=== PATIENT | male | born 1960 | race Caucasian/White ===

== ENCOUNTER 2023-04-02 07:47 | Emergency (ER) | payer BC, SELFPAY ==
[2023-04-02 07:50] VITALS: BP 125/48
--- NOTE | 2023-04-02 08:38 | ED.GENMED ---
History of Present Illness
General
Chief Complaint: Fall
Source: patient
Exam Limitations: none
Time Seen by Provider: 04/02/23 08:08
Nursing documentation reviewed up to this point in time: agreed with
Travel History
Have you had any contact with someone who has COVID-19?: No
Do you have any symptoms of coronavirus? Fever > 100 degrees, chills, cough, shortness of breath, sore throat, loss of taste or smell, muscle aches, or headache?: No
History of Present Illness
History of Present Illness:
62-year-old male with past medical history of A-fib currently on Xarelto, hypertension hyperlipidemia presenting to the emergency department today after a slip and fall. He claims that he was walking slipped and fell mainly on his right shoulder
and right elbow also may have hit his head did not blackout denies nausea vomiting does have a mild headache at this point. Does take Xarelto for atrial fibrillation. Denies any chest pain does have some mild back pain was able to stand up and
ambulate.
Past History
Past History
ED Past Medical History: Arrthythmia (Atrial fibrillation), CAD, HTN, Hypercholesterolemia and [place]
ED Past Surgical History: Cardiac
Social History
Tobacco: Non-smoker
Alcohol: None
Drug: None
Personal:
Living: with family
Employment: Employed
Family History
Family History: Other (Mother with leukemia)
Review of Systems
Review of Systems
Allergies reviewed?: Yes
All Other Systems: ROS reviewed and negative except as documented in HPI and ROS
Phy Exam
Physical Exam
Physical Exam:
GENERAL: Alert , in no apparent distress
EYE: pupils equal and reactive
NECK: Mild pain to the right lateral posterior neck no midline pain supple, no significant adenopathy.
ENT: o/p clr, mmm.
CARDIAC: Regular rate and rhythm .
LUNGS: Clear breath sounds bilaterally, no acute respiratory distress, no wheezes/rales/rhonchi
ABDOMEN: Soft, without focal tenderness, no r/g, no cvat
NEUROLOGICAL: Alert and oriented, no focal neuro deficits
SKIN: Warm and dry, skin intact.
MUSCULOSKELETAL: Tenderness palpation to the right lateral and anterior shoulder also mild tenderness to the olecranon but otherwise able to high scaler push and pull with the upper extremities bilaterally. Very minimal tenderness to the low back no
midline tenderness. Mild pain to the lumbar paraspinals.
PSYCH: Normal and appropriate interaction.
Course
Orders/Labs/Results
Orders:
Orders
04/02/23 08:21
CT Cervical Spine W/o Iv Contr Urgent
Comment:
Reason For Exam: call neck pain
CT Head W/o Iv Contrast Urgent
Comment:
Reason For Exam: fall xarelto
CR Elbow - Right Min 3 Views Urgent
Comment:
Reason For Exam: fall right elbow pain
CR Shoulder, Trauma - Right Urgent
Comment:
Reason For Exam: fall shoulder pain
04/02/23 08:22
Lumbar Spine, 2 or 3 View [CR Lumbar Spine 2 Or 3 Views] Urgent
Comment:
Reason For Exam: fall back pain
04/02/23 09:29
Sling Right-Treatment ONCE
Vital Signs
Initial and Last Documented VS:
Initial Vital Signs
Temp Pulse Resp BP Pulse Ox
98.7 F 77 18 125/48 97
04/02/23 07:50 04/02/23 07:50 04/02/23 07:50 04/02/23 07:50 04/02/23 07:50
Last Documented Vital Signs
Temp Pulse Resp BP Pulse Ox
98.7 F 65 20 130/73 97
04/02/23 07:50 04/02/23 09:16 04/02/23 09:16 04/02/23 09:16 04/02/23 09:16
MDM/Problems Addressed
MDM/Problems Addressed:
62-year-old male presenting to the emergency department after a slip and fall on ice mainly concerned of right-sided shoulder discomfort also some pain to the right elbow some mild neck back pain and also mild headache. Patient is on Xarelto may
have hit his head. Did not lose consciousness no vomiting no numbness or weakness. CT scan of head and neck were obtained. No emergent findings on head CT or neck CT. X-ray of the right shoulder shows potential fracture to the proximal humerus.
Patient was placed in a sling will follow-up closely with orthopedics. Otherwise no emergent findings able to ambulate stable for outpatient management return precautions given.
*Critical Care Note
Total Time (30-74mins, 75-104mins- exclusive of procedures): Not Applicable
ED Attending Note
-
Portions of this chart may have been created with voice recognition software.� Occasional wrong word or��sound alike� substitutions may have occurred due to the inherent limitations of voice recognition software.
Discharge Plan
Departure
Patient Disposition: Home (Routine Discharge)
Date of Disposition: 04/02/23
Time of Disposition: 09:29
Patient with high blood pressure during this ER visit?: No
Condition: Good
Covid-19: Not Applicable
Discharge Problem:
Fracture of shoulder, Back pain, Fall
Instructions: Low Back Pain (DC), Upper Arm Fracture
Prescriptions:
New
diazepam [Valium] 5 mg tablet
5 mg PO BID PRN (Reason: muscle spasm) Qty: 7 0RF
No Action
aspirin 81 MG tablet,delayed release (DR/EC)
81 mg PO DAILY
amlodipine 5 MG tablet
5 mg PO DAILY
lisinopril 5 MG tablet
40 mg PO DAILY
ezetimibe 10 MG tablet
10 mg PO DAILY
atorvastatin 80 MG tablet
80 mg PO DAILY
apixaban [Eliquis] 5 MG tablet
5 mg PO BID Qty: 60 0RF
metoprolol succinate 50 MG tablet extended release 24 hr
50 mg PO BID
amiodarone [Pacerone] 200 MG tablet
200 mg PO BID Qty: 60 0RF
Rx Instructions:
please take 200mg twice daily for 30 days then decrease to 200mg daily!
FILL FIRST!
amiodarone [Pacerone] 200 MG tablet
200 mg PO DAILY Qty: 30 11RF
Rx Instructions:
please take 200mg twice daily for 30 days then decrease to 200mg daily!
FILL SECOND!
metoprolol tartrate 50 MG tablet
75 mg PO BID Qty: 60 0RF
Referrals:
Dileep Ortiz MD [Family Provider] -
Benny Tadeo MD [Active] - Follow up in 1 week
Stand Alone Forms: Return to Work
Activity Restrictions/Additional Instructions:
You came to the emergency department today after a fall. You are found to have a fracture of the right shoulder. Please wear the sling until orthopedic follow-up within 1 week. Otherwise you had a normal head CT and neck CT. Please rest ice
compress and elevate all other injuries. Return to the emergency department for any worsening, new or concerning symptoms.
Interventions
Interventions:
*Risk Screen - Suicide Last Done: 04/02/23 07:50
*General Assessment Last Done: 04/02/23 07:50
*Neglect/Abuse Screening Last Done: 04/02/23 07:50
ED-Musculoskeletal Assessment Last Done: 04/02/23 09:16
ED- Neurological Assessment Last Done: 04/02/23 09:16
ED-Skin Assessment Last Done: 04/02/23 09:16
[2023-04-02 09:16] VITALS: BP 130/73
== END 2023-04-02 10:00 | disposition home or self-care (01) ==
LOC: EMR 07:47
PROVIDERS: EMERGENCY PHYSICIAN Emergency Medicine; FAMILY PHYSICIAN Family Medicine
DX: S42.91XA Fracture of right shoulder girdle, part unspecified, initial encounter for closed fracture (principal); M54.9 Dorsalgia, unspecified; M54.2 Cervicalgia; R51.9 Headache, unspecified; M25.521 Pain in right elbow; W00.0XXA Fall on same level due to ice and snow, initial encounter; Y93.01 Activity, walking, marching and hiking; I25.10 Atherosclerotic heart disease of native coronary artery without angina pectoris; I48.91 Unspecified atrial fibrillation; E78.00 Pure hypercholesterolemia, unspecified; G62.9 Polyneuropathy, unspecified; I10 Essential (primary) hypertension; I25.2 Old myocardial infarction; Z95.5 Presence of coronary angioplasty implant and graft; Z79.01 Long term (current) use of anticoagulants; Z79.82 Long term (current) use of aspirin
CPT/HCPCS: 99285; 70450; 72100; 72125; 73030; 73080

== ENCOUNTER 2023-06-04 07:28 | Emergency (ER) | payer BC, SELFPAY ==
[2023-06-04 07:29] VITALS: BP 164/89
--- NOTE | 2023-06-04 08:11 | ED.GENMED ---
History of Present Illness
General
Chief Complaint: Breathing Problem
Source: patient
Time Seen by Provider: 06/04/23 07:48
Travel History
Have you had any contact with someone who has COVID-19?: No
Do you have any symptoms of coronavirus? Fever > 100 degrees, chills, cough, shortness of breath, sore throat, loss of taste or smell, muscle aches, or headache?: No
History of Present Illness
History of Present Illness:
63-year-old male presents emergency room complaining of shortness of breath with exertion. Patient began experiencing the symptoms months ago. It has progressed in nature. Today he felt short of breath walking from his apartment to his car. He
felt so short of breath he felt like 'I ran a marathon'. Patient did discuss the symptoms with his event specialist about a month ago. An echocardiogram, pulmonary function test and blood work were ordered. Patient did schedule the PFTs but is not
scheduled the echo and has not had the blood work obtained. He called cardiology office today explaining that he felt more short of breath who of course referred him to the emergency room. Patient states he has some 'soreness' in his chest when he
takes a deep breath and also has coughing spasms when he takes a deep breath. He denies any smoking history. Patient does take amiodarone.
Past History
Past History
ED Past Medical History: Arrthythmia (Atrial fibrillation), CAD, HTN, Hypercholesterolemia and [place]
ED Past Surgical History: Cardiac
Social History
Tobacco: Non-smoker
Alcohol: None
Drug: None
Personal:
Living: with family
Employment: Employed
Family History
Family History: Other (Mother with leukemia)
Phy Exam
Physical Exam
Physical Exam:
General: Awake, Alert, Oriented X3. No acute distress.
Vitals: unremarkable
Head: Atraumatic
Eyes: Pupils equal, EOMI
Throat: Airway intact, no exudates
Neck: Trachea midline
Lungs: Coughing with deep inspiration but no significant wheezing.
Heart: Regular rate, no murmurs
Abd: Soft, Nontender, No pulsatile mass
Neuro: Nonfocal
Skin: Warm, dry, no rash
Extremities: pulses equal b/l, no edema
Scores
Heart Failure Risk
Heart Failure Risk Score: Not Applicable
Course
Orders/Labs/Results
Orders:
Orders
06/04/23 07:32
ECG [Electrocardiogram (*1)] Urgent
Reason for Study: Shortness of Breath
EKG- Treatment ONCE
06/04/23 08:04
Ipratropium/Albuterol Sulfate [Duoneb] 3 ml INH R NOW STA
06/04/23 08:05
CR Chest - 2 Views Urgent
Comment:
Reason For Exam: shortness of breath
06/04/23 08:13
Complete Blood Count/With Diff Urgent
Comprehensive Metabolic Panel Urgent
D-Dimer Urgent
NT-proBNP Urgent
Abnormal Lab Results
06/04/23
08:13
Hgb 10.7 L g/dL
(13.0-18.0)
Hct 35.4 L %
(39.0-52.0)
MCV 69.3 L fL
(80.0-94.0)
MCH 20.9 L pg
(27.0-31.0)
MCHC 30.2 L g/dL
(33.0-37.0)
RDW 18.1 H %
(11.5-14.5)
Absolute Neuts (auto) 6.6 H 10^3/uL
(1.4-6.5)
Absolute Lymphs (auto) 0.4 L 10^3/uL
(1.2-3.4)
Absolute Monos (auto) 1.0 H 10^3/uL
(0.1-0.6)
Neutrophils % 82.7 H %
(42.2-75.2)
Lymphocytes % 4.6 L %
(20.5-51.1)
Monocytes % 11.9 H %
(1.7-9.3)
Sodium 132 L mmol/L
(135-145)
Glucose 110 H mg/dl
(70-99)
06/04/23 08:13
06/04/23 08:13
Vital Signs
Initial and Last Documented VS:
Initial Vital Signs
Temp Pulse Resp BP Pulse Ox
99.3 F 77 20 164/89 98
06/04/23 07:29 06/04/23 07:29 06/04/23 07:29 06/04/23 07:29 06/04/23 07:29
Last Documented Vital Signs
Temp Pulse Resp BP Pulse Ox
99.3 F 70 23 157/83 100
06/04/23 07:29 06/04/23 08:30 06/04/23 08:30 06/04/23 08:12 06/04/23 08:30
MDM/Problems Addressed
Differential Diagnosis Includes:
Heart failure, anemia, PE, pneumonitis
MDM/Problems Addressed:
Patient presents with dyspnea on exertion. His chest x-ray is essentially unremarkable. Labs show anemia with a hemoglobin of 10.3. Indices indicate iron deficiency. His hemoglobin is 3 g below what he had a year ago. No obvious rectal
bleeding. Patient will require workup for anemia. Will start him on iron given his indices suggest iron deficiency anemia but primary care doctor contacted to help arrange close outpatient follow-up.
*Radiology
Radiology exam reviewed: radiology read reviewed
*Pulse Oximetry
Patient hypoxic: no
*EKG
Interpreted by ED Provider?: Yes
Heart Rate: 77
Rate: normal
Rhythm: sinus
[place]: left axis deviation
Interval: normal interval
QRS Pattern: normal QRS
Ischemia: no ischemia
*Ditch Rider Interpretation
Rate: normal
Interpretation: normal
Rhythm: sinus
*Critical Care Note
Total Time (30-74mins, 75-104mins- exclusive of procedures): Not Applicable
ED Attending Note
-
Portions of this chart may have been created with voice recognition software.� Occasional wrong word or��sound alike� substitutions may have occurred due to the inherent limitations of voice recognition software.
Discharge Plan
Departure
Patient Disposition: Home (Routine Discharge)
Date of Disposition: 06/04/23
Time of Disposition: 09:42
Patient with high blood pressure during this ER visit?: Yes
Condition: Good
Discharge Problem:
Dyspnea on exertion, Anemia
Instructions: Anemia Caused by Low Iron, Adult (DC), Shortness of Breath (Dyspnea) (DC)
Prescriptions:
New
ferrous sulfate [Iron (ferrous sulfate)] 325 mg (65 mg iron) tablet
325 mg PO DAILY Qty: 30 0RF
No Action
aspirin 81 MG tablet,delayed release (DR/EC)
81 mg PO DAILY
amlodipine 5 MG tablet
5 mg PO DAILY
ezetimibe 10 MG tablet
10 mg PO DAILY
atorvastatin 80 MG tablet
80 mg PO DAILY
amiodarone [Pacerone] 200 MG tablet
200 mg PO DAILY Qty: 30 11RF
metoprolol succinate 100 mg Tablet Extended Release 24 Hr
100 mg PO BID
clonazepam 1 mg Tablet
1 mg PO HS PRN (Reason: sleep)
lisinopril 40 mg Tablet
40 mg PO DAILY
Xarelto 20 mg Tablet
20 mg PO QPM
Referrals:
Dileep Ortiz MD [Family Provider] -
Activity Restrictions/Additional Instructions:
You came to the emergency room for evaluation of shortness of breath. Your chest x-ray does not show any significant abnormalities. Your blood work shows that you have anemia which appears to be related to low iron. The rest your labs are
unremarkable. There is no evidence that you have heart failure. You need to follow-up with your primary care doctor to have further evaluation for the anemia. In the meantime we will start you on iron. The iron tablets can cause constipation so
you should take a stool softener along with the iron tablets.
Interventions
Interventions:
*Risk Screen - Suicide Last Done: 06/04/23 08:13
*General Assessment Last Done: 06/04/23 08:13
*Neglect/Abuse Screening Last Done: 06/04/23 08:13
ED- Fall Risk Assessment Last Done: 06/04/23 08:13
*ED COVID-19 Vaccine History Last Done: 06/04/23 07:29
*Nursing Disposition Last Done: 06/04/23 09:50
ED- Cardiac Assessment Last Done: 06/04/23 08:13
ED- Pulmonary Assessment Last Done: 06/04/23 08:13
Discharge Date and Time
Discharge Date/Time: 06/04/23 09:56
Print Language: MALAY
[2023-06-04 08:12] VITALS: BP 157/83
[2023-06-04 08:13] VITALS: BMI 35.6
[2023-06-04] MEDS: DUONEB 3 ML INH (08:20)
[2023-06-04 08:38] LABS: % Basophils 0.2 % (0-2); % Eosinophils 0.2 % (0-6); % Immature Granulocytes 0.4 % (0-0.5); % Lymphocytes 4.6 % (20.5-51.1); % Monocytes 11.9 % (1.7-9.3); % Neutrophils 82.7 % (42.2-75.2); Absolute Lymphocytes 0.4 10^3/uL (1.2-3.4); Absolute Neutrophils 6.6 10^3/uL (1.4-6.5); Hematocrit 35.4 % (39.0-52.0); Hemoglobin 10.7 g/dL (13.0-18.0); Mean Corp Hgb Conc. 30.2 g/dL (33.0-37.0); Mean Corpuscular Hgb 20.9 pg (27.0-31.0); Mean Corpuscular Volume 69.3 fL (80.0-94.0); Mean Platelet Volume 9.7 fL (7.4-10.4); Nucleated Red Blood Cells % 0 % (-); Platelet Count 238 10^3/uL (130-400); Red Blood Cell Count 5.11 10^6/uL (4.70-6.10); Red Cell Dist. Width 18.1 % (11.5-14.5)
[2023-06-04 08:57] LABS: ALT (SGPT) 24 U/L (0-50); AST (SGOT) 17 U/L (17-59); Alkaline Phosphatase 111 U/L (38-126); Blood Urea Nitrogen 20 mg/dl (9-20); Carbon Dioxide 25 mmol/L (22-30); Chloride 100 mmol/L (98-107); Estimated Creatinine Clearance 101 ml/min; Glucose 110 mg/dl (70-99); Potassium 4.9 mmol/L (3.5-5.1); Sodium 132 mmol/L (135-145); Total Bilirubin 0.8 mg/dl (0.2-1.3); Total Protein 6.5 g/dl (6.3-8.2); eGFR > 60.00
[2023-06-04 09:00] LABS: NT-proBNP 629 pg/ml
[2023-06-04 09:05] LABS: D-Dimer < 0.27 ug/mlFEU (0.00-0.50)
== END 2023-06-04 09:56 | disposition home or self-care (01) ==
LOC: EMR 07:28
PROVIDERS: EMERGENCY PHYSICIAN Emergency Medicine; FAMILY PHYSICIAN Family Medicine
DX: R06.09 Other forms of dyspnea (principal); D64.9 Anemia, unspecified; I10 Essential (primary) hypertension
CPT/HCPCS: 99285; 94640; 71046; 80053; 83880; 85025; 85379; 93005

== ENCOUNTER 2023-06-05 05:42 | Observation (INO) | payer BC, SELFPAY ==
[2023-06-04 20:27] VITALS: BP 173/100
[2023-06-04 21:17] LABS: COVID-19 Antigen Negative (Negative)
[2023-06-04 21:44] VITALS: BP 145/79
[2023-06-04 21:59] VITALS: BMI 38.9
[2023-06-04 22:00] VITALS: BP 139/75
[2023-06-04 22:30] VITALS: BP 142/79
[2023-06-05] VITALS (17 sets, daily range): BP systolic 123–145; BP diastolic 63–90; PULSE 89–90; O2SAT 95–96; BMI 37.8
[2023-06-05 01:44] LABS: % Basophils 0.3 % (0-2); % Eosinophils 0.1 % (0-6); % Immature Granulocytes 0.4 % (0-0.5); % Lymphocytes 3.4 % (20.5-51.1); % Monocytes 10.9 % (1.7-9.3); % Neutrophils 84.9 % (42.2-75.2); Absolute Lymphocytes 0.3 10^3/uL (1.2-3.4); Absolute Monocytes 1.1 10^3/uL (0.1-0.6); Absolute Neutrophils 8.4 10^3/uL (1.4-6.5); Hematocrit 38.9 % (39.0-52.0); Hemoglobin 11.6 g/dL (13.0-18.0); Mean Corp Hgb Conc. 29.8 g/dL (33.0-37.0); Mean Corpuscular Hgb 20.9 pg (27.0-31.0); Mean Corpuscular Volume 70.1 fL (80.0-94.0); Mean Platelet Volume 9.8 fL (7.4-10.4); Nucleated Red Blood Cells % 0 % (-); Platelet Count 225 10^3/uL (130-400); Red Blood Cell Count 5.55 10^6/uL (4.70-6.10); White Blood Cell Count 9.9 10^3/uL (4.8-10.8)
--- NOTE | 2023-06-05 01:50 | ED.GENMED ---
History of Present Illness
General
Chief Complaint: Breathing Problem
Source: patient
Exam Limitations: none
Time Seen by Provider: 06/05/23 00:44
Travel History
Have you had any contact with someone who has COVID-19?: No
Do you have any symptoms of coronavirus? Fever > 100 degrees, chills, cough, shortness of breath, sore throat, loss of taste or smell, muscle aches, or headache?: No
History of Present Illness
History of Present Illness:
This is a 63 year old male that comes in with c/o bilateral leg weakness. States that he was here earlier today and he was discharged. Stats that his leg weakness progressed and he can hardly stand up. States that he is SOB with standing. States
that he has a cough, fever, with chills, nausea, headache, dizziness, . Denies any chest pain, no bowel or bladder incontinence, urinary burning,
Past History
Past History
ED Past Medical History: Arrthythmia (Atrial fibrillation), CAD, HTN, Hypercholesterolemia, CT (X 2) and Other (Back pain, Numbness in arms and legs)
ED Past Surgical History: Cardiac (Multiple stents) and Orthopedic (right knee surgery, Ulnar nerve removed Left elbow)
Social History
Tobacco: Non-smoker
Alcohol: Occasional
Drug: None
Personal:
Living: with family
Employment: Employed
Family History
Family History: Other (Mother with leukemia)
Review of Systems
Review of Systems
All Other Systems: ROS reviewed and negative except as documented in HPI and ROS
Constitutional: Reports fever and chills
EENT: Reports no symptoms
Respiratory: Reports cough and trouble breathing
Cardiac: Reports no symptoms; Denies chest pain
ABD/GI: Reports nausea; Denies abdominal pain, vomiting or diarrhea
: Reports no symptoms; Denies dysuria, frequency, incontinence or urgency
Musculoskeletal: Reports other (Bilateral leg weakness)
Skin: Reports no symptoms
Neurological: Reports dizzy and headache
Psychiatric: Reports no symptoms
Phy Exam
General Physical Exam
General Presentation: no apparent distress
General age: appears stated age
General Skin: warm and dry
General Habitus: elderly, obese and poor hygiene
General Mental: alert
General Hydration: appears well hydrated
ENT Exam
ENT Exam: TM's normal, pharynx normal and neck supple
Eye Exam
Eye Exam: PERRL and EOMI
Cardiovascular Exam
Cardiovascular Exam: regular rate/rhythm and normal peripheral pulses
Pulmonary Exam
Pulmonary Exam: lungs clear, no respiratory distress, no rales, chest non tender, no crackles, no rhonchi, no wheezing and other (Dry cough noted)
Gastrointestinal Exam
Gastrointestinal Exam: normal bowel sounds, non tender, soft, no organomegaly, no pulsatile mass, non distended and other (Obese)
NIH Stroke Score
Level of Consciousness: 0 - Alert
LOC questions: 0-Answers both correctly
LOC Commands: 0-Performs both correctly
Best Gaze: 0-Normal
Visual Cruz: 0=Normal, no visual loss
Facial palsy: 0=Normal, symmetrical
Motor - Right Arm: 0=No drift 10 seconds
Motor - Left Arm: 0=No drift 10 seconds
Motor - Right Le-No drift 5 seconds (Unable to hold legs up)
Motor - Left Le-No drift 5 seconds (Unable to hold legs up)
Limb Ataxia: 0-Absent
Sensation: 0-Normal
Best Language: 0-No aphasia
Dysarthria: 0-Normal
Extinction and Inattention: 0-No abnormality
Total Score:: 0
Musculoskeletal Exam
Musculoskeletal Exam: other (Push pulls slightly weaker left foot, Hand grasp slightly weaker left hand)
Skin Exam
Skin Exam: normal color, warm/dry, no rash and no petechia
Psychiatric Exam
Psychiatric Exam: normal mood/affect
Scores
Heart Failure Risk
Heart Failure Risk Score: Not Applicable
Course
Orders/Labs/Results
Orders:
Orders
06/04/23 20:35
COVID-19 Antigen Urgent
Source: Nasal Swab
Influenza A+B Rapid Molecular Urgent
LIANNA Source: Nasal Swab
Specimen Description:
06/05/23 01:31
CMP [Comprehensive Metabolic Panel] Urgent
Complete Blood Count/With Diff Urgent
06/05/23 01:48
CT Chest With Iv Contrast Urgent
Comment:
Reason For Exam: SOB, weakness, Cough
CT Head W/o Iv Contrast Urgent
Comment:
Reason For Exam: Leg weakness
06/05/23 01:53
Urinalysis Reflex To Culture Urgent
06/05/23 02:00
Electrocardiogram (*1) Urgent
Reason for Study: Fatigue / Weakness
EKG- Treatment ONCE
Troponin I Urgent
Abnormal Lab Results
06/05/23
01:31
Hgb 11.6 L g/dL
(13.0-18.0)
Hct 38.9 L %
(39.0-52.0)
MCV 70.1 L fL
(80.0-94.0)
MCH 20.9 L pg
(27.0-31.0)
MCHC 29.8 L g/dL
(33.0-37.0)
RDW 19.0 H %
(11.5-14.5)
Absolute Neuts (auto) 8.4 H 10^3/uL
(1.4-6.5)
Absolute Lymphs (auto) 0.3 L 10^3/uL
(1.2-3.4)
Absolute Monos (auto) 1.1 H 10^3/uL
(0.1-0.6)
Neutrophils % 84.9 H %
(42.2-75.2)
Lymphocytes % 3.4 L %
(20.5-51.1)
Monocytes % 10.9 H %
(1.7-9.3)
Sodium 134 L mmol/L
(135-145)
Carbon Dioxide 20 L mmol/L
(22-30)
Glucose 112 H mg/dl
(70-99)
06/05/23 01:31
06/05/23 01:31
H/H slightly low Anemia. Negative for COVID and Influenza, Carbon dioxide slightly low, glucose nonfasting,
Vital Signs
Initial and Last Documented VS:
Initial Vital Signs
Temp Pulse Resp BP Pulse Ox
100.7 F H 88 24 173/100 97
06/04/23 20:27 06/04/23 20:27 06/04/23 20:27 06/04/23 20:27 06/04/23 20:27
Last Documented Vital Signs
Temp Pulse Resp BP Pulse Ox
100.7 F H 84 31 142/79 95
06/04/23 20:27 06/04/23 23:15 06/04/23 23:15 06/04/23 22:30 06/04/23 22:45
MDM/Problems Addressed
Differential Diagnosis Includes:
CVA, PNA, UTI
MDM/Problems Addressed:
This is a 63 year old male that was seen here earlier today and sent home. Patient come back stating that he can't walk and his bilateral legs are weak. States that he has a fever, chills, nausea, headache and dizziness. States that he is also SOB.
Will get las. CT head, CT chest and admit as patient is unable to stand for any length of time and needed to be removed from the BR in a wheelchair. Will admit
Hospitalist notified about admission.
Chronic conditions affecting care: CAD
Acute Exacerbation and/or Progression of Chronic Illness: CAD
*Radiology
Radiology exam reviewed: radiology read reviewed (CT head night hawk-No acute intracranial process. NO intracranial bleed. No calvarial fracture. Chest CT Night hawk-Extensive coronary artery calcificaions. Normal heart size. NO pleural or
pericardial effusions. MIld atelectasis at the lung base. No Pneumonia. Mild multilevel degenerative changes) and other (CT deborah=with in the spine)
*Pulse Oximetry
Patient hypoxic: no
*Chiropractic Doctor Interpretation
Rate: Chiropractic Doctor- N/A
*Critical Care Note
Total Time (30-74mins, 75-104mins- exclusive of procedures): Not Applicable
ED Attending Note
-
Portions of this chart may have been created with voice recognition software.� Occasional wrong word or��sound alike� substitutions may have occurred due to the inherent limitations of voice recognition software.
Discharge Plan
Departure
Patient Disposition: Admit
Date of Disposition: 06/05/23
Time of Disposition: 04:10
Admit to: Med/Surg
Presentation/result/management discussed w/ accepting MD/DO: Hospitalist
Patient with high blood pressure during this ER visit?: Yes
Condition: Good
Covid-19: Not Applicable
Discharge Problem:
Weakness, Fever, SOB (shortness of breath)
Prescriptions:
No Action
aspirin 81 MG tablet,delayed release (DR/EC)
81 mg PO DAILY
amlodipine 5 MG tablet
5 mg PO DAILY
ezetimibe 10 MG tablet
10 mg PO DAILY
atorvastatin 80 MG tablet
80 mg PO DAILY
amiodarone [Pacerone] 200 MG tablet
200 mg PO DAILY Qty: 30 11RF
metoprolol succinate 100 mg Tablet Extended Release 24 Hr
100 mg PO BID
clonazepam 1 mg Tablet
1 mg PO HS PRN (Reason: sleep)
lisinopril 40 mg Tablet
40 mg PO DAILY
Xarelto 20 mg Tablet
20 mg PO QPM
ferrous sulfate [Iron (ferrous sulfate)] 325 mg (65 mg iron) tablet
325 mg PO DAILY Qty: 30 0RF
Referrals:
Dileep Ortiz MD [Family Provider] -
Interventions
Interventions:
*Risk Screen - Suicide Last Done: 06/04/23 20:27
*General Assessment Last Done: 06/04/23 20:27
*Neglect/Abuse Screening Last Done: 06/04/23 20:27
ED- Fall Risk Assessment Last Done: 06/04/23 21:46
*ED COVID-19 Vaccine History Last Done: 06/04/23 21:46
ED- Cardiac Assessment Last Done: 06/04/23 21:46
ED- Pulmonary Assessment Last Done: 06/04/23 21:46
Discharge Date and Time
Print Language: CZECH
[2023-06-05 01:53] LABS: ALT (SGPT) 24 U/L (0-50); AST (SGOT) 18 U/L (17-59); Albumin 4.4 g/dl (3.5-5.0); Alkaline Phosphatase 114 U/L (38-126); Blood Urea Nitrogen 16 mg/dl (9-20); Calcium 8.8 mg/dl (8.4-10.2); Carbon Dioxide 20 mmol/L (22-30); Chloride 102 mmol/L (98-107); Estimated Creatinine Clearance 106 ml/min; Glucose 112 mg/dl (70-99); Potassium 4.3 mmol/L (3.5-5.1); Sodium 134 mmol/L (135-145); Total Bilirubin 0.6 mg/dl (0.2-1.3); Total Protein 6.9 g/dl (6.3-8.2); eGFR > 60.00
--- NOTE | 2023-06-05 05:06 | HPS.HSE ---
Family Physician
-
Family Physician: Dileep Ortiz
Chief Complaint
-
Weakness, Cough, Difficulty walking
History of Present Illness
Patient is a 63y M with PMH significant for ASCVD, hypertension and obesity who presents to ED complaining of weakness, cough, dyspnea with exertion and difficulty walking. Patient states that he has been having symptoms of LE weakness,
difficulty walking and SOB with exertion / activity for several months now. He was seen by his Investment Manager (Dr. Fitzpatrick) last month and outpatient testing was ordered and has yet to be completed. His amiodarone dose was decreased by 1/2 at that
time.
Patient states that since then his symptoms have become 'exponentially worse'.
He presented to the ED earlier today with these complaints. Work-up was unremarkable with the exception of anemia that was new from prior. He was prescribed iron supplementation and advised to follow-up with his outpatient physicians.
Patient returns this evening with same complaints and also notes cough, chills and sore throat. These symptoms were not mentioned / noted during his earlier visit.
Patient states that he did have COVID about 6 weeks ago.
No other recent illnesses or travel or known sick contacts.
Patient was initially ambulating during this ED visit - in the room, hallways, to the bathroom, etc. However, at some point her noted that he was no longer able to ambulate.
He states that he has had difficulty standing / walking due to LE weakness - again for the past few months but worse over the past few weeks.
No fall, injury or trauma.
Medical History
Past Medical History
Past Medical History: Reports Other
Additional Past Medical History:
ASCVD
h/o Ischemic Cardiomyopathy with Recovered LVEF
Hypertension
Dyslipidemia
Paroxysmal Atrial Fibrillation
Morbid Obesity
Past Surgical History: Reports Other
Additional Past Surgical History:
PTCA with Stent
Social History
Tobacco: Non-smoker
Alcohol: Occasional
Drug: None
Family History
Family History: Not pertinent
Allergies / Home Medications
Allergies reflects when Allergies were last updated in [facility].
Home Medications with original date entered in [facility]
Allergy/Medication List:
Allergies
Allergy/AdvReac Type Severity Reaction Status Date / Time
No Known Allergies Allergy Verified 06/04/23 07:30
Home Medications
aspirin 81 mg tablet,delayed release 81 mg PO DAILY Blood clot prevention/tx 06/05/15
amlodipine 5 mg tablet 5 mg PO DAILY Blood pressure 08/27/17
atorvastatin 80 mg tablet 80 mg PO DAILY High cholesterol 05/11/20
ezetimibe 10 mg tablet 10 mg PO DAILY High cholesterol 05/11/20
lisinopril 40 mg tablet 40 mg PO DAILY 06/04/23
rivaroxaban 20 mg tablet (Xarelto) 20 mg PO QPM 06/04/23
amiodarone 200 mg tablet (Pacerone) 100 mg PO DAILY 06/05/23
metoprolol succinate 50 mg tablet,extended release 24 hr 50 mg PO BID 06/05/23
Review of Systems
-
History Source: Patient
A 12 point ROS was completed and negative except as noted: Yes
Constitutional: Reports Fatigue and Chills; Denies Fever
EENT: Reports Sore Throat
Respiratory: Reports Cough and Trouble Breathing
Cardiac: Denies Chest Pain, Palpitations or Syncope
Abdomen/GI: Reports Nausea; Denies Abdominal Pain, Vomiting, Diarrhea or Constipated
: Denies Dysuria, Frequency or Flank Pain
Musculoskeletal: Reports Joint Pain; Denies Edema
Neurological: Reports Weakness; Denies Dizzy, Headache or Numbness
Psych: Denies Depression or Anxiety
Physical Exam
Vital Signs
Vital Signs
Temp Pulse Resp BP Pulse Ox
100.7 F H 84 31 142/79 95
06/04/23 20:27 06/04/23 23:15 06/04/23 23:15 06/04/23 22:30 04/17/24 22:45
Physical Exam
General: Other (63y M in no acute distress.)
HEENT: Other (Thick neck. No appreciable JVD.)
Respiratory: Other (Decreased BS throughout. Otherwise clear. Cough occasionally during exam.)
Cardiac: S1/S2 and Regular Rhythm; No Murmur
GI: Other (Obese, not tender. Pos BS.)
Musculoskeletal: No Clubbing, No Cyanosis and No Edema
Neuro: AO x 3 and Nonfocal/grossly intact
Laboratory Results
-
06/05/23 01:31
06/05/23 01:31
Laboratory Results
Total Bilirubin 0.6 mg/dl (0.2-1.3) 06/05/23 01:31
AST 18 U/L (17-59) 06/05/23 01:31
ALT 24 U/L (0-50) 06/05/23 01:31
Alkaline Phosphatase 114 U/L (38-126) 06/05/23 01:31
Impression/Plan
-
A/P: Patient is a 63y M with PMH significant for ASCVD, cardiomyopathy and morbid obesity who presents to ED complaining of weakness, WALLS, cough, etc.
Cough / Fever
- Observe overnight for further evaluation and treatment.
- CXR and CT scan negative for pulmonary infiltrates.
- COVID / influenza negative in the ED.
- Tmax here 100.7.
- Observe off of abx for now.
- Check procalcitonin.
- Supportive care for cough, sore throat, etc.
WALLS / Weakness
- This is a months-long issue - albeit worse in recent weeks.
- Would continue / complete work-up as suggested by Cardiology.
- Will check Echo here given history of cardiomyopathy and current symptoms.
- LE weakness / gait dysfunction are quite inconsistent - as noted during observation in the ED.
- PT / OT evaluations.
Microcytic Anemia
- Suspect degree of iron deficiency in patient on ASA and Xarelto.
- Follow H&H.
- Check iron studies, heme test stool, etc.
ASCVD
- Stable. NO complaints of chest pain.
- Continue current CV med regimen including ASA, statin, etc.
Paroxysmal Atrial Fibrillation
- Stable. Continue current amio (decreased dose 1 month ago), metoprolol, etc.
- Continue Xarelto for stroke risk reduction.
- Monitor on tele for any changes.
Benign Hypertension
- Stable. Continue BP med regimen with holding parameters.
Morbid Obesity due to excess calories
- Affects all aspects of care - and specifically exertional dyspnea, overall conditioning, etc.
- Encourage healthy diet and increased activity with goal of weight loss.
DVT Prophylaxis: On Xarelto
Code Status: Full
[2023-06-05 05:17] LABS: Urine Albumin Trace (Neg - Trace); Urine Bilirubin Negative (Negative); Urine Character Clear (Clear); Urine Color Yellow; Urine Glucose Negative (Negative); Urine Ketone Negative (Negative); Urine Leukocyte Negative (Negative); Urine Nitrite Negative (Negative); Urine Occult Blood 1+ (Negative); Urine Specific Gravity 1.005 (<1.030); Urine Urobilinogen Negative (Neg - 1+); Urine pH 6.5 (5.0-9.0)
[2023-06-05 05:30] LABS: Troponin I < 0.012 ng/ml
[2023-06-05 05:45] LABS: Urine Amorphous Seen
[2023-06-05 05:46] LABS: Urine Bacteria Few (Negative); Urine White Cell 0-2 /HPF (0-5)
[2023-06-05 05:53] LABS: Procalcitonin 0.34 ng/ml (0.0-0.25)
[2023-06-05 06:50] LABS: Hematocrit 35.1 % (39.0-52.0); Mean Corp Hgb Conc. 31.3 g/dL (33.0-37.0); Mean Corpuscular Hgb 21.2 pg (27.0-31.0); Mean Corpuscular Volume 67.8 fL (80.0-94.0); Mean Platelet Volume 9.6 fL (7.4-10.4); Platelet Count 209 10^3/uL (130-400); Red Blood Cell Count 5.18 10^6/uL (4.70-6.10); Red Cell Dist. Width 18.3 % (11.5-14.5); White Blood Cell Count 10.2 10^3/uL (4.8-10.8)
[2023-06-05 07:05] LABS: Blood Urea Nitrogen 14 mg/dl (9-20); Calcium 8.6 mg/dl (8.4-10.2); Carbon Dioxide 22 mmol/L (22-30); Chloride 102 mmol/L (98-107); Estimated Creatinine Clearance 106 ml/min; Glucose 125 mg/dl (70-99); Potassium 3.9 mmol/L (3.5-5.1); Sodium 130 mmol/L (135-145); eGFR > 60.00
[2023-06-05 07:11] LABS: Troponin I < 0.012 ng/ml
[2023-06-05 07:31] LABS: TSH Reflex To Free T4 0.19 uIU/ml (0.47-4.68)
[2023-06-05 09:58] LABS: Total Iron Binding Capacity 425 ug/dl (261-462)
[2023-06-05] MEDS: MUCINEX 1200 MG PO ×2 (10:17→20:06)
[2023-06-05] MEDS: NORVASC 5 MG PO (10:17)
[2023-06-05] MEDS: LIPITOR 80 MG PO (10:17)
[2023-06-05] MEDS: PACERONE 100 MG PO (10:17)
[2023-06-05] MEDS: ASPIR LOW (ENTERIC COATED) 81 MG PO (10:17)
[2023-06-05] MEDS: PEPCID 20 MG PO ×2 (10:19→20:07)
[2023-06-05] MEDS: TOPROL XL 100 MG PO ×2 (10:19→20:07)
[2023-06-05] MEDS: ZESTRIL 40 MG PO (10:20)
--- NOTE | 2023-06-05 10:54 | CARDSERVDEF ---
Echocardiogram with Definity completed after protocol screening completed. Allergies verified.
Patent IV site: _Right antecubital site clear____
IV site flushed with 0.9% NaCl pre and post administration.
Diluted bolus method utilized to enhance visualization of ventricular calvin.
Total volume given: __3__ mL
Patient tolerated all procedures well without complications.
[2023-06-05 12:13] LABS: Ferritin 10.8 ng/ml (17.9-464.0)
[2023-06-05] MEDS: ZOSYN 50 IV ×2 (14:42→20:07)
--- NOTE | 2023-06-05 15:57 | W.PN.UPDATE ---
Update Note
Progress Note Update
Non-billable note
Admitting H&P reviewed.
Patient spiking fever -collect blood culture 2 sets
Seems like patient developed new microcytic anemia, denies of any previous colonoscopy. Ferritin low @ 10.8, CT abdomen pelvis done to rule out any overt malignancy.
check stool for occult blood
CT abdomen pelvis incidentally showing cecal and ascending colitis
Maintained on empiric Zosyn.
[2023-06-05] MEDS: XARELTO 20 MG PO (17:18)
[2023-06-05] MEDS: KLONOPIN 1 MG PO (20:07)
[2023-06-06] MEDS: ZOSYN 50 IV ×2 (01:56→08:02)
[2023-06-06] MEDS: TYLENOL 650 MG PO ×2 (02:10→08:02)
[2023-06-06 03:00] VITALS: BP 96/51
[2023-06-06 03:10] VITALS: BP 108/72
[2023-06-06 05:24] LABS: Hematocrit 34.8 % (39.0-52.0); Hemoglobin 10.5 g/dL (13.0-18.0); Mean Corp Hgb Conc. 30.2 g/dL (33.0-37.0); Mean Corpuscular Hgb 20.8 pg (27.0-31.0); Mean Corpuscular Volume 68.9 fL (80.0-94.0); Mean Platelet Volume 9.2 fL (7.4-10.4); Platelet Count 157 10^3/uL (130-400); Red Blood Cell Count 5.05 10^6/uL (4.70-6.10); Red Cell Dist. Width 18.4 % (11.5-14.5); White Blood Cell Count 7.1 10^3/uL (4.8-10.8)
[2023-06-06 05:48] LABS: Blood Urea Nitrogen 13 mg/dl (9-20); Calcium 8.8 mg/dl (8.4-10.2); Carbon Dioxide 23 mmol/L (22-30); Chloride 100 mmol/L (98-107); Estimated Creatinine Clearance 95 ml/min; Glucose 115 mg/dl (70-99); Potassium 3.6 mmol/L (3.5-5.1); Sodium 133 mmol/L (135-145); eGFR > 60.00
[2023-06-06 06:00] VITALS: BMI 37.5
[2023-06-06 07:00] VITALS: BP 158/83
[2023-06-06] MEDS: ASPIR LOW (ENTERIC COATED) 81 MG PO (08:02)
[2023-06-06] MEDS: LIPITOR 80 MG PO (08:02)
[2023-06-06] MEDS: MUCINEX 1200 MG PO (08:02)
[2023-06-06] MEDS: PEPCID 20 MG PO (08:03)
[2023-06-06] MEDS: TOPROL XL 100 MG PO (08:04)
[2023-06-06] MEDS: PACERONE 100 MG PO (08:11)
[2023-06-06] MEDS: ZESTRIL 40 MG PO (08:11)
[2023-06-06] MEDS: NORVASC 5 MG PO (08:11)
[2023-06-06 11:00] VITALS: BP 138/68
[2023-06-06 11:41] VITALS: PULSE 72; O2SAT 98
--- NOTE | 2023-06-06 11:46 | CM ---
Patient seen at bedside. Patient stated that he lives with his son in an apartment, patient has 3 flights of stairs to apartment. Patient PCP is Dr. Ortiz and he uses the [facility] pharmacy on [address] in [place]. Patient is independent of adl's
and Iadl's prior to admission and plans to have his son drive him home. Patient indicated that he has no DME at home and feels that he is very weak to go upstairs. Patient reviewed OBS status and signed form placed on chart. CM will continue to
follow for discharge planning needs.
Plan; home with VN vs home with no needs pending PT/OT assessment
[2023-06-06] MEDS: FLUZONE HIGH-DOSE QUAD 2023-24 0.699999999999999956 ML IM (11:49)
[2023-06-06] MEDS: PREVNAR 20 0.5 ML IM (11:49)
--- NOTE | 2023-06-06 12:35 | CM ---
Patient seen at bedside, home with no needs, declined VM. CM will continue to follow for discharge planning needs.
Plan; declined VN
--- NOTE | 2023-06-06 16:00 | W.PN.HOSP.TC ---
Today's Communication/Plan
-
d/c home
Assessment / Plan
Assessment / Plan
CT abd/pelv
Imaging for bowel pathology is limited by the lack of enteric contrast.
Despite this, there appears to be low density thickening from the cecum to the mid transverse colon suggesting colitis with mild pericolonic inflammatory stranding of the cecum

Ascending colon colitis
-Remains afebrile overnight
-CXR and CT scan negative for pulmonary infiltrates.
-COVID / influenza negative in the ED.
-Started on empiric Zosyn, transitioning to oral Augmentin at discharge
-of note Patient does not have any screening colonoscopy done in past. Have iron deficiency anemia. Discussed with patient that patient will require to follow-up with gastroenterology for routine colonoscopy.
Generalized weakness
-Likely worsening with ongoing infection
-Somewhat of a chronic issue.
-Physical therapy evaluated and appropriate for home health versus SNF rehab. Patient prefers home physical therapy.
Iron def anemia
-hbg stable over last 3 days
-heme test stool pending
-low ferriting , Iron panel reviewed
-patient will need to f/u with GI office.
ASCVD
- Stable. NO complaints of chest pain.
- Continue current CV med regimen including ASA, statin, etc.
Paroxysmal Atrial Fibrillation
- Stable. Continue current amio (decreased dose 1 month ago), metoprolol, etc.
- Continue Xarelto for stroke risk reduction.
- Monitor on tele for any changes.
Benign Hypertension
- Stable. Continue BP med regimen with holding parameters.
Morbid Obesity due to excess calories
- Affects all aspects of care - and specifically exertional dyspnea, overall conditioning, etc.
- Encourage healthy diet and increased activity with goal of weight loss.
DVT Prophylaxis: On Xarelto
Code Status: Full
More than 30 minutes spent in discharge including
Final examination of the patient
Summarizing hospital stay
Instructions for continuing care to all relevant caregivers
Preparation of discharge records, prescriptions, and referral forms
Total time spent (in minutes): 40 mins
Anticipated Discharge: Today
Subjective/Interval History
-
Date of Service: June 06, 2023
Patient subjectively feeling better
afebrile overnight
Objective Data
-
Labs:
Laboratory Results
06/06/23
05:10
WBC 7.1
Hgb 10.5 L
Hct 34.8 L
Plt Count 157 D
Sodium 133 L
Potassium 3.6
Chloride 100
Carbon Dioxide 23
BUN 13
Creatinine 1.1
Glucose 115 H
Calcium 8.8
Vital Signs:
Vital Signs
Temp Pulse Resp BP Pulse Ox
97.5 F 76 17 138/68 97
06/06/23 11:00 06/06/23 11:00 06/06/23 11:00 06/06/23 11:00 06/06/23 11:00
I&O
06/05/23 06/06/23 06/07/23
06:59 06:59 06:59
Intake Total 120 / 120
Output Total 200 / 200
Balance -80 / -80
Review of Systems
-
Respiratory: Reports No Symptoms
Cardiac: Reports No Symptoms
Abdomen/GI: Reports No Symptoms
Physical Exam
-
General: No Apparent Distress and Comfortable
HEENT: Negative Oxygen
Respiratory: Clear to Auscultation
Cardiac: Regular Rhythm and S1/S2; Negative Murmur or Rub
GI: Soft, Nontender and Nondistended
Musculoskeletal: No Edema
Neuro: Awake, Alert, Oriented, No Motor Deficits and Nonfocal/Grossly Intact
Psych: Calm
--- NOTE | 2023-06-07 07:48 | W.DCSUMMARY ---
Discharge Summary
Discharge Data
Date of Admission: 06/05/23
Date of Discharge: 06/06/23
-
Pending Results: No
Hospital Course
Discharging Physician : Dr Genaro Kirk
Disposition : Home
Primary care physician : Dr Dileep Ortiz
Principal Discharge diagnosis :
Ascending colon colitis
Iron deficiency anemia
Generalized weakness
Chronic Discharge diagnosis :
Coronary artery disease
Paroxysmal atrial fibrillation
Essential hypertension
Morbid obesity
Hospital Course :
Patient is a 63-year-old male with above-mentioned past medical history came to ER for having new onset of weakness cough and exertional dyspnea. Symptoms has been progressive over the last many weeks and patient has been seen by cardiology in
office. Patient also complaining of extreme weakness for last few days which is relatively new. In ER rapid evaluation patient did not have any major lab abnormalities. Chest x-ray/CT chest/COVID/influenza testing was negative. Patient was noted
to having incidental mild fever. Patient was also noted to having iron deficiency anemia. As patient have not undergone his screening colonoscopy there was question of patient possibly having underlying malignancy. A CT abdomen pelvis was done
which did not show any malignancy although incidentally showing ascending colon colitis. Patient was started on empiric IV antibiotic. Next 48 hours patient symptoms improved rapidly. Blood cultures remain negative on day of discharge. PT
evaluated patient and patient was appropriate for home level care. Patient was discharged on short course of empiric antibiotic. I have instructed patient to follow-up with gastroenterology office in 4 to 6-week as will require screening
colonoscopy. Iron deficiency can also explain patient overall lethargy/weakness as well.
Important imaging findings :
None
Procedure findings :
None
Discharge Plan
-
Patient Disposition: Home (Routine Discharge)
Discharge Diagnosis/Procedures: Ascending colitis, Generalized weakness, Iron def anemia
Condition: Fair
Diet: Regular
Activity: As tolerated
Driving Restrictions: As prior to admission
Bathing Restrictions: OK to Shower
Other Services: VN and PT
Referrals:
Mike Cardoso MD [Active] - in four to six weeks
Dileep Ortiz MD [Family Provider] - in one week
Alton Linda MD [Active] -
Prescriptions:
New
metoprolol succinate 100 mg Tablet Extended Release 24 Hr
100 mg PO BID Qty: 60 2RF
amoxicillin-pot clavulanate 875-125 mg tablet
1 tab PO BID Qty: 10 0RF
ferrous sulfate 325 mg (65 mg iron) tablet
325 mg PO DAILY Qty: 30 0RF
Continued
aspirin 81 MG tablet,delayed release (DR/EC)
81 mg PO DAILY
amlodipine 5 MG tablet
5 mg PO DAILY
ezetimibe 10 MG tablet
10 mg PO DAILY
atorvastatin 80 MG tablet
80 mg PO DAILY
lisinopril 40 mg Tablet
40 mg PO DAILY
Xarelto 20 mg Tablet
20 mg PO QPM
amiodarone [Pacerone] 200 MG tablet
100 mg PO DAILY
metoprolol succinate 100 mg Tablet Extended Release 24 Hr
100 mg PO BID
clonazepam 1 mg Tablet
1 mg PO HS PRN (Reason: sleep)
Discharge Orders:
Discharge Patient (As Directed); Ordered 06/06/23
Ordered By: Genaro Kirk
Discharge Date and Time
Discharge Date/Time: 06/06/23 12:53
Print Language: GAMBIAN
== END 2023-06-06 12:53 | disposition home or self-care (01) ==
LOC: 3 WEST ACU 05:42
PROVIDERS: Clinical Nurse Specialist Family Health; Emergency Medicine; ADMITTING PHYSICIAN Hospitalist; ATTENDING PHYSICIAN Hospitalist; EMERGENCY PHYSICIAN Emergency Medicine; FAMILY PHYSICIAN Family Medicine
DX: K52.89 Other specified noninfective gastroenteritis and colitis (principal); R06.02 Shortness of breath; R53.1 Weakness; R51.9 Headache, unspecified; R42 Dizziness and giddiness; R05.9 Cough, unspecified; R50.9 Fever, unspecified; E78.00 Pure hypercholesterolemia, unspecified; I10 Essential (primary) hypertension; I25.10 Atherosclerotic heart disease of native coronary artery without angina pectoris; R26.2 Difficulty in walking, not elsewhere classified; E66.01 Morbid (severe) obesity due to excess calories; I48.0 Paroxysmal atrial fibrillation; I25.2 Old myocardial infarction; I25.5 Ischemic cardiomyopathy; R53.83 Other fatigue; D50.9 Iron deficiency anemia, unspecified; Z79.01 Long term (current) use of anticoagulants; Z79.82 Long term (current) use of aspirin; Z80.6 Family history of leukemia; Z68.37 Body mass index [BMI] 37.0-37.9, adult; Z95.5 Presence of coronary angioplasty implant and graft; Z23 Encounter for immunization; Z11.52 Encounter for screening for COVID-19; Z86.16 Personal history of COVID-19
CPT/HCPCS: 70450; 71260; 74177; 80048; 80053; 81003; 81015; 82728; 83550; 84145; 84439; 84443; 84484; 85025; 85027; 87040; 87502; 87811; 90662; 90677; 93005; 93306; 97162; 99285; G0008; G0009; G0378; Q9957; Q9967

== ENCOUNTER → 2023-07-03 08:04 | Outpatient (REF) | payer BC, SELFPAY | LOC: RSP 08:04 | PROVIDERS: ATTENDING PHYSICIAN Internal Medicine Interventional Cardiology; FAMILY PHYSICIAN Family Medicine | DX: I25.10 Atherosclerotic heart disease of native coronary artery without angina pectoris (principal) | CPT/HCPCS: 94727; 94729; 88738; 94060 ==

== ENCOUNTER 2023-07-22 10:22 | Emergency (ER) | payer BC, SELFPAY ==
[2023-07-22 10:29] VITALS: BP 152/85
[2023-07-22 11:01] LABS: % Basophils 0.5 % (0-2); % Eosinophils 0.9 % (0-6); % Immature Granulocytes 0.2 % (0-0.5); % Lymphocytes 11.6 % (20.5-51.1); % Neutrophils 74.8 % (42.2-75.2); Absolute Eosinophils 0.1 10^3/uL (0-0.7); Absolute Lymphocytes 0.7 10^3/uL (1.2-3.4); Absolute Monocytes 0.7 10^3/uL (0.1-0.6); Absolute Neutrophils 4.2 10^3/uL (1.4-6.5); Hematocrit 37.9 % (39.0-52.0); Hemoglobin 11.9 g/dL (13.0-18.0); Mean Corp Hgb Conc. 31.4 g/dL (33.0-37.0); Mean Corpuscular Hgb 22.6 pg (27.0-31.0); Mean Corpuscular Volume 71.9 fL (80.0-94.0); Mean Platelet Volume 9.4 fL (7.4-10.4); Nucleated Red Blood Cells % 0 % (-); Platelet Count 216 10^3/uL (130-400); Red Blood Cell Count 5.27 10^6/uL (4.70-6.10); Red Cell Dist. Width 23.3 % (11.5-14.5); White Blood Cell Count 5.7 10^3/uL (4.8-10.8)
[2023-07-22 11:14] LABS: ALT (SGPT) 23 U/L (0-50); AST (SGOT) 20 U/L (17-59); Albumin 3.9 g/dl (3.5-5.0); Alkaline Phosphatase 95 U/L (38-126); Blood Urea Nitrogen 21 mg/dl (9-20); Calcium 8.6 mg/dl (8.4-10.2); Carbon Dioxide 24 mmol/L (22-30); Chloride 107 mmol/L (98-107); Glucose 117 mg/dl (70-99); Potassium 4.6 mmol/L (3.5-5.1); Sodium 137 mmol/L (135-145); Total Bilirubin 0.8 mg/dl (0.2-1.3); Total Protein 6.5 g/dl (6.3-8.2); eGFR > 60.00
[2023-07-22 11:26] LABS: Troponin I < 0.012 ng/ml
[2023-07-22 11:54] LABS: Normal RBC Morphology No
[2023-07-22 12:03] LABS: Ovalocytes FEW; Target Cells FEW
[2023-07-22 12:04] LABS: Poikilocytosis Slight; Polychromasia Slight
[2023-07-22 12:05] LABS: NT-proBNP 181 pg/ml
--- NOTE | 2023-07-22 15:43 | ED.GENMED ---
History of Present Illness
General
Chief Complaint: Breathing Problem
Time Seen by Provider: 07/22/23 15:43
Travel History
Have you had any contact with someone who has COVID-19?: No
Do you have any symptoms of coronavirus? Fever > 100 degrees, chills, cough, shortness of breath, sore throat, loss of taste or smell, muscle aches, or headache?: No
Past History
Past History
ED Past Medical History: Arrthythmia (Atrial fibrillation), CAD, HTN, Hypercholesterolemia, [place] (X 2) and Other (Back pain, Numbness in arms and legs)
ED Past Surgical History: Cardiac (Multiple stents) and Orthopedic (right knee surgery, Ulnar nerve removed Left elbow)
Social History
Tobacco: Non-smoker
Alcohol: Occasional
Drug: None
Personal:
Living: with family
Employment: Employed
Family History
Family History: Other (Mother with leukemia)
Course
Orders/Labs/Results
Orders:
Orders
07/22/23 10:25
ECG [Electrocardiogram (*1)] Urgent
Reason for Study: Chest Pain
EKG- Treatment ONCE
07/22/23 10:51
Complete Blood Count/With Diff Urgent
Comprehensive Metabolic Panel Urgent
NT-proBNP Urgent
Comment: ADD ON
Troponin I Urgent
07/22/23 11:06
Add On- LAB Urgent
Comments:: specimen in lab
Tests Added?: pro bnp
Abnormal Lab Results
07/22/23
10:51
Hgb 11.9 L g/dL
(13.0-18.0)
Hct 37.9 L %
(39.0-52.0)
MCV 71.9 L fL
(80.0-94.0)
MCH 22.6 L pg
(27.0-31.0)
MCHC 31.4 L g/dL
(33.0-37.0)
RDW 23.3 H %
(11.5-14.5)
Absolute Lymphs (auto) 0.7 L 10^3/uL
(1.2-3.4)
Absolute Monos (auto) 0.7 H 10^3/uL
(0.1-0.6)
Lymphocytes % 11.6 L %
(20.5-51.1)
Monocytes % 12.0 H %
(1.7-9.3)
BUN 21 H mg/dl
(9-20)
Glucose 117 H mg/dl
(70-99)
07/22/23 10:51
07/22/23 10:51
Vital Signs
Initial and Last Documented VS:
Initial Vital Signs
Temp Pulse Resp BP Pulse Ox
98.4 F 67 16 152/85 95
07/22/23 10:29 07/22/23 10:29 07/22/23 10:29 07/22/23 10:29 07/22/23 10:29
Last Documented Vital Signs
Temp Pulse Resp BP Pulse Ox
98.4 F 67 16 152/85 95
07/22/23 10:29 07/22/23 10:07/22/23 10:07/22/23 10:07/22/23 10:29
ED Attending Note
-
Portions of this chart may have been created with voice recognition software.� Occasional wrong word or��sound alike� substitutions may have occurred due to the inherent limitations of voice recognition software.
Discharge Plan
Departure
Prescriptions:
No Action
aspirin 81 MG tablet,delayed release (DR/EC)
81 mg PO DAILY
amlodipine 5 MG tablet
5 mg PO DAILY
ezetimibe 10 MG tablet
10 mg PO DAILY
atorvastatin 80 MG tablet
80 mg PO DAILY
lisinopril 40 mg Tablet
40 mg PO DAILY
Xarelto 20 mg Tablet
20 mg PO QPM
amiodarone [Pacerone] 200 MG tablet
100 mg PO DAILY
metoprolol succinate 100 mg Tablet Extended Release 24 Hr
100 mg PO BID
clonazepam 1 mg Tablet
1 mg PO HS PRN (Reason: sleep)
metoprolol succinate 100 mg Tablet Extended Release 24 Hr
100 mg PO BID Qty: 60 2RF
amoxicillin-pot clavulanate 875-125 mg tablet
1 tab PO BID Qty: 10 0RF
ferrous sulfate 325 mg (65 mg iron) tablet
325 mg PO DAILY Qty: 30 0RF
Discharge Date and Time
Print Language: BRUNEIAN
== END 2023-07-22 17:22 | disposition left against medical advice (07) ==
LOC: EMR 10:22
PROVIDERS: EMERGENCY PHYSICIAN Emergency Medicine
DX: R07.89 Other chest pain (principal); R53.83 Other fatigue; R00.2 Palpitations; R06.00 Dyspnea, unspecified; Z53.21 Procedure and treatment not carried out due to patient leaving prior to being seen by health care provider
CPT/HCPCS: 80053; 83880; 84484; 85025; 93005

== ENCOUNTER → 2023-10-02 07:43 | Outpatient (REF) | payer MEDICARE, SELFPAY | LOC: DHCBC/DCA 07:43 | PROVIDERS: ATTENDING PHYSICIAN Internal Medicine Interventional Cardiology; FAMILY PHYSICIAN Family Medicine | DX: I25.10 Atherosclerotic heart disease of native coronary artery without angina pectoris (principal); I25.5 Ischemic cardiomyopathy | CPT/HCPCS: 78452; 93017; A9500; J2785 ==

== ENCOUNTER 2023-11-28 06:15 | Inpatient (IN) | payer MEDICARE, SELFPAY ==
[2023-11-28] VITALS (20 sets, daily range): BP systolic 103–138; BP diastolic 72–95; BMI 37.7
[2023-11-28 04:10] LABS: % Basophils 0.7 % (0-2); % Eosinophils 2.2 % (0-6); % Immature Granulocytes 0.2 % (0-0.5); % Lymphocytes 21.3 % (20.5-51.1); % Monocytes 12.6 % (1.7-9.3); Absolute Eosinophils 0.1 10^3/uL (0-0.7); Absolute Lymphocytes 1.2 10^3/uL (1.2-3.4); Absolute Monocytes 0.7 10^3/uL (0.1-0.6); Absolute Neutrophils 3.4 10^3/uL (1.4-6.5); Hematocrit 48.8 % (39.0-52.0); Hemoglobin 17.1 g/dL (13.0-18.0); Mean Corpuscular Hgb 30.2 pg (27.0-31.0); Mean Corpuscular Volume 86.1 fL (80.0-94.0); Mean Platelet Volume 9.9 fL (7.4-10.4); Nucleated Red Blood Cells % 0 % (-); Platelet Count 201 10^3/uL (130-400); Red Blood Cell Count 5.67 10^6/uL (4.70-6.10); Red Cell Dist. Width 14.4 % (11.5-14.5); White Blood Cell Count 5.4 10^3/uL (4.8-10.8)
--- NOTE | 2023-11-28 04:16 | ED.GENMED ---
History of Present Illness
General
Chief Complaint: Heart Rate Problem
Source: patient
Exam Limitations: none
Time Seen by Provider: 11/28/23 04:07
History of Present Illness
History of Present Illness:
See MDM
Past History
Past History
ED Past Medical History: Arrthythmia (Atrial fibrillation), CAD, HTN, Hypercholesterolemia, [place] (X 2) and Other (Back pain, Numbness in arms and legs)
ED Past Surgical History: Cardiac (Multiple stents) and Orthopedic (right knee surgery, Ulnar nerve removed Left elbow)
Social History
Tobacco: Non-smoker
Alcohol: Occasional
Drug: None
Personal:
Living: with family
Employment: Employed
Family History
Family History: Other (Mother with leukemia)
Phy Exam
Physical Exam
Physical Exam:
See MDM
Course
Orders/Labs/Results
Orders:
Orders
11/28/23 03:05
EKG [Electrocardiogram (*1)] Urgent
Reason for Study: Palpitations
EKG- Treatment ONCE
11/28/23 03:27
Electrocardiogram (*1) Urgent
Reason for Study: Other
Other Reason for Exam: Respiratory Distress
Cardiac Monitoring- Treatment ONCE
EKG- Treatment ONCE
IV Insert/Care/Rem.- Treatment PRN
CR Chest - 2 Views Urgent
Comment:
Reason For Exam: respiratory distress
O2 Therapy [RESP] Urgent
Titrate/Wean O2 to maintain O2 sat greater than (%): 93
Special Instructions: TO MAINTAIN CONTINUOUS O2 SATS >/= 93%
Pulse Ox/cont/shift [RESP] Urgent
Quantity: 1
Special Instructions: continuous pulse ox
11/28/23 04:00
Complete Blood Count/With Diff Urgent
Comprehensive Metabolic Panel Urgent
NT-proBNP Urgent
Prothrombin Time Urgent
Is patient on Coumadin/Warfarin?: No
Troponin I Urgent
11/28/23 04:15
Magnesium Urgent
Diltiazem 125 mg/125 ml Nss [Cardizem] 125 mg in 125 ml IV NOW
Initial dose in mg/hr, then titrate:: 5
Titrate to keep:: Heart rate 80-100 bpm
Titrate by mg/hr:: 5 mg/hr
Frequency of titrations (minutes):: 15
Maximum dose in mg/hr:: 15
Diltiazem HCl [Cardizem] 20 mg IV NOW STA
11/28/23 04:33
Add On- LAB Urgent
Tests Added?: MAGNESIUM
Abnormal Lab Results
11/28/23
04:00
Absolute Monos (auto) 0.7 H 10^3/uL
(0.1-0.6)
Monocytes % 12.6 H %
(1.7-9.3)
Chloride 109 H mmol/L
(98-107)
Carbon Dioxide 15 L mmol/L
(22-30)
Glucose 105 H mg/dl
(70-99)
11/28/23 04:00
11/28/23 04:00
Vital Signs
Initial and Last Documented VS:
Initial Vital Signs
Temp Pulse Resp BP Pulse Ox
98.3 F 80 20 134/85 96
11/28/23 03:21 11/28/23 03:21 11/28/23 03:21 11/28/23 03:21 11/28/23 03:21
Last Documented Vital Signs
Temp Pulse Resp BP Pulse Ox
98.3 F 147 15 121/86 95
11/28/23 03:21 11/28/23 04:25 11/28/23 04:06 11/28/23 04:25 11/28/23 04:06
MDM/Problems Addressed
Differential Diagnosis Includes:
HPI and MDM Narrative:
63-year-old male presenting for evaluation of A-fib. Patient has a history of paroxysmal A-fib. Due to financial issues, he has not filled his amiodarone or Xarelto over the past month. Patient states medicines usually do not control the A-fib
and usually requires cardioversion. I discussed with patient that he is a poor cardioversion candidate given the noncompliance with Xarelto. Will start Cardizem drip
Physical exam
General: Well appearing and non-toxic
HEENT: protecting airway
Neck: appears supple
CV: No evidence of cyanosis. Tachycardic and irregular
Resp: No accessory muscle use
Abd: Non-distended
Extremities: No deformities
Neuro: alert
Psych: Normal affect
Skin: Intact
Problems Addressed including Acute and Chronic Conditions affecting care:
1. A-fib with RVR
Acuity: acute
Prognosis: unstable
Details: Due to Xarelto noncompliance, he is a poor candidate for synchronized cardioversion. Will attempt chemical cardioversion with Cardizem drip
Updates
Patient remains in A-fib with RVR despite being on the Cardizem drip. Will admit
Differential Diagnosis (but not limited to): A-fib with RVR, dehydration
Testing considered: Troponin
Drug therapy (if applicable): OTC meds, please see d/c instruction regarding Rx drugs
Amount and/or Complexity of Data Reviewed
Clinical info obtained from: Patient
External data reviewed: N/A
Labs I independently reviewed (but not limited to): Troponin normal
Radiology: X-ray independently reviewed: Chest x-ray clear
Pulse Ox: not hypoxic
EKG independently reviewed: A-fib with RVR, left axis, no STEMI
Emergency Vehicle Technician: A-fib with RVR
Critical Care: The high probability of a clinically significant, sudden or life threatening deterioration of the cardiovascular system(s) required my full and direct attention, intervention and personal management. The aggregate critical care time
was 33 minutes. This time is in addition to time spent performing reported procedures but includes the following:
[x] Data Review and interpretation
[x] Patient assessment and monitoring of vital signs
[x] Documentation
[x] Medication orders and management
Risk of Complication:
Social Determinants of health: Good social support
Discussed with other providers: Hospitalist
Escalation of Care includes Admit/Obs: Given uncontrolled A-fib while on Cardizem drip, will admit
Occasional wrong word or 'sound a like' substitutions may have occurred due to the inherent limitations of voice recognition software. Read the chart carefully and recognize, using context, where substitutions have occurred.
*Critical Care Note
Total Time (30-74mins, 75-104mins- exclusive of procedures): 33 min
ED Attending Note
-
Portions of this chart may have been created with voice recognition software.� Occasional wrong word or��sound alike� substitutions may have occurred due to the inherent limitations of voice recognition software.
Discharge Plan
Departure
Patient Disposition: Admit
Date of Disposition: 11/28/23
Time of Disposition: 04:51
Admit to: Telemetry
Presentation/result/management discussed w/ accepting MD/DO: Hospitalist
Discharge Problem:
Atrial fibrillation with rapid ventricular response
Prescriptions:
No Action
aspirin 81 MG tablet,delayed release (DR/EC)
81 mg PO DAILY
amlodipine 5 MG tablet
5 mg PO DAILY
ezetimibe 10 MG tablet
10 mg PO DAILY
atorvastatin 80 MG tablet
80 mg PO DAILY
lisinopril 40 mg Tablet
40 mg PO DAILY
Xarelto 20 mg Tablet
20 mg PO QPM
amiodarone [Pacerone] 200 MG tablet
100 mg PO DAILY
metoprolol succinate 100 mg Tablet Extended Release 24 Hr
100 mg PO BID
clonazepam 1 mg Tablet
1 mg PO HS PRN (Reason: sleep)
metoprolol succinate 100 mg Tablet Extended Release 24 Hr
100 mg PO BID Qty: 60 2RF
amoxicillin-pot clavulanate 875-125 mg tablet
1 tab PO BID Qty: 10 0RF
ferrous sulfate 325 mg (65 mg iron) tablet
325 mg PO DAILY Qty: 30 0RF
Interventions
Interventions:
*Risk Screen - Suicide Last Done: 11/28/23 03:21
*General Assessment Last Done: 11/28/23 03:21
*Neglect/Abuse Screening Last Done: 11/28/23 03:21
ED- Fall Risk Assessment Last Done: 11/28/23 03:21
*ED COVID-19 Vaccine History Last Done: 11/28/23 03:21
ED- Cardiac Assessment Last Done: 11/28/23 03:55
ED- Pulmonary Assessment Last Done: 11/28/23 03:55
Discharge Date and Time
Print Language: MOLDOVAN
[2023-11-28 04:20] LABS: INR 0.99; PT 13.1 Sec (11.4-14.6)
[2023-11-28] MEDS: CARDIZEM 20 MG IV (04:25)
[2023-11-28] MEDS: CARDIZEM 125 IV (04:28)
[2023-11-28 04:37] LABS: ALT (SGPT) 37 U/L (0-50); AST (SGOT) 22 U/L (17-59); Albumin 4.3 g/dl (3.5-5.0); Alkaline Phosphatase 79 U/L (38-126); Blood Urea Nitrogen 17 mg/dl (9-20); Calcium 9.6 mg/dl (8.4-10.2); Carbon Dioxide 15 mmol/L (22-30); Chloride 109 mmol/L (98-107); Estimated Creatinine Clearance 115 ml/min; Glucose 105 mg/dl (70-99); Sodium 142 mmol/L (135-145); Total Bilirubin 0.4 mg/dl (0.2-1.3); Total Protein 6.8 g/dl (6.3-8.2); eGFR > 60.00
[2023-11-28 04:44] LABS: NT-proBNP 135 pg/ml; Troponin I < 0.012 ng/ml
--- NOTE | 2023-11-28 05:41 | HPS.HSE ---
Family Physician
-
Family Physician:
Chief Complaint
-
Palpitations
History of Present Illness
This is a 66-year-old male with past medical history of atrial fibrillation on anticoagulation with Xarelto and reasonably controlled who presented emergency department after being awoken with episode of palpitation.
Patient reported that he been usual state of health up until event. He went to sleep well. He reported that he just arose with palpitations and some chest tightness. He denies chest pain. He denies any nausea or vomiting. He denies feeling
dizzy or lightheaded. Reports that this is reminiscent of his prior episodes of atrial fibrillation in the past. He has had 2 episodes of cardioversion in the past. He reported that due to job situation and insurance he was unable to refill his
Amio and his Xarelto for the last 1 month. He continues to take the metoprolol. He reports that his amiodarone dose was reduced from 200 to 100 mg due to dyspnea on exertion thought to be secondary to pulmonary impairment. Patient was recently
diagnosed with anemia and had extensive GI workup shown to have H. pylori status post appropriate antibiosis and PPI. Currently not on any medications for this.
On arrival in the emergency department the patient was hemodynamically stable. He was tachycardic to the 130s. ECG showed atrial fibrillation at a rate of 137. CBC was unremarkable. Chemistries notable for normal BUN/creatinine, bicarb was 15
but otherwise unremarkable. Patient started on heparin drip.
Medical History
Past Medical History
Past Medical History: Reports Arrhythmia (Paroxysmal atrial fibrillation) and HTN
Past Surgical History: Reports None
Social History
Tobacco: Non-smoker
Alcohol: Occasional
Drug: None
Personal:
Living: With Family
Employment: Employed
Family History
Family History: Not pertinent
Allergies / Home Medications
Allergies reflects when Allergies were last updated in [facility].
Home Medications with original date entered in [facility]
Allergy/Medication List:
Allergies
Allergy/AdvReac Type Severity Reaction Status Date / Time
No Known Allergies Allergy Verified 11/28/23 03:21
Home Medications
aspirin 81 mg tablet,delayed release 81 mg PO DAILY Blood clot prevention/tx 06/05/15
amlodipine 5 mg tablet 5 mg PO DAILY Blood pressure 08/27/17
atorvastatin 80 mg tablet 80 mg PO DAILY High cholesterol 05/11/20
ezetimibe 10 mg tablet 10 mg PO DAILY High cholesterol 05/11/20
lisinopril 40 mg tablet 40 mg PO DAILY Blood Pressure 06/04/23
rivaroxaban 20 mg tablet (Xarelto) 20 mg PO QPM Blood Clot Prevention/AFib 06/04/23
amiodarone 200 mg tablet (Pacerone) 100 mg PO DAILY Arrhythmia 06/05/23
clonazepam 1 mg tablet 1 mg PO HS PRN sleep 06/05/23
metoprolol succinate 100 mg tablet,extended release 24 hr 100 mg PO BID Blood Pressure 06/05/23
amoxicillin 875 mg-potassium clavulanate 125 mg tablet 1 tab PO BID #10 tabs 06/06/23
ferrous sulfate 325 mg (65 mg iron) tablet 325 mg PO DAILY #30 tabs 06/06/23
metoprolol succinate 100 mg tablet,extended release 24 hr 100 mg PO BID #60 tabs 06/06/23
Review of Systems
-
History Source: Patient
Constitutional: Reports No Symptoms
EENT: Reports No Symptoms
Respiratory: Reports No Symptoms
Cardiac: Reports Palpitations
Abdomen/GI: Reports No Symptoms
: Reports No Symptoms
Musculoskeletal: Reports No Symptoms
Skin: Reports No Symptoms
Neurological: Reports No Symptoms
Endocrine: Reports No Symptoms
Hematologic/Lymphatic: Reports No Symptoms
Psych: Reports No Symptoms
Physical Exam
Vital Signs
Vital Signs
Temp Pulse Resp BP Pulse Ox
98.3 F 126 16 109/90 97
11/28/23 03:21 11/28/23 05:15 11/28/23 05:15 11/28/23 05:15 11/28/23 05:15
Physical Exam
General: No Apparent Distress
HEENT: NormoCephalic, Anicteric, Moist mucous membranes and Atraumatic
Respiratory: Clear
Cardiac: S1/S2, Irregular Rhythm and Tachycardia
Breast: Deferred by me
GI: Soft, Non Tender, Normal Bowel Sounds and Distended
Rectal: Deferred by Provider
Genito-urinary: Deferred by me
Musculoskeletal: No Clubbing, No Cyanosis and No Edema
Skin: Warm
Neuro: AO x 3
Hematologic/Lymphatic: No Lymphadenopathy
Psych: Calm
Laboratory Results
-
11/28/23 04:00
11/28/23 04:00
Laboratory Results
PT 13.1 Sec (11.4-14.6) 11/28/23 04:00
INR 0.99 11/28/23 04:00
Total Bilirubin 0.4 mg/dl (0.2-1.3) 11/28/23 04:00
AST 22 U/L (17-59) 11/28/23 04:00
ALT 37 U/L (0-50) 11/28/23 04:00
Alkaline Phosphatase 79 U/L (38-126) 11/28/23 04:00
Troponin I < 0.012 ng/ml 11/28/23 04:00
Impression/Plan
-
IMPRESSION:
PLAN:
1. AFIB RVR - Recurrent paroxysmal atrial fibrillation, patient non-complaint with amio and Xarelto with last dose 1 month ago. Symptomatic AFIB started overnight (< 48 hrs).
- admit to telemetry
- npo for now
- start AC with xarelto
- continue dilt gtt, however patient reports ineffective in the past and likely will need cardioversion if negative CLEVE
- continue metoprolol bid
- continue amio 100 daily
- holding lisinopril and amlodipine
- echo , check tsh
- keep K, Mag > 4,2
- cardiology consult
2. HTN - SBP around 100 on dilt gtt.
- holding lisinopril and amlodipine
-
3. H pylori - No acute symptoms, CBC WNL
- ppi ppx with famotidine
DVT PPX - on AC
Code Status full
--- NOTE | 2023-11-28 08:16 | W.PN.HOSP.TC ---
Today's Communication/Plan
-
Successful cardioversion
Continue Sotalol, Xarelto/Eliquis
Assessment / Plan
Assessment / Plan
Physical Exam
General: No Apparent Distress
HEENT: NormoCephalic, Anicteric, Moist mucous membranes and Atraumatic
Respiratory: Clear
Cardiac: S1/S2, RRR
GI: Soft, Non Tender, Normal Bowel Sounds and Obese
Musculoskeletal: No Cyanosis and No Edema
Skin: Warm
Neuro: AO x 3
Psych: Calm
Assessment/Plan
troy Li - 63 y/o male who usually follows with Dr Fitzpatrick. Hx PAF but stopped his xarelto and amiodarone this past month due to financial reasons. Placed on cardizem drip on admission. NPO. Echo. Cardiology consult as patient may need CLEVE for
cardioversion. Held home lisinopril/amlodipine for borderline blood pressure on cardizem.
1. AFIB RVR - Recurrent paroxysmal atrial fibrillation, patient non-complaint with amio and Xarelto with last dose 1 month ago. Symptomatic AFIB started overnight (< 48 hrs).
- Status post cardioversion on November 28, 2023
- Admit to telemetry
- Starting sotalol 120mg BID. follow QTc
- Transition Xarelto to Eliquis tomorrow
- continue metoprolol bid - but decrease toprol to 50mg BID with addition of sotalol
- holding lisinopril and amlodipine
- echo , check tsh
- keep K, Mag > 4,2
- cardiology consult
2. HTN - SBP around 100 on dilt gtt.
- holding lisinopril and amlodipine
-
3. H pylori - No acute symptoms, CBC WNL
- ppi ppx with famotidine
DVT PPX - on AC
Code Status full
Anticipated Discharge: 24 - 48 hours
Subjective/Interval History
-
Date of Service: November 28, 2023
Patient was seen and examined. He denied any symptoms.
Objective Data
-
Labs:
Laboratory Results
11/28/23 11/28/23
03:27 04:00
WBC 5.4
Hgb 17.1
Hct 48.8
Plt Count 201
PT Cancelled 13.1
INR Cancelled 0.99
Sodium 142
Potassium 4.0
Chloride 109 H
Carbon Dioxide 15 L
BUN 17
Creatinine 0.9
Glucose 105 H
Calcium 9.6
Total Bilirubin 0.4
AST 22
ALT 37
Alkaline Phosphatase 79
Vital Signs:
Vital Signs
Temp Pulse Resp BP Pulse Ox
98.5 F 118 20 124/82 97
11/28/23 07:08 11/28/23 06:00 11/28/23 07:08 11/28/23 06:00 11/28/23 06:00
--- NOTE | 2023-11-28 08:24 | CON.CAR ---
Addendum entered and electronically signed by Zee Alvarez DO 11/28/23 09:24:
I saw and examined the patient.
The Carton Stenciler's note was reviewed and I agree with the note.
Comment: Patient was seen and examined with cardiac PA. Thai is a 63-year-old male with past medical history of CAD status post multiple stents, recovered ischemic cardiomyopathy, paroxysmal atrial fibrillation. He is followed routinely in the
office with my colleague, Dr. Fitzpatrick. He has been maintaining sinus rhythm on amiodarone and has been anticoagulated previously with Xarelto. 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 He states that he stopped his amiodarone several months ago after he read the side effects and stopped this medication. Then he had an insurance change after he retired in August and was not able to afford
Xarelto. He has no history of stroke/TIA. He had a recent Stress test and echocardiogram which was reviewed. Stress test October 02, 2023 shows a small area of fixed perfusion in the apical anterior segment consistent with infarct without residual
ischemia and an EF of 56%. An echocardiogram June 05, 2023 showed normal LV chamber size and overall normal LV systolic function estimated 50-55% with no significant valvular heart disease. He denies history of sleep apnea but it is unclear if he
has ever had a study. He denies recent URI/COVID. He denies chest pain or pressure, bleeding or lower extremity edema. He reports this morning around 1 AM he woke up from sleep with a feeling of his heart racing and pulsatile tinnitus, and was in
atrial fibrillation with RVR upon arrival to the emergency room. He was started on IV Cardizem drip and cardiology consulted for evaluation.
General: No acute distress, AAOX3
Neck: Negative JVD
Heart: Irregularly irregular, tachycardic. Positive S1-S2. No murmurs.
Lungs: CTA b/l, negative wheezes/rales/rhonchi
Abd: Positive BS, NT/ND, neg rebound/rigidity/guarding
Ext: no edema
Neuro: nonfocal
Plan:
Plan:
-Symptomatic recurrent rapid atrial fibrillation with history of PAF previously on amiodarone and Xarelto
-Xarelto 20 mg to be given now and will ask case management to assess because given change of insurance. Apparently he may not have part B of Medicare
-Continue IV Cardizem drip with plan for transition to oral medications following cardioversion
-CLEVE cardioversion today�no absolute contraindications and patient is agreeable
-He has not had amiodarone in over a month. Will plan to transition to sotalol 120 mg twice daily if cost is acceptable�awaiting case management inquiry
-If able to initiate sotalol will continue telemetry monitoring in hospital for 5 doses as per protocol
-Will need to reduce outpatient Toprol-XL with initiation of sotalol
-Consider outpatient EP evaluation for possible ablation
-check TSH
-No evidence of heart failure�CXR pending. proBNP 135
-No symptoms of angina with recent reassuring Lexiscan nuclear stress test
-Suspect sleep apnea and have advised outpatient testing
Original Note:
Consultation
Consultation Request
Date/Time Consultation Performed: 11/28/23
Requesting Provider: Dr. Dye
Performing Provider: Sowmya Lai PA-C for Dr. Alvarez
Reason for Consultation: afib
Medical History
-
Chief Complaint: afib
History of Present Illness:
Patient is a 63-year-old male with past medical history of CAD status post multiple stents, recovered ischemic cardiomyopathy, paroxysmal atrial fibrillation. At last office visit 08/22/2023 his amiodarone dose was decreased from 200 mg daily to 100
mg daily as he had had a 2-week [employer] monitor without evidence of atrial fibrillation. He states he had retired in August, and had expected his for Social Security check the end of September, however did not come till the end of October and therefore
he has not been able to fill his amiodarone or Xarelto in the last month. He reports this morning around 1 AM he woke up from sleep with a feeling of his heart racing and pulsatile tinnitus, and was in atrial fibrillation with RVR upon arrival to
the emergency room. He was started on IV Cardizem drip and cardiology consulted for evaluation. He denies chest discomfort, lower extremity edema, abdominal bloating, orthopnea. Denies recent changes to caffeine, alcohol, supplement use.
PMH:
Paroxysmal atrial fibrillation
Chronic OAC with xarelto
History of CAD/IN with multiple PCIs:
LAD August 2017
LCX/mid LAD April 2017
Diagonal February 2017
Mid RCA August 2008
Recovered ischemic cardiomyopathy with last EF 50-55% 05/2023
Hyperlipidemia
History of recurrent pancreatitis
Hypertension
Obesity
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
History of right lower leg fracture
Prior noncompliance due to insurance issues
Past Medical History
Past Medical History: Other (in HPI)
Social History
Tobacco: Non-Smoker
Living: With Family
Employment: Retired
Family History
Family History: CAD
Allergies / Home Medications
Allergy/AdvReac Type Severity Reaction Status Date / Time
No Known Allergies Allergy Verified 11/28/23 03:21
�Medication �Instructions �Recorded �Confirmed �Type
aspirin 81 mg tablet,delayed 81 mg PO DAILY Blood clot 06/05/15 06/05/23 History
release prevention/tx
amlodipine 5 mg tablet 5 mg PO DAILY Blood pressure 08/27/17 06/05/23 History
atorvastatin 80 mg tablet 80 mg PO DAILY High cholesterol 05/11/20 06/05/23 History
ezetimibe 10 mg tablet 10 mg PO DAILY High cholesterol 05/11/20 06/05/23 History
lisinopril 40 mg tablet 40 mg PO DAILY Blood Pressure 06/04/23 06/05/23 History
rivaroxaban 20 mg tablet (Xarelto) 20 mg PO QPM Blood Clot 06/04/23 06/05/23 History
Prevention/AFib
amiodarone 200 mg tablet (Pacerone) 100 mg PO DAILY Arrhythmia 06/05/23 06/05/23 History
clonazepam 1 mg tablet 1 mg PO HS PRN sleep 06/05/23 06/05/23 History
metoprolol succinate 100 mg 100 mg PO BID Blood Pressure 06/05/23 06/05/23 History
tablet,extended release 24 hr
amoxicillin 875 mg-potassium 1 tab PO BID #10 tabs 06/06/23 Rx
clavulanate 125 mg tablet
ferrous sulfate 325 mg (65 mg 325 mg PO DAILY #30 tabs 06/06/23 Rx
iron) tablet
metoprolol succinate 100 mg 100 mg PO BID #60 tabs 06/06/23 Rx
tablet,extended release 24 hr
Review of Systems
-
History Source: Patient
All other systems: Negative unless noted
Physical Exam
Vital Signs
Temp Pulse Resp BP Pulse Ox
98.5 F 118 20 124/82 97
11/28/23 07:08 11/28/23 06:00 11/28/23 07:08 11/28/23 06:00 11/28/23 06:00
Lab Results
11/28/23 04:00
11/28/23 04:00
Troponin I < 0.012 ng/ml 11/28/23 04:00
Pxn-[id number]-[id number] Pept 135 pg/ml 11/28/23 04:00
Physical Exam
General: No Apparent Distress, Comfortable and Other (obese)
HEENT: Normocephalic, Anicteric and Moist Mucous Membranes
Respiratory: Clear and Non Labored Respirations
Cardiac: S1/S2 and Irregular Rhythm
GI: Soft, Non Tender, Non Distended and Normal Bowel Sounds
Musculoskeletal: No Clubbing, No Cyanosis and Edema (trace of B/L LE)
Skin: Warm and Dry
Neuro: AO x 3
Impression / Plan
-
Primary Crust Sorter: Dr. Amari
Assessment:
Paroxysmal atrial fibrillation, now with RVR
Chronic OAC with xarelto
History of CAD/IN with multiple PCIs:
LAD August 2017
LCX/mid LAD April 2017
Diagonal February 2017
Mid RCA August 2008
Recovered ischemic cardiomyopathy with last EF 50-55% 05/2023
Hyperlipidemia
History of recurrent pancreatitis
Hypertension
Obesity
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
History of right lower leg fracture
Prior noncompliance due to insurance issues
ECHO 06/05/2023: Definity used, EF 50 to 55%, mild mid to distal apical septal hypokinesis, no significant valve disease, mildly dilated aortic root and ascending aorta
Lexiscan nuclear stress test 10/02/2023: Fixed defect in apical anterior segment consistent with infarction, EF 56%
Plan:
-Patient presents with recurrence of atrial fibrillation in the setting of noncompliance with amiodarone and Xarelto for 1 month
-remains in rapid afib on IV cardizem gtt @15. continue po toprol
-NPO for CLEVE/CV today
-we discussed ideally transitioning to alternative AAD due to young age as long as not cost prohibitive. CM to look into cost of sotalol and would consider loading post CLEVE/CV today. will review with EP
-will give dose of xarelto now
-check TSH
-CXR pending. proBNP 135
-recent echo and stress test with results as above
-expressed importance of compliance
-d/w nursing
Data Reviewed
-
EKG: Tracing Personally Visualized and interpreted
Medical Tests (Nuc Med, Echo etc): Report Reviewed by me
Labs: Labs Reviewed by me
Old Records: Reviewed
[2023-11-28] MEDS: LIPITOR 80 MG PO (08:53)
[2023-11-28] MEDS: TOPROL XL 150 MG PO (08:53)
[2023-11-28] MEDS: XARELTO 20 MG PO (09:08)
--- NOTE | 2023-11-28 09:10 | PTCARENOTE ---
pt afib on the monitor, hr in the 140s-150s, vss. pt c/o of being 'slightly dizzy.' pt resting in bed comfortably. pt educated on plan of care and verbalized understanding. call lares within reach.
pt off unit for procedure.
--- NOTE | 2023-11-28 12:01 | W.PN.UPDATE ---
Update Note
Progress Note Update
CLEVE/CV successful. starting sotalol 120mg BID. follow QTc. will decrease toprol to 50mg BID with addition of sotalol. after discussion with CM, will transition xarelto to eliquis as will be more affordable to patient. as received xarelto this
morning, will start eliquis tomorrow morning.
[2023-11-28] MEDS: BETAPACE 120 MG PO ×2 (12:06→21:50)
--- NOTE | 2023-11-28 12:07 | CM ---
Pricing on Sotalol, patient does not have a current prescription plan. He is working on getting one, but does not have one yet. I priced the medication through [facility] and it will cost $14. Patient qualifies for the patient assistance program
for [employer] based on his gross income. I gave the patient the application to fill out. I will place a free 30 day coupon in the patient's red discharge folder.
[2023-11-28 15:06] LABS: TSH Reflex To Free T4 0.27 uIU/ml (0.47-4.68)
--- NOTE | 2023-11-28 15:35 | CM ---
Chart reviewed. Patient is independent of ADLS, lives in a apartment on the 3rd floor, 3 full flight of stairs, 0 DME. Plan is for the patient to return home. CM to follow
[2023-11-28 15:37] LABS: Free T4 2.02 ng/dl (0.78-2.19)
--- NOTE | 2023-11-28 17:29 | PTCARENOTE ---
pt in sr, hr in the 60s, vss. pt offers no complaints at this time. pt has been ambulating and tolerating well. pt educated on plan of care and personalized understanding. call lares within reach.
[2023-11-28] MEDS: TOPROL XL 50 MG PO (20:04)
--- NOTE | 2023-11-28 22:12 | PTCARENOTE ---
Received patient at change of shift. SR on the monitor, HR in the 60s. Pt takes clonazepam at home and requested to be placed on his MAR. House [employer] OPERATOR notified, order written. Discussed plan of care with pt, pt verbalizes understanding. Call lares within
reach.
[2023-11-28] MEDS: KLONOPIN 1 MG PO (23:58)
[2023-11-29 04:51] VITALS: BP 126/85
[2023-11-29 05:35] LABS: Hematocrit 45.3 % (39.0-52.0); Hemoglobin 15.5 g/dL (13.0-18.0); Mean Corp Hgb Conc. 34.2 g/dL (33.0-37.0); Mean Corpuscular Hgb 29.8 pg (27.0-31.0); Mean Corpuscular Volume 86.9 fL (80.0-94.0); Mean Platelet Volume 10.5 fL (7.4-10.4); Platelet Count 182 10^3/uL (130-400); Red Blood Cell Count 5.21 10^6/uL (4.70-6.10); Red Cell Dist. Width 14.2 % (11.5-14.5); White Blood Cell Count 5.4 10^3/uL (4.8-10.8)
[2023-11-29 05:37] LABS: Blood Urea Nitrogen 16 mg/dl (9-20); Carbon Dioxide 24 mmol/L (22-30); Chloride 104 mmol/L (98-107); Estimated Creatinine Clearance > 125 ml/min; Glucose 121 mg/dl (70-99); Magnesium 1.9 mg/dl (1.6-2.3); Sodium 138 mmol/L (135-145); eGFR > 60.00
[2023-11-29 06:08] LABS: TSH 0.21 uIU/ml (0.47-4.68)
--- NOTE | 2023-11-29 06:53 | W.PN.CARDCBS ---
Addendum entered and electronically signed by Maged Benson MD 11/29/23 09:12:
Patient seen and examined
Agree with SHELBI Grant's note and assessment
Agree with SHELBI Grant's plan
ECGs reviewed with stable QTc less than 500 ms
No ventricular arrhythmias on telemetry with sinus bradycardia on telemetry
�
����Physical Exam
�
���������������������General:��no apparent distress, not acutely ill
�
���������������������������Neck:��supple. no meningeal signs. normal psoterior pharynx
������������������������
���������������������������Heart:��s1/s2 regular rate and rhythm, no murmur. equal radial pulses.
�
��������������������������Lungs: ��no acute respiratory distress. clear bilaterally
�
����������������������Abdomen:�normal bowel sounds. not tender. no CVAT
�
��������������������������Neuro:��alert and oriented. no focal neurological deficits
�
������������������������������Skin: ��no rash
�
�����������������������Psychiatric:�well kept. interactive and cooperative
�
�����������������������Extremities:��no edema. no calf tenderness. negative homans. good distal pulses
�
�
�
��
�
Primary Manager Architectural: Dr. Fitzpatrick
Assessment:
Paroxysmal atrial fibrillation, now with RVR
Chronic OAC with xarelto
History of CAD/[place] with multiple PCIs:
LAD August 2017
LCX/mid LAD April 2017
Diagonal February 2017
Mid RCA August 2008
Recovered ischemic cardiomyopathy with last EF 50-55% 05/2023
Hyperlipidemia
History of recurrent pancreatitis
Hypertension
Obesity
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
History of right lower leg fracture
Prior noncompliance due to insurance issues
ECHO 06/05/2023: Definity used, EF 50 to 55%, mild mid to distal apical septal hypokinesis, no significant valve disease, mildly dilated aortic root and ascending aorta
Lexiscan nuclear stress test 10/02/2023: Fixed defect in apical anterior segment consistent with infarction, EF 56%
Plan:
-Remains in SR after CLEVE/CV 11/28/23
-2nd dose of sotalol 120 mg BID given 11/28/23 PM and QTc on ECG 2 hours later was 481. 3rd dose of Sotalol scheduled for Friday morning, await ECG.
-5th dose of sotalol scheduled for Friday morning and if QTc stable then patient can likely be d/c'd to home.
-Patient was not taking meds for about 1 month prior to admission due to lack of prescription plan and he did not have his social security check on time. Outpatient dose of Xarelto changed to Eliquis and patient qualifies for the patient
prescription plan, also patient can use the 30 day free sample card. E-scribed Rx for Eliquis 5 mg BID (age 63, wt 129 kg) to patient's local pharmacy. eCW task sent to OAC clinic at to coordinate PPA paperwork
-TSH low, but free T4 normal
-No evidence of HF on CXR. pro-BNP 135
-If he has breakthrough arrhythmia on sotalol it would be reasonable to consider AF ablation. I did have a discussion with patient in broad strokes regarding risks benefits and treatment alternatives for his atrial fibrillation as well as a
description of the ablation procedure itself including risks and chances of success. He will follow-up with Dr. Fitzpatrick as an outpatient.
-Dose 3�4 today of sotalol
Original Note:
Today's Communication / Plan
-
QTc 481 ms after 2nd dose of sotalol last night
5th dose scheduled for Friday morning and if stable can be d/c'd
Changed from Xarelto to Eliquis and he can use patient prescription assistance plus 30 day free coupon card
51 minutes in face to face, coordination of care and chart prep
Impression / Plan
-
Primary Manager Architectural: Dr. Fitzpatrick
Assessment:
Paroxysmal atrial fibrillation, now with RVR
Chronic OAC with xarelto
History of CAD/[place] with multiple PCIs:
LAD August 2017
LCX/mid LAD April 2017
Diagonal February 2017
Mid RCA August 2008
Recovered ischemic cardiomyopathy with last EF 50-55% 05/2023
Hyperlipidemia
History of recurrent pancreatitis
Hypertension
Obesity
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
History of right lower leg fracture
Prior noncompliance due to insurance issues
ECHO 06/05/2023: Definity used, EF 50 to 55%, mild mid to distal apical septal hypokinesis, no significant valve disease, mildly dilated aortic root and ascending aorta
Lexiscan nuclear stress test 10/02/2023: Fixed defect in apical anterior segment consistent with infarction, EF 56%
Plan:
-Remains in SR after CLEVE/CV 11/28/23
-2nd dose of sotalol 120 mg BID given 11/28/23 PM and QTc on ECG 2 hours later was 481. 3rd dose of Sotalol scheduled for Friday morning, await ECG.
-5th dose of sotalol scheduled for Friday morning and if QTc stable then patient can likely be d/c'd to home.
-Patient was not taking meds for about 1 month prior to admission due to lack of prescription plan and he did not have his social security check on time. Outpatient dose of Xarelto changed to Eliquis and patient qualifies for the patient
prescription plan, also patient can use the 30 day free sample card. E-scribed Rx for Eliquis 5 mg BID (age 63, wt 129 kg) to patient's local pharmacy. eCW task sent to OAC clinic at to coordinate PPA paperwork
-TSH low, but free T4 normal
-No evidence of HF on CXR. pro-BNP 135
HPI: Patient is a 63-year-old male with past medical history of CAD status post multiple stents, recovered ischemic cardiomyopathy, paroxysmal atrial fibrillation. At last office visit 08/22/2023 his amiodarone dose was decreased from 200 mg daily to
100 mg daily as he had had a 2-week Bardy monitor without evidence of atrial fibrillation. He states he had retired in August, and had expected his for Social Security check the end of September, however did not come till the end of October and
therefore he has not been able to fill his amiodarone or Xarelto in the last month. He reports this morning around 1 AM he woke up from sleep with a feeling of his heart racing and pulsatile tinnitus, and was in atrial fibrillation with RVR upon
arrival to the emergency room. He was started on IV Cardizem drip and cardiology consulted for evaluation. He denies chest discomfort, lower extremity edema, abdominal bloating, orthopnea. Denies recent changes to caffeine, alcohol, supplement
use.
Progress Note - Manager Architectural
Subjective
Date of Service: November 29, 2023
He feels well, no palpitations
Objective
Labs:
11/29/23 05:03
11/29/23 05:03
Labs
Hgb 15.5 g/dL (13.0-18.0) 11/29/23 05:03
Hct 45.3 % (39.0-52.0) 11/29/23 05:03
Plt Count 182 10^3/uL (130-400) 11/29/23 05:03
PT 13.1 Sec (11.4-14.6) 11/28/23 04:00
INR 0.99 11/28/23 04:00
Sodium 138 mmol/L (135-145) 11/29/23 05:03
Potassium 4.0 mmol/L (3.5-5.1) 11/29/23 05:03
BUN 16 mg/dl (9-20) 11/29/23 05:03
Creatinine 0.8 mg/dL (0.7-1.3) 11/29/23 05:03
Glucose 121 mg/dl (70-99) H 11/29/23 05:03
Troponins
11/28/23
04:00
Troponin I < 0.012
Vital Signs and I&O:
Vital Signs
Temp Pulse Resp BP Pulse Ox
97.9 F 55 18 126/85 98
11/29/23 04:50 11/29/23 05:00 11/29/23 04:50 11/29/23 04:51 11/29/23 04:50
Vital Signs
Temp Pulse Resp BP Pulse Ox
97.9 F 55 18 126/85 98
11/29/23 04:50 11/29/23 05:00 11/29/23 04:50 11/29/23 04:51 11/29/23 04:50
Intake & Output
11/26/23 11/27/23 11/28/23 11/29/23
06:59 06:59 06:59 06:59
Output Total 250 / 250
Balance -250 / -250
Physical Exam
Physical Exam
GEN: AAOx3
HEENT: mmm
LUNGS: No audible wheeze
CV: SR on tele
ABD: ND
EXT: No edema
NEURO: Gross non-focal
SKIN: No rash
[2023-11-29 08:04] VITALS: BP 141/95
[2023-11-29] MEDS: ELIQUIS 5 MG PO ×2 (08:33→19:59)
[2023-11-29] MEDS: LIPITOR 80 MG PO (08:33)
[2023-11-29] MEDS: BETAPACE 120 MG PO ×2 (08:34→20:03)
[2023-11-29] MEDS: TOPROL XL 50 MG PO ×2 (08:34→19:59)
--- NOTE | 2023-11-29 11:30 | PTCARENOTE ---
Assumed care of pt from night RN. Pt received awake and alert, Ox3. VSS, CM shows SB 50-60, POX 99% on RA. QTc after 3d dose of Sotalol is 443. Pt denies any pain or discomfort at this time. Will continue to monitor closely.
[2023-11-29 12:43] VITALS: BP 132/84
--- NOTE | 2023-11-29 14:13 | W.PN.HOSP.TC ---
Today's Communication/Plan
-
Continue Sotalol
Appreciate ENT seeing patient tomorrow
Assessment / Plan
Assessment / Plan
Physical Exam
General: No Apparent Distress
HEENT: Normocephalic
Respiratory: Clear
Cardiac: S1/S2, RRR
GI: Soft, Non Tender, Normal Bowel Sounds and Obese
Musculoskeletal: No Cyanosis and No Edema
Skin: Warm
Neuro: AO x 3
Psych: Calm
Assessment/Plan
63 y/o male who usually follows with Dr. Fitzpatrick. Hx PAF but stopped his xarelto and amiodarone this past month due to financial reasons. Placed on cardizem drip on admission. NPO. Echo. Cardiology consult as patient may need CLEVE for cardioversion.
Held home lisinopril/amlodipine for borderline blood pressure on cardizem.
#AFIB RVR - Recurrent paroxysmal atrial fibrillation, patient non-complaint with amio and Xarelto with last dose 1 month ago. Symptomatic AFIB started overnight (< 48 hrs).
- Status post cardioversion on November 28, 2023
- Started sotalol 120mg BID. follow QTc -- 5th dose of sotalol scheduled for 11/29/23 morning and if QTc stable then patient can likely be d/c'd to home.
- Transition Xarelto to Eliquis tomorrow
- continue metoprolol bid - but decrease toprol to 50mg BID with addition of sotalol
- holding lisinopril and amlodipine
- echo , check tsh
- keep K, Mag > 4,2
- cardiology consult
#HTN - SBP around [address]
- holding lisinopril and amlodipine
#H. pylori - No acute symptoms, CBC WNL
- ppi ppx with famotidine
#Pain/tenderness under lower jaw and upper neck
-Consulted ENT, appreciate evaluation and recommendations
DVT Prophylaxis - on Eliquis
Code Status full
Anticipated Discharge: 24 - 48 hours
Subjective/Interval History
-
Date of Service: November 29, 2023
Patient was seen and examined. He reported pain under his jaw and his top neck, especially to the touch, he said he also has been feeling 'hot' at times.
Objective Data
-
Labs:
Laboratory Results
11/29/23
05:03
WBC 5.4
Hgb 15.5
Hct 45.3
Plt Count 182
Sodium 138
Potassium 4.0
Chloride 104
Carbon Dioxide 24
BUN 16
Creatinine 0.8
Glucose 121 H
Calcium 9.0
Vital Signs:
Vital Signs
Temp Pulse Resp BP Pulse Ox
98.2 F 60 16 132/84 100
11/29/23 13:12 11/29/23 13:12 11/29/23 13:12 11/29/23 12:43 11/29/23 13:12
I&O
11/28/23 11/29/23 11/30/23
06:59 06:59 06:59
Output Total 250 / 250
Balance -250 / -250
[2023-11-29 15:44] VITALS: BP 132/85
[2023-11-29 18:32] VITALS: BP 143/86
[2023-11-29 22:04] VITALS: BP 136/90
[2023-11-29] MEDS: KLONOPIN 1 MG PO (22:07)
--- NOTE | 2023-11-29 22:43 | PTCARENOTE ---
Pt rec'd at beginning of shift awake,alert. Sinus on telemetry. 4th dose of Sotalol at 8pm given with QTc 2 hrs post 457. Pt at time of shift change stated pain in jaw and neck remains only when physically touching it otherwise he has no pain.
However, At this time pt called nursing to room stating that he feels his throat is swelling on both sides, tender to touch. denies feeling sob or being unable to swallow. House Hydraulic Governor Assembler notified to come evaluate pt.
[2023-11-29] MEDS: TYLENOL 650 MG PO (23:13)
--- NOTE | 2023-11-29 23:18 | PTCARENOTE ---
Pt seen by amy TEA LEAF READER , medicated with Tylenol. Pt continue to deny sob or difficulty swallowing
--- NOTE | 2023-11-30 00:04 | W.PN.UPDATE ---
Update Note
Progress Note Update
Starting today, pt complaining about neck pain (only to touch) and feels like its getting more swollen. ENT consulted today but they have not seen yet.
On eval, pt states pain started earlier today. Denies any respiratory complaints. Denies swallowing issues. Maintaining airway. PT states pain is right below jawline bilaterally and only painful to palpation. Neck supple. Able to move without pain.
No redness noted. On palpation, submandibular lymph nodes with tenderness and edema. Pt denies any URI symptoms or fever.
Will closely monitor. ENT consult pending. Can try cold or warm compress to area. Tylenol prn. Advised him to let nurse know if any trouble swallowing, or breathing.
[2023-11-30 04:09] VITALS: BP 129/81
[2023-11-30 04:14] VITALS: BMI 37.6
[2023-11-30 04:44] LABS: % Basophils 0.6 % (0-2); % Eosinophils 1.5 % (0-6); % Immature Granulocytes 0.2 % (0-0.5); % Lymphocytes 17.2 % (20.5-51.1); % Monocytes 13.8 % (1.7-9.3); % Neutrophils 66.7 % (42.2-75.2); Absolute Eosinophils 0.1 10^3/uL (0-0.7); Absolute Lymphocytes 0.9 10^3/uL (1.2-3.4); Absolute Monocytes 0.7 10^3/uL (0.1-0.6); Absolute Neutrophils 3.5 10^3/uL (1.4-6.5); Hematocrit 44.7 % (39.0-52.0); Hemoglobin 15.6 g/dL (13.0-18.0); Mean Corp Hgb Conc. 34.9 g/dL (33.0-37.0); Mean Corpuscular Hgb 30.2 pg (27.0-31.0); Mean Corpuscular Volume 86.6 fL (80.0-94.0); Mean Platelet Volume 10.6 fL (7.4-10.4); Nucleated Red Blood Cells % 0 % (-); Platelet Count 174 10^3/uL (130-400); Red Blood Cell Count 5.16 10^6/uL (4.70-6.10); Red Cell Dist. Width 13.9 % (11.5-14.5); White Blood Cell Count 5.3 10^3/uL (4.8-10.8)
[2023-11-30 05:07] LABS: Blood Urea Nitrogen 17 mg/dl (9-20); Calcium 8.9 mg/dl (8.4-10.2); Carbon Dioxide 22 mmol/L (22-30); Chloride 104 mmol/L (98-107); Estimated Creatinine Clearance 115 ml/min; Glucose 124 mg/dl (70-99); Magnesium 2.1 mg/dl (1.6-2.3); Potassium 4.5 mmol/L (3.5-5.1); Sodium 137 mmol/L (135-145); eGFR > 60.00
[2023-11-30 07:14] VITALS: BP 145/94
[2023-11-30] MEDS: BETAPACE 120 MG PO (08:39)
[2023-11-30] MEDS: TOPROL XL 50 MG PO (08:40)
[2023-11-30] MEDS: ELIQUIS 5 MG PO (08:40)
[2023-11-30] MEDS: LIPITOR 80 MG PO (08:40)
--- NOTE | 2023-11-30 09:03 | W.PN.UPDATE ---
Update Note
Progress Note Update
Patient is for dose 5 of sotalol this morning. QTc was 457 ms after dose for last evening and I personally reviewed his ECG. No arrhythmias on telemetry. I discussed with him yesterday options for atrial fibrillation and long-term with
recurrence. Awaiting fifth dose of sotalol and ECG. If his QTc is stable and less than 500 ms I have no objection to discharge from a cardiovascular perspective on Eliquis 5 mg p.o. twice daily and his sotalol.
--- NOTE | 2023-11-30 10:09 | PTCARENOTE ---
Assumed care of pt from night RN. Pt received awake and alert, Ox3. VSS, CM shows NSR 50-60's, dose #5 of Sotalol given. Pt c/o neck swelling and tenderness of jaw to touch. Awaiting ENT CX. Will monitor closely.
[2023-11-30 11:30] VITALS: BP 143/83
--- NOTE | 2023-11-30 11:37 | CON.MD ---
Consultation - Medical
-
Pt seen and consult dictated.
Asked to see pt for mild bilateral pain near the angles of the mandible, only present when he presses there.
Pain is likely musculoskeletal and would treat conservatively as an outpt with heat.
If symptoms worsen or new ones develop we would see him as an outpatient.
--- NOTE | 2023-11-30 13:09 | W.PN.HOSP.TC ---
Today's Communication/Plan
-
Discharge today
Assessment / Plan
Assessment / Plan
Physical Exam
General: No Apparent Distress
HEENT: Normocephalic
Respiratory: Clear
Cardiac: S1/S2, RRR
GI: Soft, Non Tender, Normal Bowel Sounds and Obese
Musculoskeletal: No Cyanosis and No Edema
Skin: Warm. Dry.
Neuro: AAO x 3
Psych: Calm
Assessment/Plan
63 y/o male who usually follows with Dr. Fitzpatrick. Hx PAF but stopped his xarelto and amiodarone this past month due to financial reasons. Placed on cardizem drip on admission. NPO. Echo. Cardiology consult as patient may need CLEVE for cardioversion.
Held home lisinopril/amlodipine for borderline blood pressure on cardizem.
#AFIB RVR - Recurrent paroxysmal atrial fibrillation, patient non-complaint with amio and Xarelto with last dose 1 month ago. Symptomatic AFIB started overnight (< 48 hrs).
- Status post cardioversion on November 28, 2023
- Started sotalol 120mg BID. follow QTc -- 5th dose of sotalol scheduled for 11/29/23 morning and if QTc stable then patient can likely be d/c'd to home.
- Transitioned Xarelto to Eliquis 5 mg BID
- Discussed with Dr. Benson (bessemer regulator) via [place] [facility] today: patient should get on discharge Sotalol 120 mg tablet Q12H, 60 tablets, with refills
- continue metoprolol bid - but decrease Toprol XL to 50 mg BID with addition of sotalol
- Appreciate cardiology consult evaluation and recommendations
- Okay to continue Aspirin 81 [address] daily [address] per Dr. Benson conversation via [place] [facility] on 11/30/23
#Hypertension
-Initially, this admission lisinopril and amlodipine were both held
-Continue Lisinopril on discharge
-Follow-up with PCP regarding continuation of Amlodipine
#H. pylori
- ppi ppx with famotidine
#Pain/tenderness under lower jaw and upper neck
-Consulted ENT, appreciate evaluation and recommendations: pain is likely musculoskeletal and would treat conservatively as an outpatient with heat
-Can use warm compresses
-Closely follow-up with PCP outpatient
DVT Prophylaxis: Eliquis
Code Status: Full Code
More than 30 minutes spent in discharge including
Final examination of the patient
Summarizing hospital stay
Instructions for continuing care to all relevant caregivers
Preparation of discharge records, prescriptions, and referral forms
Total time spent (in minutes): 39
Anticipated Discharge: Today
Subjective/Interval History
-
Date of Service: November 30, 2023
Patient was seen and examined. He reported some tenderness on the upper front neck, no pain otherwise without touching, denied any chest pain, SOB or any other complaints.
Objective Data
-
Labs:
Laboratory Results
11/30/23
04:13
WBC 5.3
Hgb 15.6
Hct 44.7
Plt Count 174
Sodium 137
Potassium 4.5
Chloride 104
Carbon Dioxide 22
BUN 17
Creatinine 0.9
Glucose 124 H
Calcium 8.9
Vital Signs:
Vital Signs
Temp Pulse Resp BP Pulse Ox
98 F 57 20 143/83 98
11/30/23 11:28 11/30/23 11:45 11/30/23 11:28 11/30/23 11:30 11/30/23 11:28
I&O
11/29/23 11/30/23 12/01/23
06:59 06:59 06:59
Intake Total 240 / 240
Output Total 250 / 250
Balance -250 / -250 240 / 240
--- NOTE | 2023-11-30 15:00 | PTCARENOTE ---
Flu shot administered as per APR. All D/C info reviewed with pt, all questions answered. Pt D/C'd home with son.
[2023-11-30] MEDS: FLUAD (65 yr+) 2024-2025 FORMULA 0.5 ML IM (15:17)
== END 2023-11-30 15:00 | disposition home or self-care (01) | DRG 310 ==
LOC: IVU 06:15
PROVIDERS: Nurse Practitioner Family; Student in an Organized Health Care Education/Training Program; ADMITTING PHYSICIAN Internal Medicine; ATTENDING PHYSICIAN Hospitalist; CONSULT PHYSICIAN Otolaryngology; EMERGENCY PHYSICIAN Student in an Organized Health Care Education/Training Program; FAMILY PHYSICIAN Family Medicine; OTHER PHYSICIAN Internal Medicine Cardiovascular Disease
PROC: B24BZZ4 Ultrasonography of Heart with Aorta, Transesophageal (ICD-10-PCS; 2023-11-28)
PROC: 5A2204Z Restoration of Cardiac Rhythm, Single (ICD-10-PCS; 2023-11-28)
DX: I48.0 Paroxysmal atrial fibrillation (principal); Z79.01 Long term (current) use of anticoagulants; Z91.199 Patient's noncompliance with other medical treatment and regimen due to unspecified reason; I10 Essential (primary) hypertension; E66.9 Obesity, unspecified; Z68.37 Body mass index [BMI] 37.0-37.9, adult
CPT/HCPCS: 71046; 80048; 80053; 83735; 83880; 84439; 84443; 84484; 85025; 85027; 85610; 90662; 92960; 93005; 93312; 93320; 93325; 96365; 96366; 99291; G0008

== ENCOUNTER 2024-02-26 07:17 | Emergency (ER) | payer MEDICARE, SELFPAY ==
[2024-02-26 07:20] VITALS: BP 140/92
[2024-02-26 07:36] VITALS: BMI 37.3
[2024-02-26 07:56] LABS: % Basophils 0.4 % (0-2); % Eosinophils 0.7 % (0-6); % Immature Granulocytes 0.4 % (0-0.5); % Monocytes 13.6 % (1.7-9.3); % Neutrophils 71.9 % (42.2-75.2); Absolute Lymphocytes 0.7 10^3/uL (1.2-3.4); Absolute Monocytes 0.8 10^3/uL (0.1-0.6); Hematocrit 49.5 % (39.0-52.0); Hemoglobin 17.3 g/dL (13.0-18.0); Mean Corp Hgb Conc. 34.9 g/dL (33.0-37.0); Mean Corpuscular Hgb 31.7 pg (27.0-31.0); Mean Corpuscular Volume 90.7 fL (80.0-94.0); Mean Platelet Volume 9.9 fL (7.4-10.4); Nucleated Red Blood Cells % 0 % (-); Platelet Count 154 10^3/uL (130-400); Red Blood Cell Count 5.46 10^6/uL (4.70-6.10); White Blood Cell Count 5.5 10^3/uL (4.8-10.8)
[2024-02-26 08:00] VITALS: BP 133/76
--- NOTE | 2024-02-26 08:01 | ED.GENMED ---
History of Present Illness
General
Chief Complaint: Heart Rate Problem
Source: patient
Exam Limitations: none
Time Seen by Provider: 02/26/24 07:23
History of Present Illness
History of Present Illness:
63-year-old male URI symptoms for a week. These are improving somewhat. Cough congestion wheezing. This morning woke at 5 AM with a feeling of atrial fibrillation. Sensation is of a irregular heart racing. No chest pain no shortness of breath
no syncope no other complaints. History of A-fib. On sotalol. Compliant with his sotalol but not compliant with his DOAC secondary to cost issues
Past History
Past History
ED Past Medical History: Arrthythmia (Atrial fibrillation), CAD, HTN, Hypercholesterolemia, [place] (X 2) and Other (Back pain, Numbness in arms and legs)
ED Past Surgical History: Cardiac (Multiple stents) and Orthopedic (right knee surgery, Ulnar nerve removed Left elbow)
Social History
Tobacco: Non-smoker
Alcohol: Occasional
Drug: None
Personal:
Living: with family
Employment: Employed
Family History
Family History: Other (Mother with leukemia)
Review of Systems
Review of Systems
All Other Systems: Not applicable
Constitutional: Denies fever
Respiratory: Reports cough; Denies hemoptysis
Cardiac: Denies chest pain or syncope
Phy Exam
Physical Exam
Physical Exam:
GENERAL: Alert and oriented in no apparent distress
EYE: Orbits normal.
NECK: Supple
CARDIAC: Irregular irregular. Tachycardic
LUNGS: Occasional coarse cough. Expiratory wheeze and rhonchi. No rales
ABDOMEN: Soft, without focal tenderness or distention
NEUROLOGICAL: Alert and oriented , grossly non-focal
SKIN: Warm and dry, no rash or lesion, no discoloration, skin intact.
MUSCULOSKELETAL: No edema,no deformity.Good color
PSYCH: Normal and appropriate interaction.
Course
Orders/Labs/Results
Orders:
Orders
02/26/24 07:22
Electrocardiogram (*1) Urgent
Reason for Study: Atrial Fibrillation
EKG- Treatment ONCE
02/26/24 07:39
Cardiac Monitoring- Treatment ONCE
IV Insert/Care/Rem.- Treatment PRN
CR Chest - 2 Views Urgent
Comment:
Reason For Exam: Cough/wheezing/A-fib
Pulse Ox/cont/shift [RESP] Stat
Quantity: 1
02/26/24 07:47
Basic Metabolic Panel Urgent
COVID-19 Antigen Urgent
Source: Nasal Swab
Complete Blood Count/With Diff Urgent
Influenza A+B Rapid Molecular Urgent
LAINNA Source: Nasal Swab
Specimen Description:
Abnormal Lab Results
02/26/24
07:47
MCH 31.7 H pg
(27.0-31.0)
Absolute Lymphs (auto) 0.7 L 10^3/uL
(1.2-3.4)
Absolute Monos (auto) 0.8 H 10^3/uL
(0.1-0.6)
Lymphocytes % 13.0 L %
(20.5-51.1)
Monocytes % 13.6 H %
(1.7-9.3)
Glucose 110 H mg/dl
(70-99)
02/26/24 07:47
02/26/24 07:47
Vital Signs
Initial and Last Documented VS:
Initial Vital Signs
Temp Pulse Resp BP Pulse Ox
98.1 F 64 18 140/92 96
02/26/24 07:20 02/26/24 07:20 02/26/24 07:20 02/26/24 07:20 02/26/24 07:20
Last Documented Vital Signs
Temp Pulse Resp BP Pulse Ox
98.1 F 114 23 111/81 92
02/26/24 07:20 02/26/24 09:45 02/26/24 09:45 02/26/24 09:04 02/26/24 09:45
*Pulse Oximetry
Patient hypoxic: no
*EKG
Interpreted by ED Provider?: Yes
Interpretation: abnormal
Comparison EKG: changes noted
Heart Rate: 124
Rate: tachycardiac
Rhythm: a-fib
[place]: normal axis
Interval: normal interval
QRS Pattern: normal QRS
Ischemia: non-specific ST changes
*Slot Ambassador Interpretation
Rate: tachycardiac
Interpretation: abnormal
Heart Rate: 110
Rhythm: a-fib
*Critical Care Note
Total Time (30-74mins, 75-104mins- exclusive of procedures): Not Applicable
Update Note
Update Note:
Patient is remained medically stable and nontoxic. As for the influenza. He is in no distress nontoxic reasonable sats negative chest x-ray. Too late for Tamiflu. As for his A-fib RVR. Rate is in the low 100s. Reluctant to cardiovert in the ER
based on some mild uncertainty to timing along with not taking his anticoagulation along with the respiratory symptoms. Stressed with cardiology. Initially was going to start Cardizem however with his baseline rate very reasonable we will hold on
Cardizem
ED Attending Note
-
Portions of this chart may have been created with voice recognition software.� Occasional wrong word or��sound alike� substitutions may have occurred due to the inherent limitations of voice recognition software.
Discharge Plan
Departure
Patient Disposition: Home (Routine Discharge)
Date of Disposition: 02/26/24
Time of Disposition: 09:49
Patient with high blood pressure during this ER visit?: Yes
Discharge Problem:
Paroxysmal atrial fibrillation/RVR, Influenza
Instructions: Atrial Fibrillation (DC), Flu in adults - Discharge instructions, BLOOD PRESSURE
Prescriptions:
No Action
aspirin 81 MG tablet,delayed release (DR/EC)
81 mg PO DAILY
amlodipine 5 MG tablet
5 mg PO DAILY
ezetimibe 10 MG tablet
10 mg PO DAILY
atorvastatin 80 MG tablet
80 mg PO DAILY
lisinopril 40 mg Tablet
40 mg PO DAILY
clonazepam 1 mg Tablet
1 mg PO HS PRN (Reason: sleep)
ferrous sulfate 325 mg (65 mg iron) tablet
325 mg PO DAILY Qty: 30 0RF
sotalol 120 mg Tablet
120 mg PO BID Qty: 60 11RF
Eliquis 5 mg Tablet
5 mg PO BID Qty: 60 11RF
metoprolol succinate 50 mg Tablet Extended Release 24 Hr
50 mg PO BID Qty: 60 1RF
Referrals:
Kali Fitzpatrick MD [Active] - 03/01/24 8:20 am (You have an appt to see Dr. Fitzpatrick's nurse practitioner, Keeley, at the [facility] office on 03/01/24 at 8:20 AM. Please call [phone] if you need to reschedule.)
Dileep Ortiz MD [Family Provider] -
Activity Restrictions/Additional Instructions:
-The cardiology office in [address] of the [facility] has a 1 month supply of Eliquis 5 mg waiting for you at the front desk auxiliary. Please walk to the office after you leave the ER to picking machine operator helper your medication. The anticoagulation clinic at the cardiology
office is also working on patient prescription assistance paperwork to help with future Eliquis refills.
Interventions
Interventions:
*Risk Screen - Suicide Last Done: 02/26/24 07:20
*General Assessment Last Done: 02/26/24 07:20
*Neglect/Abuse Screening Last Done: 02/26/24 07:20
ED- Fall Risk Assessment Last Done: 02/26/24 07:36
*ED COVID-19 Vaccine History Last Done: 02/26/24 07:36
*Nursing Disposition Last Done: 02/26/24 10:11
ED- Cardiac Assessment Last Done: 02/26/24 07:36
ED- Pulmonary Assessment Last Done: 02/26/24 07:36
Discharge Date and Time
Discharge Date/Time: 02/26/24 10:13
Print Language: SCOTTISH
[2024-02-26 08:10] LABS: Blood Urea Nitrogen 11 mg/dl (9-20); Calcium 8.7 mg/dl (8.4-10.2); Carbon Dioxide 27 mmol/L (22-30); Chloride 103 mmol/L (98-107); Estimated Creatinine Clearance > 125 ml/min; Glucose 110 mg/dl (70-99); Sodium 139 mmol/L (135-145); eGFR > 60.00
[2024-02-26 08:36] LABS: COVID-19 Antigen Negative (Negative)
[2024-02-26 09:04] VITALS: BP 111/81
== END 2024-02-26 10:13 | disposition home or self-care (01) ==
LOC: EMR 07:17
PROVIDERS: EMERGENCY PHYSICIAN Emergency Medicine; FAMILY PHYSICIAN Family Medicine
DX: I48.0 Paroxysmal atrial fibrillation (principal); J10.1 Influenza due to other identified influenza virus with other respiratory manifestations; I25.10 Atherosclerotic heart disease of native coronary artery without angina pectoris; I10 Essential (primary) hypertension; E78.00 Pure hypercholesterolemia, unspecified; I25.2 Old myocardial infarction; Z95.5 Presence of coronary angioplasty implant and graft; Z79.899 Other long term (current) drug therapy; Z91.190 Patient's noncompliance with other medical treatment and regimen due to financial hardship
CPT/HCPCS: 99285; 71046; 80048; 85025; 87502; 87811; 93005

== ENCOUNTER 2024-05-09 23:42 | Inpatient (IN) | payer MEDICARE, SELFPAY ==
[2024-05-09] VITALS (9 sets, daily range): BP systolic 137–179; BP diastolic 84–128; BMI 39.4
[2024-05-09 20:09] LABS: % Basophils 0.5 % (0-2); % Eosinophils 1.5 % (0-6); % Immature Granulocytes 0.4 % (0-0.5); % Lymphocytes 13.6 % (20.5-51.1); % Monocytes 13.5 % (1.7-9.3); % Neutrophils 70.5 % (42.2-75.2); Absolute Eosinophils 0.1 10^3/uL (0-0.7); Absolute Lymphocytes 1.1 10^3/uL (1.2-3.4); Absolute Monocytes 1.1 10^3/uL (0.1-0.6); Absolute Neutrophils 5.5 10^3/uL (1.4-6.5); Hemoglobin 17.7 g/dL (13.0-18.0); Mean Corp Hgb Conc. 35.4 g/dL (33.0-37.0); Mean Corpuscular Hgb 32.2 pg (27.0-31.0); Mean Corpuscular Volume 91.1 fL (80.0-94.0); Mean Platelet Volume 9.6 fL (7.4-10.4); Nucleated Red Blood Cells % 0 % (-); Platelet Count 180 10^3/uL (130-400); Red Blood Cell Count 5.49 10^6/uL (4.70-6.10); White Blood Cell Count 7.8 10^3/uL (4.8-10.8)
[2024-05-09 20:29] LABS: ALT (SGPT) 28 U/L (0-50); AST (SGOT) 19 U/L (17-59); Albumin 4.5 g/dl (3.5-5.0); Alkaline Phosphatase 85 U/L (38-126); Blood Urea Nitrogen 24 mg/dl (9-20); Calcium 9.6 mg/dl (8.4-10.2); Carbon Dioxide 21 mmol/L (22-30); Chloride 103 mmol/L (98-107); Glucose 112 mg/dl (70-99); Potassium 4.3 mmol/L (3.5-5.1); Sodium 135 mmol/L (135-145); Total Bilirubin 0.8 mg/dl (0.2-1.3); Total Protein 6.7 g/dl (6.3-8.2); eGFR > 60.00
[2024-05-09 20:34] LABS: NT-proBNP 2700 pg/ml; Troponin I < 0.012 ng/ml
--- NOTE | 2024-05-09 21:10 | ED.GENMED ---
History of Present Illness
General
Chief Complaint: Cardiac Symptoms
Time Seen by Provider: 05/09/24 20:51
History of Present Illness
History of Present Illness:
Patient is a 63-year-old male with a history of atrial fibrillation who presents to the emergency department with palpitations. Symptoms started at 1:30 AM. Patient notes he has required cardioversion in the past. States he has not taken his
eliquis for about 2 weeks. no Chest pain. No sob
Past History
Past History
ED Past Medical History: Arrthythmia (Atrial fibrillation), CAD, HTN, Hypercholesterolemia, OK (X 2) and Other (Back pain, Numbness in arms and legs)
ED Past Surgical History: Cardiac (Multiple stents) and Orthopedic (right knee surgery, Ulnar nerve removed Left elbow)
Social History
Tobacco: Non-smoker
Alcohol: Occasional
Drug: None
Personal:
Living: with family
Employment: Employed
Family History
Family History: Other (Mother with leukemia)
Phy Exam
Physical Exam
Physical Exam:
GENERAL APPEARANCE: NAD, well developed/ well nourished
EYES lids/conjunctiva normal
EARS/NOSE/THROAT Mucous membranes moist, uvula midline without oral pharyngeal erythema, exudate or swelling
HEAD/NECK normocephalic atraumatic, neck is supple.
RESPIRATORY respiratory effort normal, speaks in full sentences, no accessory muscle use. Lungs clear to auscultation without rhonchi, wheezes, rales
CARDIAC tachycardia, irregularly irregular
ABDOMINAL Soft, ND/NT. No pulsatile masses on exam, rebound tenderness, Biggs sign or pain over Mcburney's point.
MUSCLES/EXTREMITIES No abnormal range of motion, no swelling.
SKIN Warm, pink and dry. No rashes
NEUROLOGICAL Speech is clear and appropriate. Normal level of consciousness. 5/5 strength in all extremities.
PSYCH Normal mood and affect. Judgement/competence is appropriate
Course
Orders/Labs/Results
Orders:
Orders
05/09/24 19:37
ECG [Electrocardiogram (*1)] Urgent
Reason for Study: Atrial Fibrillation
EKG- Treatment ONCE
05/09/24 19:57
Cardiac Monitoring- Treatment ONCE
IV Insert/Care/Rem.- Treatment PRN
CR Chest - 2 Views Urgent
Comment:
Reason For Exam: respiratory distress
O2 Therapy [RESP] Urgent
Titrate/Wean O2 to maintain O2 sat greater than (%): 93
Special Instructions: TO MAINTAIN CONTINUOUS O2 SATS >/= 93%
Pulse Ox/cont/shift [RESP] Urgent
Quantity: 1
Special Instructions: continuous pulse ox
05/09/24 20:04
Complete Blood Count/With Diff Urgent
Comprehensive Metabolic Panel Urgent
NT-proBNP Urgent
Troponin I Urgent
05/09/24 21:01
Heparin 4,000 units IV NOW STA
05/09/24 21:02
Notify MD As Directed
Notify physician if: Call provider for further orders if PTT is greater than or equal to 200 per heparin
infusion protocol.
Nursing to Place Non Medication Order As Directed
Physician Order: PTT 6 hours after initial start of Heparin infusion
Above order entered?: Yes
05/09/24 21:03
Diltiazem HCl [Cardizem] 20 mg IV NOW STA
05/09/24 21:15
Diltiazem 125 mg/125 ml Nss [Cardizem] 125 mg in 125 ml IV PER PROTOCOL
Initial dose in mg/hr, then titrate:: 5
Titrate to keep:: Heart rate 80-100 bpm
Titrate by mg/hr:: 5 mg/hr
Frequency of titrations (minutes):: 15
Maximum dose in mg/hr:: 15
05/09/24 21:22
PTT Urgent
Comment: Obtain baseline before beginning heparin infusion if not already collected
Prothrombin Time Urgent
05/09/24 23:17
Admit/Transfer Patient As Directed
Co-Sign Provider:
Level of Care: Inpatient admission
Assign to:: IVU
Physician / Group: tao reddy
Diagnosis: afib with rvr
Reason for Hospitalization: afib with rvr
Expected length of stay greater than two midnights?: Yes
ELOS- Estimated Length of Stay in days: 3
I certify the patient meets the requirements for IP care: Yes
Code Status As Directed
Resuscitation Status: Full Code
05/09/24 23:25
PRN Pain Medication Management As Directed
May give lesser potent ordered pain med per pt: Yes
preference::
Protocol:: Medication orders for pain may be administered in a
manner that supports deferring to patient preference
when the pt is:
- Requesting an ordered lesser potent pain medication.
Least to most potent pain medications are defined
as: acetaminophen < NSAID < tramadol < opioids
(morphine, oxycodone, hydromorphone).
- Requesting a lesser dose of the same medication IF
ORDERED.
- Requesting a less intrusive route of administration
if both routes are prescribed by the provider (PO <
IV).
05/09/24 23:26
CARDIOLOGY CONSULT Routine
Consulting Provider: Lonnie Munguia
Was physician already notified: No
Reason for consult: afib with rvr
05/09/24 23:27
Consult Notification Routine
Specialty to Notify: Cardiology
05/10/24 00:44
Acetaminophen [Tylenol] 650 mg PO Q4HPRN PRN
Diltiazem 125 mg/125 ml Nss [Cardizem] 125 mg in 125 ml IV PER PROTOCOL
Initial dose in mg/hr, then titrate:: 5
Titrate to keep:: Heart rate 80-100 bpm
Titrate by mg/hr:: 5 mg/hr
Frequency of titrations (minutes):: 15
Maximum dose in mg/hr:: 15
05/10/24 00:44
Heparin Protocol- PTT Orders As Directed
PTT per Heparin protocol: -Obtain CBC and baseline PTT - if not already collected.
-Obtain PTT 6 hours from start of infusion. Then, every 6 hours until 2 consecutive
PTT's are therapeutic. Then, PTT Daily.
-With each rate change, obtain PTT every 6 hours until 2 consecutive PTT's are
therapeutic. Then, PTT Daily.
Activity As Directed
Activity Level: As Tolerated
Intake/ Output As Directed
Frequency: Per unit guidelines
Notify MD As Directed
Notify physician if: PTT is greater than or equal to 200.
Vital Signs As Directed
Frequency: Per unit guidelines
Weight As Directed
Frequency: Daily
Pt Eval And Treat Routine
Activity Level: As Tolerated
05/10/24 06:00
EKG [Electrocardiogram (*1)] IN AM
Reason for Study: Atrial Fibrillation
NPO
Allow oral meds: Yes
Allow clear liquids: No
NPO with Ice Chips: No
Cardiovascular Evaluation IN AM
Complete Blood Count/With Diff IN AM
Comprehensive Metabolic Panel IN AM
05/10/24 08:00
Amlodipine [Norvasc] 5 mg PO DAILY
Atorvastatin [Lipitor] 80 mg PO DAILY
Ezetimibe [Zetia] 10 mg PO DAILY
Sotalol [Betapace] 120 mg PO BID
lisinopril 40 mg PO DAILY
metoprolol succinate 100 mg PO DAILY
05/10/24 22:00
Metoprolol Xl [Toprol Xl] 50 mg PO HS
05/11/24 06:00
Complete Blood Count/No Diff Q2D
Comment: notify provider: Platelet count < 130,000 or decrease by 50% from baseline
Complete Blood Count/With Diff IN AM
Comprehensive Metabolic Panel IN AM
05/12/24 06:00
Complete Blood Count/With Diff IN AM
Comprehensive Metabolic Panel IN AM
05/13/24 06:00
Complete Blood Count/No Diff Q2D
Comment: notify provider: Platelet count < 130,000 or decrease by 50% from baseline
05/15/24 06:00
Complete Blood Count/No Diff Q2D
Comment: notify provider: Platelet count < 130,000 or decrease by 50% from baseline
05/17/24 06:00
Complete Blood Count/No Diff Q2D
Comment: notify provider: Platelet count < 130,000 or decrease by 50% from baseline
05/19/24 06:00
Complete Blood Count/No Diff Q2D
Comment: notify provider: Platelet count < 130,000 or decrease by 50% from baseline
05/21/24 06:00
Complete Blood Count/No Diff Q2D
Comment: notify provider: Platelet count < 130,000 or decrease by 50% from baseline
05/23/24 06:00
Complete Blood Count/No Diff Q2D
Comment: notify provider: Platelet count < 130,000 or decrease by 50% from baseline
05/25/24 06:00
Complete Blood Count/No Diff Q2D
Comment: notify provider: Platelet count < 130,000 or decrease by 50% from baseline
Abnormal Lab Results
05/09/24
20:04
MCH 32.2 H pg
(27.0-31.0)
Absolute Lymphs (auto) 1.1 L 10^3/uL
(1.2-3.4)
Absolute Monos (auto) 1.1 H 10^3/uL
(0.1-0.6)
Lymphocytes % 13.6 L %
(20.5-51.1)
Monocytes % 13.5 H %
(1.7-9.3)
Carbon Dioxide 21 L mmol/L
(22-30)
BUN 24 H mg/dl
(9-20)
Glucose 112 H mg/dl
(70-99)
05/09/24 20:04
05/09/24 20:04
Vital Signs
Initial and Last Documented VS:
Initial Vital Signs
Temp Pulse Resp BP Pulse Ox
97.9 F 136 20 179/109 98
05/09/24 19:45 05/09/24 19:45 05/09/24 19:45 05/09/24 19:45 05/09/24 19:45
Last Documented Vital Signs
Temp Pulse Resp BP Pulse Ox
98.4 F 115 20 125/98 96
05/09/24 23:27 05/10/24 01:07 05/09/24 23:27 05/10/24 01:07 05/09/24 23:27
*Critical Care Note
Total Time (30-74mins, 75-104mins- exclusive of procedures): Not Applicable
ED Attending Note
ED Attending Note
ED Attending Note:
Patient with paroxysmal atrial fibrillation found to be in rapid A-fib. He is hemodynamically stable. He is not anticoagulated. Will start an drip and Cardizem infusion. Will admit for CLEVE and cardioversion
-
Portions of this chart may have been created with voice recognition software.� Occasional wrong word or��sound alike� substitutions may have occurred due to the inherent limitations of voice recognition software.
Discharge Plan
Departure
Patient Disposition: Admit
Date of Disposition: 05/09/24
Time of Disposition: 22:18
Presentation/result/management discussed w/ accepting MD/DO: Hospitalist
Discharge Problem:
Atrial fibrillation with rapid ventricular response
Interventions
Interventions:
*Risk Screen - Suicide Last Done: 05/09/24 23:27
*General Assessment Last Done: 05/09/24 23:27
*Neglect/Abuse Screening Last Done: 05/09/24 23:27
*ED- Fall Risk Assessment Last Done: 05/09/24 19:45
*ED COVID-19 Vaccine History Last Done: 05/09/24 19:45
*Nursing Disposition Last Done: 05/10/24 00:27
ED- Pulmonary Assessment Last Done: 05/09/24 23:27
ED- Cardiac Assessment Last Done: 05/09/24 23:27
Discharge Date and Time
Discharge Date/Time: 05/10/24 00:27
[2024-05-09 21:44] LABS: INR 0.91; PT 12.5 Sec (11.4-14.6)
[2024-05-09 21:45] LABS: APTT 26.2 Sec (23.4-35.0)
[2024-05-09] MEDS: CARDIZEM 125 IV (21:58)
[2024-05-09] MEDS: CARDIZEM 20 MG IV (21:58)
[2024-05-09] MEDS: HEPARIN 4000 UNITS IV (21:59)
--- NOTE | 2024-05-09 22:22 | HPS.HSE ---
Addendum entered and electronically signed by Tai Lizama DO 05/09/24 23:50:
Patient seen and examined independently. Agree with findings and plan as set forth by COMPA Mauricio.
Patient is a 63y M with PMH significant for A-Fib, ASCVD and hypertension who presents to ED complaining of palpitations for almost 24 hours. Patient has history of A-Fib and has required cardioversion in the past. Patient has had issues with
obtaining OAC. He has had lapses in Xarelto in the past due to insurance / financial issues. He was most recently given Eliquis samples by the Cardiology office; however, he ran out of this about 2 weeks ago. He states that he has been compliant
with his other medications including Sotalol, Cardizem, etc.
Plan:
Paroxysmal Atrial Fibrillation with Rapid Ventricular Response
ASCVD
Benign Hypertension
Chronic Back Pain
Peripheral Neuropathy
Obesity
Plan:
Admit to IVU for further evaluation and treatment.
Continue Cardizem gtt and heparin gtt started in the ED.
Cardiology evaluation.
Possible CLEVE / Cardioversion given interruption in anticoagulation.
Continue other CV medications / BP meds / etc.
Original Note:
Family Physician
-
Family Physician: Dileep Ortiz
Chief Complaint
-
Palpitations known history of A-fib
History of Present Illness
63-year-old male with history of A-fib presenting to the ED this evening complaining of palpitations that started at 1:30 in the morning. He has known history of A-fib that has required cardioversion in the past. He has missed his Eliquis for the
past 2 weeks due to insurance issues. He reports he typically receives samples of Eliquis due to the high cost. He is interested in going back to Xarelto as this is more affordable for him. In the ER his heart rate is 130 bpm he is currently on
IV heparin and Cardizem drip. He denies headache, fever, chills, sore throat, cough, shortness of breath, chest pain, abdominal pain, nausea, vomiting, diarrhea, urinary symptoms. He has past medical history of paroxysmal A-fib, CAD/PA x 2,
cardiac stents,, enlarged aortic root 4cm centimeter, ascending aorta 4.2 cm HTN, HLD, chronic back pain, neuropathy legs, alcohol abuse, class II obesity
Medical History
Past Medical History
Past Medical History: Reports Other
Additional Past Medical History:
paroxysmal A-fib
CAD/PA x 2 cardiac stents-RCA stent 2008, LAD stent, first diagonal stent 05/06/2017
enlarged aortic root 4cm centimeter
ascending aorta 4.2 cm
HTN
HLD
chronic back pain
neuropathy legs
class II obesity
Past Surgical History: Reports Other
Additional Past Surgical History:
CAD/PA x 2 cardiac stents
Epidural 12/2004
Arthroscopy right knee
Cardiac stent first diagonal
2008 PA stent RCA
Stent LAD 04/24/2017
Cardiac stent times 17 February 2017
Ulnar nerve removed left elbow March 2019
Social History
Tobacco: Non-smoker
Alcohol: Occasional (Drinks 1-2 beers or 1 glass of wine once a week)
Drug: None
Personal:
Employment: Retired
Family History
Family History: Other (Mother PA age 82, father age 82 CLL, HTN, sister age 35 morbid obesity dieting sleep, 1 sister history A-fib, 1 brother history of back pain)
Allergies / Home Medications
Allergies reflects when Allergies were last updated in [email or web address].
Home Medications with original date entered in [email or web address]
Allergy/Medication List:
Allergies
Allergy/AdvReac Type Severity Reaction Status Date / Time
No Known Allergies Allergy Verified 02/26/24 07:19
Home Medications
atorvastatin 80 mg tablet 80 mg PO DAILY High cholesterol 05/11/20
ezetimibe 10 mg tablet 10 mg PO DAILY High cholesterol 05/11/20
lisinopril 40 mg tablet 40 mg PO DAILY Blood Pressure 06/04/23
sotalol 120 mg tablet 120 mg PO BID Arrhythmia #60 tabs 11/29/23
Cardizem CD 120 mg PO DAILY 05/09/24
amlodipine 5 mg PO DAILY 05/09/24
metoprolol succinate 50 mg PO HS 05/09/24
metoprolol succinate 100 mg PO DAILY 05/09/24
Review of Systems
-
History Source: Patient
A 12 point ROS was completed and negative except as noted: Yes
Constitutional: Denies Fever or Chills
Respiratory: Denies Cough or Trouble Breathing
Cardiac: Reports Palpitations; Denies Chest Pain or Diaphoresis
Abdomen/GI: Denies Abdominal Pain, Nausea, Vomiting, Diarrhea, Constipated or Anorexia
: Denies Dysuria, Frequency, Flank Pain or Incontinence
Musculoskeletal: Reports Edema (Trace bilateral legs); Denies Joint Pain
Skin: Denies Itching or Rash
Neurological: Denies Dizzy or Headache
Endocrine: Reports No Symptoms
Hematologic/Lymphatic: Reports No Symptoms
Psych: Reports Calm
Physical Exam
Vital Signs
Vital Signs
Temp Pulse Resp BP Pulse Ox
97.9 F 136 20 179/107 98
05/09/24 19:48 05/09/24 19:48 05/09/24 19:48 05/09/24 19:48 05/09/24 19:48
Physical Exam
General: Comfortable, Conversant and Morbidly Obese; No Pain, Fever or Chills
HEENT: NormoCephalic, Anicteric, Moist mucous membranes, PERRLA, [place]on Conjunctivae and No Ptosis
Respiratory: Clear; No Wheezes, Rales or Rhonchi
Cardiac: S1/S2, Irregular Rhythm (A-fib HR 112 bpm on monitor) and Peripheral Edema (Trace bilateral legs); No Murmur, Rub or Gallop
Breast: Deferred by me
GI: Soft, Non Tender, Non Distended, Normal Bowel Sounds and Other (Protuberant abdomen unable to palpate spleen or liver)
Rectal: Deferred by Provider
Genito-urinary: Deferred by me
Musculoskeletal: No Clubbing, No Cyanosis, Edema, Left Lower Extremity (Trace) and Edema, Right Lower Extremity (Trace); No Edema, Left Upper Extremity or Edema, Right Upper Extremity
Skin: Warm and Dry; No Rash or Jaundice
Neuro: AO x 3, No Motor Deficits, Nonfocal/grossly intact, Cranial Nerves Intact and No Sensory Deficits; No Slurred Speech, Facial Droop, Tremors or Sedated
Psych: Calm
Laboratory Results
-
05/09/24 20:04
05/09/24 20:04
Laboratory Results
PT 12.5 Sec (11.4-14.6) 05/09/24 21:22
INR 0.91 05/09/24 21:22
APTT 26.2 Sec (23.4-35.0) 05/09/24 21:22
Total Bilirubin 0.8 mg/dl (0.2-1.3) 05/09/24 20:04
AST 19 U/L (17-59) 05/09/24 20:04
ALT 28 U/L (0-50) 05/09/24 20:04
Alkaline Phosphatase 85 U/L (38-126) 05/09/24 20:04
Troponin I < 0.012 ng/ml 05/09/24 20:04
Data Reviewed
-
Diagnostic Radiology: Report Reviewed by me
Lab Data: Labs Reviewed by me
Impression/Plan
-
Impression/plan:
Admit to IVU
#A-fib with RVR/history paroxysmal A-fib
Has required cardioversions in the past
-Out of Eliquis x 2 weeks due to insurance
-IV heparin drip
-IV Cardizem drip
-Consult [facility] cardiology
CLEVE November 28, 2023:
EF 50-55%, normal biventricular size and systolic function without regional wall motion
No significant valvular disease.
No left atrial appendage thrombus.
Mildly enlarged aortic root (4.0 cm). Mildly enlarged ascending aorta (4.2cm)
#Known enlarged aortic root 4 cm
#Known mildly enlarged ascending aorta 4.2 cm
#CAD/PA x 2, -RCA stent 2008, LAD stent, first diagonal stent 05/06/2017
-Continue metoprolol succinate 100 mg a.m., 50 mg at bedtime, lisinopril 40 mg daily, sotalol 120 mg p.o. twice daily, amlodipine 5 mg daily
-Continue Lipitor 80 mg at bedtime, Zetia 10 mg daily
#HTN-benign with multidrug regimen
-Continue metoprolol succinate 100 mg a.m., 50 mg at bedtime, lisinopril 40 mg daily, Sotalol 120 mg p.o. twice daily,
-Hold Cardizem 120 mg daily
-cont Amlodipine 5 mg daily with hold parameters
#HLD
-Continue Lipitor 80 mg at bedtime, Zetia 10 mg daily
#Chronic back pain
No reported meds
#Neuropathy legs
-No reported meds
#Class II obesity�BMI 39.4
Affects all aspects of care
Weight loss recommended
DVT prophylaxis
Current IV heparin drip
Full code
[2024-05-10] VITALS (15 sets, daily range): BP systolic 116–159; BP diastolic 64–138; BMI 39.4; BMI 39.0; BMI 38.7
--- NOTE | 2024-05-10 00:47 | EDRN ---
This RN assisted pt's primary RN, Tiffany Schulz, by sending report to IVU and calling report to Luis Taylor RN. Asked why heparin bolus given but no infusion. Heparin infusion was not verified by pharmacy when this RN called report. This RN called
pharmacy to verify heparin infusion. Bag of heparin taken to IVU with pt to be started as soon as order verified which was discussed with Luis Taylor RN.
[2024-05-10] MEDS: HEPARIN 25000 UNITS/250 ML IV (00:51)
[2024-05-10] MEDS: KLONOPIN 1 MG PO (01:07)
[2024-05-10] MEDS: LOPRESSOR 50 MG PO (01:07)
--- NOTE | 2024-05-10 01:16 | PTCARENOTE ---
received the patient from the ED. AAOx3. denies any cp/sob. complains of palpitations at times- 'it takes my breath away.' HR Afib 115-120s. cardizem gtt titrated to 15 ml/hr. bp stable. denies any lightheadedness/dizziness. heparin gtt started per
protocol. IV site patent. patient states not taking PM home dose of metoprolol. updated [place] [employer]. order placed and given, see mar. reviewed plan of care with patient and verbalized understanding. Afib booklet given. reviewed
importance of blood thinner and risks associated. patient verbalized understanding but states medication is too expensive for him. case management consult ordered. steady on his feet OOB. call lares within reach.
[2024-05-10] MEDS: CARDIZEM 125 IV (05:50)
[2024-05-10 06:20] LABS: APTT 51.8 Sec (23.4-35.0)
[2024-05-10 06:31] LABS: ALT (SGPT) 26 U/L (0-50); AST (SGOT) 16 U/L (17-59); Albumin 3.8 g/dl (3.5-5.0); Alkaline Phosphatase 78 U/L (38-126); Blood Urea Nitrogen 20 mg/dl (9-20); Calcium 9.2 mg/dl (8.4-10.2); Carbon Dioxide 27 mmol/L (22-30); Chloride 105 mmol/L (98-107); Estimated Creatinine Clearance > 125 ml/min; Glucose 136 mg/dl (70-99); HDL Cholesterol 45 mg/dl; LDL Cholesterol, Calculated 146 mg/dl; Potassium 4.3 mmol/L (3.5-5.1); Sodium 137 mmol/L (135-145); Total Bilirubin 1.3 mg/dl (0.2-1.3); Total Cholesterol 224 mg/dl (50-199); Total Protein 6.3 g/dl (6.3-8.2); Triglyceride 165 mg/dl (10-149); Very Low Density Lipoprotein 33 mg/dl (0-30); eGFR > 60.00
[2024-05-10 06:36] LABS: % Basophils 0.3 % (0-2); % Eosinophils 1.9 % (0-6); % Immature Granulocytes 0.3 % (0-0.5); % Monocytes 13.9 % (1.7-9.3); % Neutrophils 68.6 % (42.2-75.2); Absolute Eosinophils 0.1 10^3/uL (0-0.7); Absolute Monocytes 0.9 10^3/uL (0.1-0.6); Absolute Neutrophils 4.4 10^3/uL (1.4-6.5); Hematocrit 50.9 % (39.0-52.0); Hemoglobin 17.5 g/dL (13.0-18.0); Mean Corp Hgb Conc. 34.4 g/dL (33.0-37.0); Mean Corpuscular Hgb 32.1 pg (27.0-31.0); Mean Corpuscular Volume 93.2 fL (80.0-94.0); Nucleated Red Blood Cells % 0 % (-); Platelet Count 164 10^3/uL (130-400); Red Blood Cell Count 5.46 10^6/uL (4.70-6.10); Red Cell Dist. Width 13.2 % (11.5-14.5); White Blood Cell Count 6.5 10^3/uL (4.8-10.8)
--- NOTE | 2024-05-10 07:39 | PTCARENOTE ---
assumed care. Patient awake walking to the bathroom. Cardizem and Heparin infusing per MAR. A-fib HR 80-120's. VSS, call lares in reach
--- NOTE | 2024-05-10 07:54 | CON.CAR ---
Addendum entered and electronically signed by Janusz Person MD 05/10/24 09:08:
I saw and examined the patient.
The HOROLOGIST or PA's note was reviewed and I agree with the note.
Comment: General: Well developed, well nourished in NAD.
Neck: Supple, no JVD, HJR, carotids +2 B/L, no bruits bilaterally.
Heart: Non displaced PMI, Irreg, no murmurs, No S3, S4, no rubs.
Lungs: Clear to auscultation bilaterally, no wheeze, rhonchi, rubs bilaterally,
normal expiratory phase.
Abdomen: Normal bowel sounds, soft, non-tender, non-distended.
Extremities: No clubbing, cyanosis or edema bilaterally.
Neuro: Grossly nonfocal, awake, alert and oriented x3.
Thai has history of CAD status post MA with multiple PCI's, paroxysmal atrial fibrillation on chronic Xarelto which he is noncompliant, recovered ischemic cardiomyopathy ejection fraction of 50 to 55% in 2023, hyperlipidemia, pancreatitis,
hypertension. He was admitted for sotalol loading in November 2023. He admits to noncompliance at times with anticoagulation in part due to unable to afford Eliquis. He woke up Friday morning with feeling of his heart racing and continued symptoms
found to be in A-fib. He is now on IV Cardizem drip and IV heparin.
Will arrange for CLEVE/cardioversion today after explaining risk and benefits in detail to patient. Compliance with medication especially anticoagulation was stressed in detail. Hopefully he can afford Xarelto. Consider tentative discharge later
today after procedure.
Original Note:
Consultation
Consultation Request
Date/Time Consultation Requested: 05/10/2024
Date/Time Consultation Performed: 05/10/2024
Requesting Provider: Dr. Lizama
Performing Provider: Inez Atkinson PA-C for Dr. Person
Reason for Consultation: Atrial fibrillation w/ RVR
Medical History
-
History of Present Illness:
Patient is a 63-year-old male with past medical history of CAD status post multiple stents, recovered ischemic cardiomyopathy, paroxysmal atrial fibrillation, hyperlipidemia, hypertension and noncompliance. He was here with Afib in November 2023
with PAF while on low dose Amiodarone and was transitioned to Sotalol. He retired in late 2023 and could not afford some of his medications and was given samples of Eliquis in February 2024 but ran out of Eliquis 3 weeks ago. He has been taking
Sotalol, Toprol and Cardizem. He reports on Friday morning (05/09/24) around 1:30 AM he woke up from sleep with a feeling of his heart racing and took his am medications early. When symptoms continued throughout the day he came to [facility] and was in
atrial fibrillation with RVR. He was started on IV Cardizem drip and IV Heparin gtt. troponin was negative. proBNP 2700. Patient does not appear to be acutely volume overloaded. He denies chest discomfort, lower extremity edema, abdominal
bloating, orthopnea. Denies recent changes to caffeine, alcohol, supplement use.
Patient reports that Xarelto is much more affordable for him compared to Eliquis.
PMH:
Paroxysmal atrial fibrillation
Chronic OAC with xarelto
History of CAD/MA with multiple PCIs:
LAD August 2017
LCX/mid LAD April 2017
Diagonal February 2017
Mid RCA August 2008
Recovered ischemic cardiomyopathy with last EF 50-55% 05/2023, EF preserved on CLEVE November 2023
Hyperlipidemia
History of recurrent pancreatitis
Hypertension
Obesity
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
History of right lower leg fracture
Noncompliance due to insurance issues
Past Medical History
Past Medical History: Other (in HPI)
Past Surgical History: Cardiac (Multiple coronary stents to LAD diagonal and RCA, multiple cardioversions) and Orthopedic (Arthroscopic right knee surgery, ulnar nerve removed from left elbow in March 2019)
Social History
Tobacco: Non-Smoker
Alcohol: Occasional (Few beers or glass of wine on the weekend)
Drug: None
Living: With Family (Son)
Employment: Retired
Family History
Family History: CAD
Allergies / Home Medications
Allergy/AdvReac Type Severity Reaction Status Date / Time
No Known Allergies Allergy Verified 02/26/24 07:19
�Medication �Instructions �Recorded �Confirmed �Type
atorvastatin 80 mg tablet 80 mg PO DAILY High cholesterol 05/11/20 05/10/24 History
ezetimibe 10 mg tablet 10 mg PO DAILY High cholesterol 05/11/20 05/10/24 History
lisinopril 40 mg tablet 40 mg PO DAILY Blood Pressure 06/04/23 05/10/24 History
sotalol 120 mg tablet 120 mg PO BID Arrhythmia #60 tabs 11/29/23 05/10/24 Rx
Cardizem CD 120 mg PO DAILY 05/09/24 05/10/24 History
amlodipine 5 mg PO DAILY 05/09/24 05/10/24 History
metoprolol succinate 50 mg PO HS 05/09/24 05/10/24 History
metoprolol succinate 100 mg PO DAILY 05/09/24 05/10/24 History
clonazepam 1 mg tablet (Klonopin) 1 mg PO HS 05/10/24 05/10/24 History
Review of Systems
-
History Source: Patient
All other systems: Negative unless noted
Physical Exam
Vital Signs
Temp Pulse Resp BP Pulse Ox
97.9 F 90 20 143/95 96
05/10/24 06:48 05/10/24 06:00 05/10/24 06:48 05/10/24 05:51 05/10/24 06:48
GEN: No distress, awake, Ox3, obese
HEENT: supple, anicteric, mmm
LUNGS: CTA, no wheezes/rales
CV: Irregularly irregular, S1/S2, no murmur, rub or gallop
ABD: Obese, protuberant, soft, BS+, NT/ND
EXT: No edema, clubbing or cyanosis
NEURO: Gross non-focal
SKIN: No rash, warm, dry, pink
Lab Results
05/10/24 05:54
05/10/24 05:54
Troponin I < 0.012 ng/ml 05/09/24 20:04
Njb-I-Jbtbcnoezsz Pept 2700 pg/ml 05/09/24 20:04
Impression / Plan
-
PCP: Dileep Ortiz
Primary Sales Engineer Account Manager: Dr. Fitzpatrick
Impression:
Presented 05/09/2024 with palpitations, tachycardia
Paroxysmal atrial fibrillation, now with RVR
Chronic OAC, reports could not afford and has been off anticoagulation for the last 3 weeks
History of CAD/MA with multiple PCIs:
LAD August 2017
LCX/mid LAD April 2017
Diagonal February 2017
Mid RCA August 2008
Recovered ischemic cardiomyopathy with last EF 50-55% 05/2023 and CLEVE 11/2023
Hyperlipidemia
History of recurrent pancreatitis
Hypertension
Obesity
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
History of right lower leg fracture
Noncompliance due to insurance issues
ECHO 06/05/2023: Definity used, EF 50 to 55%, mild mid to distal apical septal hypokinesis, no significant valve disease, mildly dilated aortic root and ascending aorta
CLEVE 11/28/2023: EF 50 to 55%. No significant valvular disease. No left atrial appendage thrombus. Mildly enlarged aortic root (4.0 cm). Mildly enlarged ascending aorta (4.2 cm).
Lexiscan nuclear stress test 10/02/2023: Fixed defect in apical anterior segment consistent with infarction, EF 56%
Plan:
-Presented 05/09/2024 with palpitations, tachycardia and found to be in atrial fibrillation with rapid ventricular response in setting of noncompliance with medication.
-Heart rates better controlled with IV diltiazem drip.
-Currently on heparin drip.
-Plan for CLEVE/cardioversion 05/10/2024
-Patient reports Xarelto is less expensive than Eliquis. Will transition to Xarelto. Patient now on Medicare. Will have to meet his $2000 deductible for prescriptions.
-Continue sotalol and Toprol.
-Given multiple recurrences of PAF would consider discussion for ablation as outpatient
-Known CAD with multiple coronary stents. Troponin negative.
-Continue metoprolol, lisinopril and amlodipine for hypertension
-Hyperlipidemia with lipids TC 224, HDL 45, LDL 146, triglycerides 165. Patient reports he has not been taking atorvastatin or Zetia as he ran out.
-Once again discussed importance of compliance of taking his medications without interruption particularly his anticoagulation. Patient understands risk of stroke while off anticoagulation.
HPI 05/10/2024:
Patient is a 63-year-old male with past medical history of CAD status post multiple stents, recovered ischemic cardiomyopathy, paroxysmal atrial fibrillation, hyperlipidemia, hypertension and noncompliance. He was here with Afib in November 2023
with PAF while on low dose Amiodarone and was transitioned to Sotalol. He retired in late 2023 and could not afford some of his medications and was given samples of Eliquis in February 2024 but ran out of Eliquis 3 weeks ago. He has been taking
Sotalol, Toprol and Cardizem. He reports on Friday morning (05/09/24) around 1:30 AM he woke up from sleep with a feeling of his heart racing and took his am medications early. When symptoms continued throughout the day he came to [facility] and was in
atrial fibrillation with RVR. He was started on IV Cardizem drip and IV Heparin gtt. troponin was negative. proBNP 2700. Patient does not appear to be acutely volume overloaded. He denies chest discomfort, lower extremity edema, abdominal
bloating, orthopnea. Denies recent changes to caffeine, alcohol, supplement use.
Patient reports that Xarelto is much more affordable for him compared to Eliquis.
Data Reviewed
-
EKG: Report Reviewed by me, Discussed with Physician, Discussed with Nurse and Discussed with Patient
Radiology: Report Reviewed by me, Discussed with Physician, Discussed with Nurse and Discussed with Patient
Labs: Labs Reviewed by me, Discussed with Physician, Discussed with Nurse and Discussed with Patient
[2024-05-10] MEDS: TOPROL XL 100 MG PO (08:15)
[2024-05-10] MEDS: NORVASC 5 MG PO (08:15)
[2024-05-10] MEDS: ZETIA 10 MG PO (08:15)
[2024-05-10] MEDS: ZESTRIL 40 MG PO (08:15)
[2024-05-10] MEDS: BETAPACE 120 MG PO (08:15)
[2024-05-10] MEDS: LIPITOR 80 MG PO (08:16)
--- NOTE | 2024-05-10 09:17 | PTCARENOTE ---
Report called to dental lab technician, patient voided pre-procedure. NPO except meds with a small sip of water
--- NOTE | 2024-05-10 09:31 | W.PN.HOSP.TC ---
Today's Communication/Plan
-
Cardioversion. Discharge planning
Assessment / Plan
Assessment / Plan
Physical exam:
General: Well Developed, Well Nourished and No Apparent Distress
HEENT: Normocephalic, Atraumatic and Moist Mucous Membranes
Respiratory: Clear to Auscultation; Negative Wheezes, Rales or Rhonchi
Cardiac: Regular Rhythm and S1/S2
GI: Soft, Nontender and Nondistended
Musculoskeletal: No Clubbing, No Cyanosis and No Edema
Neuro: Awake, Alert and Oriented
Psych: Calm
A/P:
#A-fib with RVR/history paroxysmal A-fib
Status post cardioversion today and back in normal rhythm
Cardiology cleared for discharge if remains in normal rhythm
Prior to today:
Has required cardioversions in the past
-Out of Eliquis x 2 weeks due to insurance
-IV heparin drip
-IV Cardizem drip
-Consult [facility] cardiology
CLEVE November 28, 2023:
EF 50-55%, normal biventricular size and systolic function without regional wall motion
No significant valvular disease.
No left atrial appendage thrombus.
Mildly enlarged aortic root (4.0 cm). Mildly enlarged ascending aorta (4.2cm)
#Known enlarged aortic root 4 cm
#Known mildly enlarged ascending aorta 4.2 cm
#CAD/AZ x 2, -RCA stent 2008, LAD stent, first diagonal stent 05/06/2017
-Continue metoprolol succinate 100 mg a.m., 50 mg at bedtime, lisinopril 40 mg daily, sotalol 120 mg p.o. twice daily, amlodipine 5 mg daily
-Continue Lipitor 80 mg at bedtime, Zetia 10 mg daily
#HTN-benign with multidrug regimen
-Continue metoprolol succinate 100 mg a.m., 50 mg at bedtime, lisinopril 40 mg daily, Sotalol 120 mg p.o. twice daily,
-Hold Cardizem 120 mg daily
-cont Amlodipine 5 mg daily with hold parameters
#HLD
-Continue Lipitor 80 mg at bedtime, Zetia 10 mg daily
#Chronic back pain
No reported meds
#Neuropathy legs
-No reported meds
#Class II obesity�BMI 39.4
Affects all aspects of care
Weight loss recommended
DVT prophylaxis
Current IV heparin drip
Full code
Anticipated Discharge: Today
Subjective/Interval History
-
Date of Service: May 10, 2024
No chest pain or shortness of breath
Objective Data
-
Labs:
Laboratory Results
05/09/24 05/10/24 05/10/24
21:22 05:54 12:30
WBC 6.5
Hgb 17.5
Hct 50.9
Plt Count 164
PT 12.5
INR 0.91
APTT 26.2 51.8 H Pending
Sodium 137
Potassium 4.3
Chloride 105
Carbon Dioxide 27
BUN 20
Creatinine 0.8
Glucose 136 H
Calcium 9.2
Total Bilirubin 1.3
AST 16 L
ALT 26
Alkaline Phosphatase 78
Vital Signs:
Vital Signs
Temp Pulse Resp BP Pulse Ox
97.9 F 94 20 125/87 97
05/10/24 06:48 05/10/24 08:15 05/10/24 06:48 05/10/24 08:14 05/10/24 06:48
--- NOTE | 2024-05-10 11:30 | PTCARENOTE ---
Patient received from laborer sawmill. Assisted from stretcher to bed, denies lightheadedness or pain. NSR HR 60, BP 116/79, POX 97% on room air. Heparin infusing at 1700 units/hr. Call lares in reach
--- NOTE | 2024-05-10 13:29 | CM ---
Chart reviewed. Patient is independent of ADLS, lives with his son in a apartment, 3rd floor, 3 full flight of stairs, 0 DME. Plan is for the patient to return home. CM to follow
--- NOTE | 2024-05-10 13:31 | CM ---
Pricing on Xarelto. Patient does not have a current prescription plan. He is working with a mortgage broker on getting one, but does not have it yet. I notified Dr. Lopez and Inez Atkinson.
--- NOTE | 2024-05-10 15:34 | W.DCSUMMARY ---
Discharge Summary
Discharge Data
Date of Admission: 05/09/24
Date of Discharge: 05/10/24
-
Pending Results: No
Hospital Course
Patient is 63 years old male with history of CAD, A-fib, ischemic cardiomyopathy, hyperlipidemia, hypertension, pancreatitis, came into the hospital with A-fib RVR. Patient has been noncompliant with his medication prior to admission. Cardiology
was consulted. He was initiated on IV Cardizem drip and heparin drip. Patient underwent electrical cardioversion. He converted successfully to normal sinus rhythm. Cardiology recommended oral anticoagulation with Xarelto. They recommended to
continue beta-blockers and continue amlodipine but discontinue diltiazem. Also recommended to continue with home doses of sotalol. All medications reconciled by cardiology in their outpatient electronic records. Otherwise, patient is
hemodynamically stable and has remained in normal sinus rhythm. Cardiology cleared him for discharge. Patient will be discharged in stable condition today.
Discharge duration: 35 minutes
Discharge Plan
-
Patient Disposition: Home (Routine Discharge)
Discharge Diagnosis/Procedures: Paroxysmal atrial fibrillation.
Diet: Low Cholesterol
Activity: As tolerated
Blood Work: Please PCP to order CBC, BMP within 1 week
Referrals:
Inez Atkinson PA-C [Specified Professional Personl] - 05/31/24 10:20 am (You have a cardiology follow-up with Inez Atkinson PA-C on May 31 at 10:20 AM and [address] in [address] [facility]. If you are unable to make this appointment please call to sick
[phone] to reschedule)
Dileep Ortiz MD [Family Provider] -
Prescriptions:
New
Xarelto 20 mg tablet
20 mg PO DAILY Qty: 30 0RF
amlodipine 5 mg tablet
5 mg PO DAILY Qty: 30 0RF
Continued
ezetimibe 10 MG tablet
10 mg PO DAILY
atorvastatin 80 MG tablet
80 mg PO DAILY
lisinopril 40 mg Tablet
40 mg PO DAILY
sotalol 120 mg Tablet
120 mg PO BID Qty: 60 11RF
metoprolol succinate
100 mg PO DAILY
metoprolol succinate
50 mg PO HS
clonazepam [Klonopin] 1 mg Tablet
1 mg PO HS
Discontinued
Cardizem CD
120 mg PO DAILY
amlodipine
5 mg PO DAILY
Discharge Orders:
Discharge Patient (As Directed); Ordered 05/10/24
Ordered By: Lionel Lopez
Care Plan Goals
Care Plan Goals:
Problem: Readiness for enhanced knowledge related to diagnosis and treatment plan
Goal: Understand your diagnosis and treatment plan needs, including medications if applicable.
Instructions: Know your diagnosis, underlying causes and treatment plan options, including medications if applicable. Consult with your health care team to learn about your diagnosis and treatment plan, including medications if applicable.
Discharge Date and Time
Discharge Date/Time: 05/10/24 18:03
Print Language: SOMALI
[2024-05-10] MEDS: XARELTO 20 MG PO (17:44)
--- NOTE | 2024-05-10 18:01 | PTCARENOTE ---
Patient discharged to home. IV and telemetry removed. Discharge instructions reviewed, verbalized understanding. Son available to drive patient home today
== END 2024-05-10 18:03 | disposition home or self-care (01) | DRG 310 ==
LOC: IVU 23:42
PROVIDERS: Clinical Nurse Specialist Family Health; Emergency Medicine; Internal Medicine Cardiovascular Disease; ADMITTING PHYSICIAN Hospitalist; ATTENDING PHYSICIAN Hospitalist; EMERGENCY PHYSICIAN Emergency Medicine; FAMILY PHYSICIAN Family Medicine; OTHER PHYSICIAN Internal Medicine Cardiovascular Disease
PROC: B24BZZ4 Ultrasonography of Heart with Aorta, Transesophageal (ICD-10-PCS; 2024-05-10)
PROC: 5A2204Z Restoration of Cardiac Rhythm, Single (ICD-10-PCS; 2024-05-10)
DX: I48.0 Paroxysmal atrial fibrillation (principal); I10 Essential (primary) hypertension; I25.10 Atherosclerotic heart disease of native coronary artery without angina pectoris; I25.5 Ischemic cardiomyopathy; E78.00 Pure hypercholesterolemia, unspecified; E66.812 Obesity, class 2; G62.9 Polyneuropathy, unspecified; G89.29 Other chronic pain; M54.9 Dorsalgia, unspecified; I25.2 Old myocardial infarction; Z68.39 Body mass index [BMI] 39.0-39.9, adult; Z79.01 Long term (current) use of anticoagulants; Z79.899 Other long term (current) drug therapy; Z82.49 Family history of ischemic heart disease and other diseases of the circulatory system; Z91.148 Patient's other noncompliance with medication regimen for other reason; Z95.5 Presence of coronary angioplasty implant and graft
CPT/HCPCS: 71046; 80053; 80061; 83880; 84484; 85025; 85610; 85730; 92960; 93005; 93312; 93320; 93325; 94760; 96365; 96366; 96375; 99285

== ENCOUNTER 2024-07-10 12:33 | Inpatient (IN) | payer OTHER, SELFPAY ==
[2024-07-10] VITALS (17 sets, daily range): BP systolic 119–160; BP diastolic 89–124; BMI 39.5; BMI 38.0
--- NOTE | 2024-07-10 09:37 | ED.GENMED ---
History of Present Illness
General
Chief Complaint: Heart Rate Problem
Source: patient
Exam Limitations: none
Time Seen by Provider: 07/10/24 09:35
Nursing documentation reviewed up to this point in time: agreed with
History of Present Illness
History of Present Illness:
64-year-old male presents emergency department complaining of palpitations and rapid heart rate. He has a history of atrial fibrillation, and has been cardioverted multiple times. He has not taken his Xarelto for about 5 days. He follows with
[facility]. He denies chest pain. He did take his sotalol and metoprolol this morning.
Past History
Past History
ED Past Medical History: Arrthythmia (Atrial fibrillation), CAD, HTN, Hypercholesterolemia, MS (X 2) and Other (Back pain, Numbness in arms and legs)
ED Past Surgical History: Cardiac (Multiple stents) and Orthopedic (right knee surgery, Ulnar nerve removed Left elbow)
Social History
Tobacco: Non-smoker
Alcohol: Occasional
Drug: None
Personal:
Living: with family
Employment: Employed
Family History
Family History: Other (Mother with leukemia)
Review of Systems
Review of Systems
Allergies reviewed?: Yes
All Other Systems: Not applicable
Constitutional: Reports no symptoms
EENT: Reports no symptoms
Respiratory: Reports no symptoms; Denies trouble breathing
Cardiac: Reports palpitations; Denies chest pain
ABD/GI: Reports no symptoms
: Reports no symptoms
Musculoskeletal: Reports no symptoms
Skin: Reports no symptoms
Neurological: Reports no symptoms
Endocrine: Reports no symptoms
Hematologic/Lymphatic: Reports no symptoms
Psychiatric: Reports no symptoms
Phy Exam
Physical Exam
Physical Exam:
Physical Exam
General: no apparent distress, not acutely ill
Neck: supple. no meningeal signs. normal posterior pharynx
Heart: s1/s2 tachycardia, irregular rhythm , no murmur. equal radial
pulses.
HEENT: Pupils equal round reactive to light, EOMI
Lungs: no acute respiratory distress. clear bilaterally
Abdomen: normal bowel sounds. not tender. no CVAT
Neuro: alert and oriented. no focal neurological deficits cranial nerves II through XII intact
Skin: no rash
Psychiatric: well kept. interactive and cooperative
Extremities: no edema. no calf tenderness. negative homans. good distal pulses
Course
Orders/Labs/Results
Orders:
Orders
07/10/24 09:03
EKG [Electrocardiogram (*1)] Urgent
Reason for Study: Atrial Fibrillation
EKG- Treatment ONCE
07/10/24 09:42
Cardiac Monitoring- Treatment ONCE
IV Insert/Care/Rem.- Treatment PRN
Complete Blood Count/With Diff Urgent
Comprehensive Metabolic Panel Urgent
Magnesium Urgent
07/10/24 09:49
Diltiazem 125 mg/125 ml Nss [Cardizem] 125 mg in 125 ml IV NOW
Initial dose in mg/hr, then titrate:: 5
Titrate to keep:: Heart rate 80-100 bpm
Titrate by mg/hr:: 5 mg/hr
Frequency of titrations (minutes):: 15
Maximum dose in mg/hr:: 15
Diltiazem HCl [Cardizem] 10 mg IV NOW STA
07/10/24 09:52
Vital Signs- Treatment ONCE
Frequency: q30m
Comment: please weight patient
PTT Urgent
Comment: Obtain baseline before beginning heparin infusion if not already collected
Pharmacy Request to Place See Dose Instructions PO NOW STA
Discontinue all Active Warfarin orders?: Yes
Nursing to Place Non Medication Order As Directed
Physician Order: PTT 6 hours after initial start of Heparin infusion
07/10/24 10:[address] See Dose Instructions IV DIRECTED
Vital Signs
Initial and Last Documented VS:
Initial Vital Signs
Pulse Resp BP Pulse Ox
112 18 156/113 97
07/10/24 09:02 07/10/24 09:02 07/10/24 09:02 07/10/24 09:02
Last Documented Vital Signs
Pulse Resp BP Pulse Ox
112 18 156/113 97
07/10/24 09:02 07/10/24 09:02 07/10/24 09:02 07/10/24 09:02
MDM/Problems Addressed
Differential Diagnosis Includes:
Dysrhythmia
MDM/Problems Addressed:
64-year-old male with rapid atrial fibrillation, not anticoagulated. Will start heparin and diltiazem drip, admit to hospitalist.
Chronic conditions affecting care: Arrhythmia
Acute Exacerbation and/or Progression of Chronic Illness: Arrhythmia
*Pulse Oximetry
Patient hypoxic: no
*EKG
Interpreted by ED Provider?: Yes
EKG Intrepretation Date: 07/10/24
EKG Intrepretation Time: 09:06
Interpretation: abnormal
Comparison EKG: changes noted
Heart Rate: 108
Rate: tachycardiac
Rhythm: a-fib
[place]: normal axis
Interval: normal interval
QRS Pattern: other (LAFB)
Ischemia: no ischemia
*Block Cableman Interpretation
Rate: tachycardiac
Interpretation: abnormal
Heart Rate: 105
Rhythm: a-fib
*Critical Care Note
Total Time (30-74mins, 75-104mins- exclusive of procedures): 32
comment:
Critical care statement: A total of 31 minutes of critical care time was provided for this patient. This includes management of unstable vital signs, evaluation of the patient at bedside, reviewing the patient's pertinent medical records, discussion
with consultants, review of old EKGs and review of pertinent medical records. This time with separate from time utilized to perform the aforementioned documented procedures
Data Reviewed
Review of Other/Old Records Reveals: Testing (echocardiogram 06/05/23, EF 50-55%)
Source: records
Prescriptions/Medications Considered But Not Given:
Cardioversion not indicated at this time due to lack of anticoagulation
Patient Management
Social determinants of health affecting care: Living situation, Financial situation and Strong social support
Discussion with other providers: Hospitalist
Escalation/DeEscalation of care consider admission/obs:
Admission indicated
ED Attending Note
-
Portions of this chart may have been created with voice recognition software.� Occasional wrong word or��sound alike� substitutions may have occurred due to the inherent limitations of voice recognition software.
Discharge Plan
Departure
Admit to: IVU
Presentation/result/management discussed w/ accepting MD/DO: Hospitalist
Patient with high blood pressure during this ER visit?: Yes
Condition: Good
Discharge Problem:
Atrial fibrillation with rapid ventricular response
Prescriptions:
No Action
ezetimibe 10 MG tablet
10 mg PO DAILY
atorvastatin 80 MG tablet
80 mg PO DAILY
lisinopril 40 mg Tablet
40 mg PO DAILY
sotalol 120 mg Tablet
120 mg PO BID Qty: 60 11RF
metoprolol succinate
100 mg PO DAILY
metoprolol succinate
50 mg PO HS
clonazepam [Klonopin] 1 mg Tablet
1 mg PO HS
Xarelto 20 mg tablet
20 mg PO DAILY Qty: 30 0RF
amlodipine 5 mg tablet
5 mg PO DAILY Qty: 30 0RF
Referrals:
Dileep Ortiz MD [Family Provider] -
Interventions
Interventions:
*Risk Screen - Suicide Last Done: 07/10/24 09:02
*Neglect/Abuse Screening Last Done: 07/10/24 09:02
Discharge Date and Time
Print Language: GREENLANDIC
[2024-07-10] MEDS: CARDIZEM 10 MG IV (10:07)
[2024-07-10] MEDS: CARDIZEM 125 IV ×2 (10:15→19:46)
[2024-07-10 10:22] LABS: ALT (SGPT) 36 U/L (0-50); AST (SGOT) 18 U/L (17-59); Albumin 4.2 g/dl (3.5-5.0); Alkaline Phosphatase 76 U/L (38-126); Blood Urea Nitrogen 14 mg/dl (9-20); Calcium 8.9 mg/dl (8.4-10.2); Carbon Dioxide 26 mmol/L (22-30); Chloride 108 mmol/L (98-107); Estimated Creatinine Clearance > 125 ml/min; Glucose 138 mg/dl (70-99); Magnesium 1.9 mg/dl (1.6-2.3); Potassium 4.3 mmol/L (3.5-5.1); Sodium 139 mmol/L (135-145); Total Bilirubin 1.4 mg/dl (0.2-1.3); Total Protein 6.7 g/dl (6.3-8.2); eGFR > 60.00
[2024-07-10 10:28] LABS: % Basophils 0.4 % (0-2); % Eosinophils 3.9 % (0-6); % Immature Granulocytes 0.3 % (0-0.5); % Lymphocytes 12.6 % (20.5-51.1); % Monocytes 12.5 % (1.7-9.3); % Neutrophils 70.3 % (42.2-75.2); Absolute Eosinophils 0.3 10^3/uL (0-0.7); Absolute Lymphocytes 0.9 10^3/uL (1.2-3.4); Absolute Monocytes 0.9 10^3/uL (0.1-0.6); Absolute Neutrophils 4.9 10^3/uL (1.4-6.5); Hematocrit 47.4 % (39.0-52.0); Hemoglobin 16.8 g/dL (13.0-18.0); Mean Corp Hgb Conc. 35.4 g/dL (33.0-37.0); Mean Corpuscular Hgb 32.7 pg (27.0-31.0); Mean Corpuscular Volume 92.4 fL (80.0-94.0); Nucleated Red Blood Cells % 0 % (-); Platelet Count 161 10^3/uL (130-400); Red Blood Cell Count 5.13 10^6/uL (4.70-6.10); Red Cell Dist. Width 12.7 % (11.5-14.5)
--- NOTE | 2024-07-10 10:42 | CM ---
Patient seen at bedside in ED. Patient states that he lives in an apartment with his son on the 3rd floor. Patient stated that his PCP is Dr. Ortiz, he uses the pharmacy at [facility] in [place] and he has a medication coverage plan but the cost for
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 Patient stated he is unable to obtain samples any longer and has reviewed with manufacture that he does not qualify for the lower cost of the medication and he currently
is using good rx also. Patient stated his son brought him to the ED this am. Patient for admission to IVU per physician. CM will continue to follow for discharge planning needs.
PLan; home with son; watch for medication options/costs
[2024-07-10 10:49] LABS: APTT 26.9 Sec (23.4-35.0)
[2024-07-10] MEDS: HEPARIN 25000 UNITS/250 ML IV ×2 (10:57→23:44)
--- NOTE | 2024-07-10 11:57 | HPS.HSE ---
Family Physician
-
Family Physician: Dileep Ortiz
Chief Complaint
-
mild SOB, palpitations since 2 AM
History of Present Illness
64 y/o M, hx of CAD s/p multiple PCIs, Parox Afib (hx of Cardioversion), HLD, HTN, Obesity presents to ER For palpitations, mild SOB And tachycardia. Patient reports since began at 2 AM and are persistent. He took his Sotalol and Metoprolol early at
4 AM to try and break the rhythm. No improved and he presented to hospital, found to be in Rapid Afib with RVR. He denies any chest pain, fatigue. No other complaints.
ER provided Cardizem drip, IV Cardizem bolus and IV Heparin and admitted. DCA cards consulted - pt sees Dr. Fitzpatrick.
Medical History
Past Medical History
Past Medical History: Reports Other (hx of CAD s/p multiple PCIs, Parox Afib (hx of Cardioversion), HLD, HTN, Obesity)
Past Surgical History: Reports Other (Cardiac (Multiple coronary stents to LAD diagonal and RCA, multiple cardioversions) and Orthopedic (Arthroscopic right knee surgery, ulnar nerve removed from left elbow in March 2019))
Social History
Tobacco: Non-smoker
Alcohol: Occasional
Drug: None
Living: With Family
Employment: Retired
Family History
Family History: Not pertinent
Allergies / Home Medications
Allergies reflects when Allergies were last updated in blabfeed.
Home Medications with original date entered in blabfeed
Allergy/Medication List:
Allergies
Allergy/AdvReac Type Severity Reaction Status Date / Time
No Known Allergies Allergy Verified 02/26/24 07:19
Home Medications
atorvastatin 80 mg tablet 80 mg PO DAILY High cholesterol 05/11/20
ezetimibe 10 mg tablet 10 mg PO DAILY High cholesterol 05/11/20
lisinopril 40 mg tablet 40 mg PO DAILY Blood Pressure 06/04/23
sotalol 120 mg tablet 120 mg PO BID Arrhythmia #60 tabs 11/29/23
metoprolol succinate 50 mg PO HS 05/09/24
metoprolol succinate 100 mg PO DAILY 05/09/24
amlodipine 5 mg tablet 5 mg PO DAILY #30 tabs 05/10/24
clonazepam 1 mg tablet (Klonopin) 1 mg PO HS 05/10/24
rivaroxaban 20 mg tablet (Xarelto) 20 mg PO DAILY #30 tabs 05/10/24
Review of Systems
-
A 12 point ROS was completed and negative except as noted: Yes
Physical Exam
Vital Signs
Vital Signs
Pulse Resp BP Pulse Ox
91 22 131/93 97
07/10/24 10:45 07/10/24 10:45 07/10/24 10:12 07/10/24 11:05
Physical Exam
General: No Apparent Distress
HEENT: NormoCephalic and Anicteric
Respiratory: Clear; No Wheezes
Cardiac: Irregular Rhythm and Tachycardia
GI: Soft and Non Tender
Musculoskeletal: Other (trace edema bilateral legs)
Neuro: AO x 3
Hematologic/Lymphatic: No Lymphadenopathy
Psych: Calm
Laboratory Results
-
07/10/24 10:04
07/10/24 10:04
Laboratory Results
APTT 26.9 Sec (23.4-35.0) 07/10/24 10:04
Total Bilirubin 1.4 mg/dl (0.2-1.3) H 07/10/24 10:04
AST 18 U/L (17-59) 07/10/24 10:04
ALT 36 U/L (0-50) 07/10/24 10:04
Alkaline Phosphatase 76 U/L (38-126) 07/10/24 10:04
Data Reviewed
-
Medical Tests (Nuc Med, Echo, EKG etc): Report Reviewed by me and Discussed with Patient
Lab Data: Labs Reviewed by me
Impression/Plan
-
Assessment:
Paroxysmal atrial fibrillation with RVR
- continue IV Cardizem drip
- continue Sotalol/BB
- continue IV Heparin drip. Of note, patient missed 5 days of Xarelto due to cost issues
- consider Cardioversion
- DCA cards
CAD/IA x 2, -RCA stent 2008, LAD stent, first diagonal stent 05/06/2017
Essential HTN, multi-drug regimen
- continue Statin/BB/ALBERTO/CCB
HLD - statin/Zetia
History of recurrent pancreatitis
Class II Obesity due to excess calories
DVT ppx: IV Heparin
Code: Full
--- NOTE | 2024-07-10 12:23 | CON.CAR ---
Addendum entered and electronically signed by Car Martinez DO 07/10/24 14:07:
I saw and examined the patient.
The Electrical Instrument Technician's note was reviewed and I agree with the note.
Comment:
Plan:
HPI: Patient is a 64-year-old male with past medical history of CAD status post multiple stents, recovered ischemic cardiomyopathy, paroxysmal atrial fibrillation, hyperlipidemia, hypertension and noncompliance. He was last here in April 2024 after
he awoke with palpitations in the middle the night. He underwent CLEVE/cardioversion. he has been taking Sotalol and Toprol. 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 He was doing well until yesterday when he started noting intermittent palpitations and fluttering. Last night he awoke around 2 AM from sleep with a feeling of his heart racing. When symptoms persisted this morning he came to [facility]
and was in atrial fibrillation with RVR. He was started on IV Cardizem drip and IV Heparin gtt. He denies chest discomfort, lower extremity edema, abdominal bloating, orthopnea. He does admit to having 1 whiskey's hour last evening but otherwise
denies excessive alcohol use, increased caffeine or fwub-mgw-nokyjit supplements.
At time of this evaluation he does continue to feel palpitations but denies chest pain, shortness of breath, dizziness or lightheadedness. Patient's heart rate now improved with IV diltiazem and drip and IV heparin
Continue IV heparin and transition back to Xarelto.
Continue IV Cardizem and oral metoprolol for rate control.
If he fails to convert spontaneously, he could be considered for CLEVE/cardioversion prior to discharge.
Resume sotalol prior to discharge.
He may ultimately benefit from PVI but needs to continue to be compliant with anticoagulation. Outpatient EP consultation.
We discussed that he may have sleep apnea and that he should be considered for outpatient sleep study. He says that he does not snore. Discussed that untreated sleep apnea would put him at elevated risk for recurrent atrial fibrillation.
Recent CLEVE with preserved LV function April 2024.
Continue statin and Zetia for hyperlipidemia.
He takes metoprolol amlodipine and lisinopril for hypertension as an outpatient.
Discussed with primary service.
Compliance with medications and follow-up has been discussed. He has missed several follow-ups.
Original Note:
Consultation
Consultation Request
Date/Time Consultation Requested: 07/10/2024
Date/Time Consultation Performed: 07/10/2024
Requesting Provider: Dr. Baird
Performing Provider: Inez Atkinson PA-C for Dr. Martinez
Reason for Consultation: A-fib with rapid ventricular response
Medical History
-
History of Present Illness:
Patient is a 64-year-old male with past medical history of CAD status post multiple stents, recovered ischemic cardiomyopathy, paroxysmal atrial fibrillation, hyperlipidemia, hypertension and noncompliance. He was last here in April 2024 after he
awoke with palpitations in the middle the night. He underwent CLEVE/cardioversion. he has been taking Sotalol and Toprol. 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 He was doing well until yesterday when he started noting intermittent palpitations and fluttering. Last night he awoke around 2 AM from sleep with a feeling of his heart racing. When symptoms persisted this morning he came to [facility]
and was in atrial fibrillation with RVR. He was started on IV Cardizem drip and IV Heparin gtt. He denies chest discomfort, lower extremity edema, abdominal bloating, orthopnea. He does admit to having 1 whiskey's hour last evening but otherwise
denies excessive alcohol use, increased caffeine or qrjd-zdw-rrebsjo supplements.
At time of this evaluation he does continue to feel palpitations but denies chest pain, shortness of breath, dizziness or lightheadedness. Patient's heart rate now improved with IV diltiazem and drip and IV heparin
PMH:
Paroxysmal atrial fibrillation
Has failed amiodarone and sotalol
Multiple cardioversions
Chronic OAC with xarelto
History of CAD/OH with multiple PCIs:
LAD August 2017
LCX/mid LAD April 2017
Diagonal February 2017
Mid RCA August 2008
Recovered ischemic cardiomyopathy with last EF 50-55% 05/2023, EF preserved on CLEVE November 2023
Hyperlipidemia
History of recurrent pancreatitis
Hypertension
Obesity
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
History of right lower leg fracture
Noncompliance due to insurance issues
Past Medical History
Past Medical History: Other (in HPI)
Past Surgical History: Cardiac (Multiple coronary stents to LAD diagonal and RCA, multiple cardioversions) and Orthopedic (Arthroscopic right knee surgery, ulnar nerve removed from left elbow in March 2019)
Social History
Tobacco: Non-Smoker
Alcohol: Occasional (Few beers or glass of wine on the weekend)
Drug: None
Living: With Family (Son)
Employment: Retired
Family History
Family History: CAD
Allergies / Home Medications
Allergy/AdvReac Type Severity Reaction Status Date / Time
No Known Allergies Allergy Verified 02/26/24 07:19
�Medication �Instructions �Recorded �Confirmed �Type
atorvastatin 80 mg tablet 80 mg PO DAILY High cholesterol 05/11/20 07/10/24 History
ezetimibe 10 mg tablet 10 mg PO DAILY High cholesterol 05/11/20 07/10/24 History
lisinopril 40 mg tablet 40 mg PO DAILY Blood Pressure 06/04/23 07/10/24 History
sotalol 120 mg tablet 120 mg PO BID Arrhythmia #60 tabs 11/29/23 07/10/24 Rx
metoprolol succinate 100 mg 100 mg PO DAILY ##0 05/09/24 07/10/24 History
tablet,extended release 24 hr
(Toprol XL)
metoprolol succinate 50 mg 50 mg PO QPM ##0 05/09/24 07/10/24 History
tablet,extended release 24 hr
(Toprol XL)
amlodipine 5 mg tablet 5 mg PO DAILY #30 tabs 05/10/24 07/10/24 Rx
clonazepam 1 mg tablet (Klonopin) 1 mg PO HSPRN PRN sleep 05/10/24 07/10/24 History
acetaminophen 500 mg tablet 500 mg PO Q6HPRN PRN mild pain 07/10/24 07/10/24 History
(Tylenol Extra Strength)
rivaroxaban 20 mg tablet (Xarelto) 20 mg PO QPM 07/10/24 07/10/24 History
Review of Systems
-
History Source: Patient
All other systems: Negative unless noted
Physical Exam
Vital Signs
Pulse Resp BP Pulse Ox
93 17 160/113 96
07/10/24 12:00 07/10/24 12:00 07/10/24 12:00 07/10/24 12:00
GEN: No distress, awake, Ox3
HEENT: supple, anicteric, mmm
LUNGS: CTA, no wheezes/rales
CV: Irregularly irregular, tachycardic , S1/S2, no murmur, rub or gallop
ABD: soft, BS+, NT/ND
EXT: No edema, clubbing or cyanosis
NEURO: Gross non-focal
SKIN: No rash, warm, dry,
Lab Results
07/10/24 10:04
07/10/24 10:04
Impression / Plan
-
PCP: Dileep Ortiz
Primary Director [facility]: Dr. Fitzpatrick
Impression:
Presented 07/10/2024 with palpitations, tachycardia
Paroxysmal atrial fibrillation RVR
Chronic OAC, reports could not afford and has been off anticoagulation for the last 4 days
Paroxysmal atrial fibrillation
Status post CLEVE cardioversion 05/10/2024, CLEVE/cardioversion 11/28/2023, CLEVE cardioversion 09/05/2020
Has failed amiodarone and sotalol
History of CAD/OH with multiple PCIs:
LAD August 2017
LCX/mid LAD April 2017
Diagonal February 2017
Mid RCA August 2008
Recovered ischemic cardiomyopathy with last EF 50-55% 05/2023 and CLEVE 11/2023
Hyperlipidemia
History of recurrent pancreatitis
Hypertension
Obesity
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
History of right lower leg fracture
Noncompliance due to insurance issues
CLEVE 05/10/2024: EF 55 to 60%, mild MR, mild TR, mildly dilated aortic root at 4.0 cm. No left atrial appendage thrombus
ECHO 06/05/2023: Definity used, EF 50 to 55%, mild mid to distal apical septal hypokinesis, no significant valve disease, mildly dilated aortic root and ascending aorta
CLEVE 11/28/2023: EF 50 to 55%. No significant valvular disease. No left atrial appendage thrombus. Mildly enlarged aortic root (4.0 cm). Mildly enlarged ascending aorta (4.2 cm).
Lexiscan nuclear stress test 10/02/2023: Fixed defect in apical anterior segment consistent with infarction, EF 56%
Plan:
-Presented 07/10/2024 with palpitations, tachycardia and found to be in atrial fibrillation with rapid ventricular response
-Heart rates better controlled with IV diltiazem drip 15 mg/hr
-Currently on heparin drip As patient ran out of Xarelto 4 days ago. Eventual resumption of Xarelto which is more cost effective than Eliquis
-Continue sotalol and Toprol. Patient was given an extra 100 mg of metoprolol in emergency department
-If patient fails to convert to sinus rhythm we will proceed with CLEVE cardioversion on 07/13/2024
-Given multiple recurrences of PAF discussed with patient he would likely benefit from ablation. He is agreeable. Electrophysiology consultation can be arranged as outpatient
Known CAD with multiple coronary stents. Denies chest pain and no evidence of ischemia on EKG. Continue atorvastatin, Zetia, amlodipine, metoprolol
-Continue metoprolol, lisinopril and amlodipine for hypertension
-Hyperlipidemia continue atorvastatin, Zetia
Once again discussed importance of compliance of taking his medications without interruption particularly his anticoagulation. Patient understands risk of stroke while off anticoagulation.
Plan discussed with patient, nursing, hospitalist
[facility] 07/10/24
Patient is a 64-year-old male with past medical history of CAD status post multiple stents, recovered ischemic cardiomyopathy, paroxysmal atrial fibrillation, hyperlipidemia, hypertension and noncompliance. He was last here in April 2024 after he
awoke with palpitations in the middle the night. He underwent CLEVE/cardioversion. he has been taking Sotalol and Toprol. 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 He was doing well until yesterday when he started noting intermittent palpitations and fluttering. Last night he awoke around 2 AM from sleep with a feeling of his heart racing. When symptoms persisted this morning he came to [facility]
and was in atrial fibrillation with RVR. He was started on IV Cardizem drip and IV Heparin gtt. He denies chest discomfort, lower extremity edema, abdominal bloating, orthopnea. He does admit to having 1 whiskey's hour last evening but otherwise
denies excessive alcohol use, increased caffeine or kbnm-fkb-tvmnbli supplements.
At time of this evaluation he does continue to feel palpitations but denies chest pain, shortness of breath, dizziness or lightheadedness. Patient's heart rate now improved with IV diltiazem and drip and IV heparin
Data Reviewed
-
EKG: Report Reviewed by me, Discussed with Physician, Discussed with Nurse and Discussed with Patient
Labs: Labs Reviewed by me, Discussed with Physician and Discussed with Patient
Old Records: Reviewed
[2024-07-10] MEDS: TOPROL XL PO (13:41)
[2024-07-10] MEDS: TOPROL XL 100 MG PO (13:45)
[2024-07-10 17:38] LABS: APTT 44.8 Sec (23.4-35.0)
--- NOTE | 2024-07-10 19:17 | PTCARENOTE ---
~1445: Handoff report received from ED RN. Patient transfered to IVU via stretcher. Upon arrival, cardizem gtt @15 and heparin gtt at 15. HR 90s-100s while at rest and 110s-120s while ambulating in Afib. BP 150/115, cardiology made aware. Patient
satting mid to high 90s on RA. Pt denies pain at this time. Admission questions completed and patient oriented to room and call lares system. All needs met at this time, call lares within reach.
~[id number]: Discussed orders with Dr. Martinez. Per cardiology, metoprolol xl 100mg to be given tomorrow morning and metoprolol xl 50mg to be given tonight st 2200. Cardizem gtt weaned to 10 to maintain HR goal. Per Dr. Martinez, cardizem gtt will remain
on until tomorrow. pt does not c/o pain at this time, VSS, still Afib on tele 80s-100s. PTT drawn and heparin gtt titrated per protocol. All needs met a this time, call lares within reach. Handoff report given to nightshift RN.
[2024-07-10] MEDS: BETAPACE 120 MG PO (19:46)
--- NOTE | 2024-07-10 20:25 | PTCARENOTE ---
Patient received at change of shift resting in the bed. Heparin gtt infusing at 1700units/hr. Diltiazem gtt infusing at 10mg/hr. Patient denies pain but endorses occasional dyspnea on exertion and palpitations. Patient overall appears flushed but
reports feeling okay. Atrial fibrillation on the monitor. Oxygen saturation 96% on room air. Call lares within reach. Care ongoing. Plan of care discussed.
[2024-07-10] MEDS: TOPROL XL 50 MG PO (21:25)
[2024-07-10] MEDS: KLONOPIN 1 MG PO (21:25)
[2024-07-11] VITALS (8 sets, daily range): BP systolic 131–144; BP diastolic 80–96; BMI 37.9
[2024-07-11 00:36] LABS: APTT 67.8 Sec (23.4-35.0)
[2024-07-11 06:47] LABS: Hematocrit 50.9 % (39.0-52.0); Hemoglobin 17.3 g/dL (13.0-18.0); Mean Corpuscular Hgb 32.1 pg (27.0-31.0); Mean Corpuscular Volume 94.4 fL (80.0-94.0); Mean Platelet Volume 9.7 fL (7.4-10.4); Platelet Count 144 10^3/uL (130-400); Red Blood Cell Count 5.39 10^6/uL (4.70-6.10); Red Cell Dist. Width 12.7 % (11.5-14.5)
[2024-07-11 06:56] LABS: APTT 87.3 Sec (23.4-35.0)
[2024-07-11 08:19] LABS: Blood Urea Nitrogen 14 mg/dl (9-20); Calcium 8.9 mg/dl (8.4-10.2); Carbon Dioxide 24 mmol/L (22-30); Chloride 108 mmol/L (98-107); Estimated Creatinine Clearance > 125 ml/min; Glucose 138 mg/dl (70-99); Potassium 4.3 mmol/L (3.5-5.1); Sodium 138 mmol/L (135-145); eGFR > 60.00
[2024-07-11] MEDS: CARDIZEM 125 IV ×2 (09:20→21:56)
[2024-07-11] MEDS: LIPITOR 80 MG PO (09:21)
[2024-07-11] MEDS: BETAPACE 120 MG PO (09:21)
[2024-07-11] MEDS: TOPROL XL 100 MG PO (09:21)
[2024-07-11] MEDS: ZETIA 10 MG PO (09:22)
[2024-07-11] MEDS: ZESTRIL 40 MG PO (09:22)
[2024-07-11] MEDS: NORVASC 5 MG PO (09:22)
--- NOTE | 2024-07-11 09:38 | W.PN.CARDCBS ---
Today's Communication / Plan
-
Continue IV heparin and transition back to Xarelto.
Continue IV Cardizem and oral metoprolol for rate control.
If he fails to convert spontaneously, he could be considered for CLEVE/cardioversion prior to discharge.
Resume sotalol prior to discharge.
He may ultimately benefit from PVI but needs to continue to be compliant with anticoagulation. Outpatient EP consultation.
Impression / Plan
-
.
PCP: Dileep Ortiz
Primary Edge Cutting Machine Operator: Dr. Fitzpatrick
Impression:
Presented 07/10/2024 with palpitations, tachycardia
Paroxysmal atrial fibrillation RVR
Chronic OAC, reports could not afford and has been off anticoagulation for the last 4 days
Paroxysmal atrial fibrillation
Status post CLEVE cardioversion 05/10/2024, CLEVE/cardioversion 11/28/2023, CLEVE cardioversion 09/05/2020
Has failed amiodarone and sotalol
History of CAD/SC with multiple PCIs:
LAD August 2017
LCX/mid LAD April 2017
Diagonal February 2017
Mid RCA August 2008
Recovered ischemic cardiomyopathy with last EF 50-55% 05/2023 and CLEVE 11/2023
Hyperlipidemia
History of recurrent pancreatitis
Hypertension
Obesity
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
History of right lower leg fracture
Noncompliance due to insurance issues
CLEVE 05/10/2024: EF 55 to 60%, mild MR, mild TR, mildly dilated aortic root at 4.0 cm. No left atrial appendage thrombus
ECHO 06/05/2023: Definity used, EF 50 to 55%, mild mid to distal apical septal hypokinesis, no significant valve disease, mildly dilated aortic root and ascending aorta
CLEVE 11/28/2023: EF 50 to 55%. No significant valvular disease. No left atrial appendage thrombus. Mildly enlarged aortic root (4.0 cm). Mildly enlarged ascending aorta (4.2 cm).
Lexiscan nuclear stress test 10/02/2023: Fixed defect in apical anterior segment consistent with infarction, EF 56%
Plan:
HPI: Patient is a 64-year-old male with past medical history of CAD status post multiple stents, recovered ischemic cardiomyopathy, paroxysmal atrial fibrillation, hyperlipidemia, hypertension and noncompliance. He was last here in April 2024 after
he awoke with palpitations in the middle the night. He underwent CLEVE/cardioversion. he has been taking Sotalol and Toprol. 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 He was doing well until yesterday when he started noting intermittent palpitations and fluttering. Last night he awoke around 2 AM from sleep with a feeling of his heart racing. When symptoms persisted this morning he came to [facility]
and was in atrial fibrillation with RVR. He was started on IV Cardizem drip and IV Heparin gtt. He denies chest discomfort, lower extremity edema, abdominal bloating, orthopnea. He does admit to having 1 whiskey's hour last evening but otherwise
denies excessive alcohol use, increased caffeine or [id number]-[id number] supplements.
At time of this evaluation he does continue to feel palpitations but denies chest pain, shortness of breath, dizziness or lightheadedness. Patient's heart rate now improved with IV diltiazem and drip and IV heparin
Continue IV heparin and transition back to Xarelto.
Continue IV Cardizem and oral metoprolol for rate control.
If he fails to convert spontaneously, he could be considered for CLEVE/cardioversion prior to discharge.
Resume sotalol prior to discharge.
He may ultimately benefit from PVI but needs to continue to be compliant with anticoagulation. Outpatient EP consultation.
We discussed that he may have sleep apnea and that he should be considered for outpatient sleep study. He says that he does not snore. Discussed that untreated sleep apnea would put him at elevated risk for recurrent atrial fibrillation.
Recent CLEVE with preserved LV function April 2024.
Continue statin and Zetia for hyperlipidemia.
He takes metoprolol amlodipine and lisinopril for hypertension as an outpatient.
Compliance with medications and follow-up has been discussed. He has missed several follow-ups.
Plan discussed with nursing
[facility] 07/10/24
Patient is a 64-year-old male with past medical history of CAD status post multiple stents, recovered ischemic cardiomyopathy, paroxysmal atrial fibrillation, hyperlipidemia, hypertension and noncompliance. He was last here in April 2024 after he
awoke with palpitations in the middle the night. He underwent CLEVE/cardioversion. he has been taking Sotalol and Toprol. 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 He was doing well until yesterday when he started noting intermittent palpitations and fluttering. Last night he awoke around 2 AM from sleep with a feeling of his heart racing. When symptoms persisted this morning he came to [facility]
and was in atrial fibrillation with RVR. He was started on IV Cardizem drip and IV Heparin gtt. He denies chest discomfort, lower extremity edema, abdominal bloating, orthopnea. He does admit to having 1 whiskey's hour last evening but otherwise
denies excessive alcohol use, increased caffeine or [id number] supplements.
At time of this evaluation he does continue to feel palpitations but denies chest pain, shortness of breath, dizziness or lightheadedness. Patient's heart rate now improved with IV diltiazem and drip and IV heparin
Progress Note - Edge Cutting Machine Operator
Subjective
Date of Service: July 11, 2024
Pt seen and examined. No cp or dyspnea
Objective
Labs:
07/11/24 06:30
07/11/24 07:37
Labs
Hgb 17.3 g/dL (13.0-18.0) 07/11/24 06:30
Hct 50.9 % (39.0-52.0) 07/11/24 06:30
Plt Count 144 10^3/uL (130-400) 07/11/24 06:30
APTT 87.3 Sec (23.4-35.0) H 07/11/24 06:30
Sodium 138 mmol/L (135-145) 07/11/24 07:37
Potassium 4.3 mmol/L (3.5-5.1) 07/11/24 07:37
BUN 14 mg/dl (9-20) 07/11/24 07:37
Creatinine 0.8 mg/dL (0.7-1.3) 07/11/24 07:37
Glucose 138 mg/dl (70-99) H 07/11/24 07:37
Vital Signs and I&O:
Vital Signs
Temp Pulse Resp BP Pulse Ox
98.6 F 86 20 141/90 95
07/11/24 08:03 07/11/24 09:22 07/11/24 08:03 07/11/24 09:22 07/11/24 08:03
Vital Signs
Temp Pulse Resp BP Pulse Ox
98.6 F 86 20 141/90 95
07/11/24 08:03 07/11/24 09:22 07/11/24 08:03 07/11/24 09:22 07/11/24 08:03
Intake & Output
07/09/24 07/10/24 07/11/24 07/12/24
06:59 06:59 06:59 06:59
Intake Total 329 / 329
Balance 329 / 329
Physical Exam
Physical Exam
General: No acute distress, AAOX3
Neck: Negative JVD
Heart: Irregularly irregular, Negative S3 positive S1/S2, Negative S4, No murmur
Lungs: CTA b/l, negative wheezes/rales/rhonchi
Abd: Positive BS, NT/ND, neg rebound/rigidity/guarding
Ext: Negative cyanosis/clubbing/edema
Neuro: nonfocal
--- NOTE | 2024-07-11 11:37 | W.PN.HOSP.TC ---
Today's Communication/Plan
-
see plan
Assessment / Plan
Assessment / Plan
Gen: NAD, AAOx3.
Eyes: EOMI, PERRLA, no scleral icterus.
Neck: supple.
CV: irreg/irreg, +S1/S2, no m/r/g.
Resp: CTAB, no rales, wheezes, or rhonchi.
Abd: +BS, soft, NT, ND
Skin: No rashes.
Neuro: CN 2-12 intact, non-focal.
Psych: Normal mood and affect.
Paroxysmal atrial fibrillation with RVR:
-cont IV Cardizem gtt
-cont BB
-cont IV Heparin drip. Of note, patient missed 5 days of Xarelto due to cost issues. Sotalol now stopped.
-cards following
-for TEECV 07/13/24
Other problems:
CAD with h/o [place] x 2 and multiple stents:
Essential HTN: cont Norvasc/ACEi/BB
HLD: Cont statin/Zetia
h/o recurrent pancreatitis
Obesity due to excess calories
FULL/Heparin
Anticipated Discharge: > 48 hours
Subjective/Interval History
-
Date of Service: July 11, 2024
Denies CP/SOB.
Objective Data
-
Labs:
Laboratory Results
07/11/24 07/11/24 07/11/24
00:09 06:30 07:37
WBC 8.0
Hgb 17.3
Hct 50.9
Plt Count 144
APTT 67.8 H 87.3 H
Sodium Cancelled 138
Potassium Cancelled 4.3
Chloride Cancelled 108 H
Carbon Dioxide Cancelled 24
BUN Cancelled 14
Creatinine Cancelled 0.8
Glucose Cancelled 138 H
Calcium Cancelled 8.9
07/11/24
12:30
WBC
Hgb
Hct
Plt Count
APTT Pending
Sodium
Potassium
Chloride
Carbon Dioxide
BUN
Creatinine
Glucose
Calcium
Vital Signs:
Vital Signs
Temp Pulse Resp BP Pulse Ox
98.4 F 111 20 141/90 96
07/11/24 10:55 07/11/24 10:15 07/11/24 10:55 07/11/24 09:22 07/11/24 10:55
I&O
07/10/24 07/11/24 07/12/24
06:59 06:59 06:59
Intake Total 329 / 329
Balance 329 / 329
[2024-07-11] MEDS: HEPARIN 25000 UNITS/250 ML IV (12:21)
--- NOTE | 2024-07-11 19:00 | PTCARENOTE ---
~4961-7763: Handoff report received from nightshift RN. Pt AOx4, Afib 80s-100s on tele, SBP 140s, RA satting >90%. Patient denies pain at this time. + pulses and trace BLE edema present. Heparin gtt and cardizem gtt infusing per protocol. All needs
met at this time, call lares within reach.
~9622-4396: Patient in room in stable condition. Independent to bathroom. Heparin and cardizem gtt infusing per order. HR 80s-100s Afib. PTT restuled 76.0, therapeutic at this time. Next PTT ordered for tomorrow morning per protocol. All needs met
at this time, call lares within reach.
~6175-1054: Patient stable in room. Fammily visted briefly. Pt does not c/o pain at this time. Remains in Afib 80s-100s on cardizem and heparin gtts, VSS. All needs met at this time, call lares within reach.
[2024-07-11] MEDS: TOPROL XL 50 MG PO (21:53)
[2024-07-11] MEDS: KLONOPIN 1 MG PO (21:53)
--- NOTE | 2024-07-11 23:45 | PTCARENOTE ---
Patient received at change of shift out of bed ambulating. Heparin gtt infusing at 1800units/hr. Diltiazem gtt infusing at 10mg/hr. Atrial fibrillation on the monitor. Oxygen saturation 97% on room air. Patient denies pain. Endorses palpitations.
Endorses occasional dyspnea on exertion. Reports urinary frequency but reports no other genitourinary abnormalities, the patient attributes this to the amount of IV medications he is receiving. Plan of care discussed with patient. Call lares within
reach. Care ongoing.
[2024-07-12] VITALS (9 sets, daily range): BP systolic 127–159; BP diastolic 83–104; BMI 37.7
[2024-07-12] MEDS: HEPARIN 25000 UNITS/250 ML IV ×2 (02:25→16:15)
[2024-07-12 03:22] LABS: APTT 80.9 Sec (23.4-35.0)
[2024-07-12] MEDS: ZESTRIL 40 MG PO (08:37)
[2024-07-12] MEDS: NORVASC 5 MG PO (08:37)
[2024-07-12] MEDS: TOPROL XL 100 MG PO (08:37)
[2024-07-12] MEDS: LIPITOR 80 MG PO (08:37)
[2024-07-12] MEDS: ZETIA 10 MG PO (08:38)
[2024-07-12] MEDS: CARDIZEM 125 IV ×2 (10:31→22:58)
--- NOTE | 2024-07-12 10:37 | W.PN.HOSP.TC ---
Today's Communication/Plan
-
see plan
Assessment / Plan
Assessment / Plan
Gen: NAD, AAOx3.
Eyes: EOMI, PERRLA, no scleral icterus.
Neck: supple.
CV: Remains irreg/irreg, +S1/S2, no m/r/g.
Resp: CTAB anteriorly, no rales, wheezes, or rhonchi.
Abd: +BS, soft, NT, ND
Skin: No rashes.
Neuro: CN 2-12 intact, non-focal.
Psych: Normal mood and affect.
Paroxysmal atrial fibrillation with RVR:
-cont IV Cardizem gtt
-cont BB
-cont IV Heparin drip. Of note, patient missed 5 days of Xarelto due to cost issues. Sotalol now stopped.
-cards following
-for TEECV 07/13/24
Other problems:
CAD with h/o [place] x 2 and multiple stents: cont BB/statin
Essential HTN: cont Norvasc/ACEi/BB
HLD: Cont statin/Zetia
h/o recurrent pancreatitis
Obesity due to excess calories
FULL/Heparin
Anticipated Discharge: 24 - 48 hours
Subjective/Interval History
-
Date of Service: July 12, 2024
Denies chest pain or shortness of breath.
Objective Data
-
Labs:
Laboratory Results
07/12/24
02:34
APTT 80.9 H
Vital Signs:
Vital Signs
Temp Pulse Resp BP Pulse Ox
98.9 F 82 20 139/104 98
07/12/24 07:41 07/12/24 09:30 07/12/24 07:41 07/12/24 08:37 07/12/24 07:42
I&O
07/11/24 07/12/24 07/13/24
06:59 06:59 06:59
Intake Total 329 / 329 336 / 336
Output Total 600 / 600
Balance 329 / 329 -264 / -264
--- NOTE | 2024-07-12 12:14 | W.PN.CARDCBS ---
Today's Communication / Plan
-
Continue diltiazem for rate control of A-fib
Tentative plan for CLEVE/direct-current cardioversion in a.m.
Impression / Plan
-
PCP: Dileep Ortiz
Primary Workforce Development Program Director: Dr. Fitzpatrick
Impression:
Presented 07/10/2024 with palpitations, tachycardia
Paroxysmal atrial fibrillation RVR
Chronic OAC, reports could not afford and has been off anticoagulation for the last 4 days
Paroxysmal atrial fibrillation
Status post CLEVE cardioversion 05/10/2024, CLEVE/cardioversion 11/28/2023, CLEVE cardioversion 09/05/2020
Has failed amiodarone and sotalol
History of CAD/AL with multiple PCIs:
LAD August 2017
LCX/mid LAD April 2017
Diagonal February 2017
Mid RCA August 2008
Recovered ischemic cardiomyopathy with last EF 50-55% 05/2023 and CLEVE 11/2023
Hyperlipidemia
History of recurrent pancreatitis
Hypertension
Obesity
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
History of right lower leg fracture
Noncompliance due to insurance issues
CLEVE 05/10/2024: EF 55 to 60%, mild MR, mild TR, mildly dilated aortic root at 4.0 cm. No left atrial appendage thrombus
ECHO 06/05/2023: Definity used, EF 50 to 55%, mild mid to distal apical septal hypokinesis, no significant valve disease, mildly dilated aortic root and ascending aorta
CLEVE 11/28/2023: EF 50 to 55%. No significant valvular disease. No left atrial appendage thrombus. Mildly enlarged aortic root (4.0 cm). Mildly enlarged ascending aorta (4.2 cm).
Lexiscan nuclear stress test 10/02/2023: Fixed defect in apical anterior segment consistent with infarction, EF 56%
Plan:
HPI: Patient is a 64-year-old male with past medical history of CAD status post multiple stents, recovered ischemic cardiomyopathy, paroxysmal atrial fibrillation, hyperlipidemia, hypertension and noncompliance. He was last here in April 2024 after
he awoke with palpitations in the middle the night. He underwent CLEVE/cardioversion. he has been taking Sotalol and Toprol. 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 He was doing well until yesterday when he started noting intermittent palpitations and fluttering. Last night he awoke around 2 AM from sleep with a feeling of his heart racing. When symptoms persisted this morning he came to [facility]
and was in atrial fibrillation with RVR. He was started on IV Cardizem drip and IV Heparin gtt. He denies chest discomfort, lower extremity edema, abdominal bloating, orthopnea. He does admit to having 1 whiskey's hour last evening but otherwise
denies excessive alcohol use, increased caffeine or cgan-eyj-htbjjup supplements.
At time of this evaluation he does continue to feel palpitations but denies chest pain, shortness of breath, dizziness or lightheadedness. Patient's heart rate now improved with IV diltiazem and drip and IV heparin
Continue IV heparin with eventual transition back to Xarelto
Continue IV Cardizem and oral metoprolol for rate control, goal HR <110 bpm
If he fails to convert spontaneously, plan for CLEVE/cardioversion prior to discharge.
Resume sotalol prior to discharge.
He may ultimately benefit from PVI but needs to continue to be compliant with anticoagulation. Outpatient EP consultation.
May have sleep apnea and that he should be considered for outpatient sleep study. He says that he does not snore. Discussed that untreated sleep apnea would put him at elevated risk for recurrent atrial fibrillation.
Recent CLEVE with preserved LV function April 2024.
Continue statin and Zetia for hyperlipidemia.
He takes metoprolol, amlodipine and lisinopril for hypertension as an outpatient.
Compliance with medications and follow-up has been discussed. He has missed several follow-ups.
HPI 07/10/24
Patient is a 64-year-old male with past medical history of CAD status post multiple stents, recovered ischemic cardiomyopathy, paroxysmal atrial fibrillation, hyperlipidemia, hypertension and noncompliance. He was last here in April 2024 after he
awoke with palpitations in the middle the night. He underwent CLEVE/cardioversion. he has been taking Sotalol and Toprol. 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 He was doing well until yesterday when he started noting intermittent palpitations and fluttering. Last night he awoke around 2 AM from sleep with a feeling of his heart racing. When symptoms persisted this morning he came to [facility]
and was in atrial fibrillation with RVR. He was started on IV Cardizem drip and IV Heparin gtt. He denies chest discomfort, lower extremity edema, abdominal bloating, orthopnea. He does admit to having 1 whiskey's hour last evening but otherwise
denies excessive alcohol use, increased caffeine or qubp-ndn-vgodtlg supplements.
At time of this evaluation he does continue to feel palpitations but denies chest pain, shortness of breath, dizziness or lightheadedness. Patient's heart rate now improved with IV diltiazem and drip and IV heparin
Progress Note - Workforce Development Program Director
Subjective
Date of Service: July 12, 2024
No acute overnight events. No cardiac complaints. Patient resting comfortably in the IVU. Heart rates better controlled on diltiazem drip at 10.
Objective
Labs:
07/11/24 06:30
07/11/24 07:37
Labs
Hgb 17.3 g/dL (13.0-18.0) 07/11/24 06:30
Hct 50.9 % (39.0-52.0) 07/11/24 06:30
Plt Count 144 10^3/uL (130-400) 07/11/24 06:30
APTT 80.9 Sec (23.4-35.0) H 07/12/24 02:34
Sodium 138 mmol/L (135-145) 07/11/24 07:37
Potassium 4.3 mmol/L (3.5-5.1) 07/11/24 07:37
BUN 14 mg/dl (9-20) 07/11/24 07:37
Creatinine 0.8 mg/dL (0.7-1.3) 07/11/24 07:37
Glucose 138 mg/dl (70-99) H 07/11/24 07:37
Vital Signs and I&O:
Vital Signs
Temp Pulse Resp BP Pulse Ox
98.7 F 82 20 139/104 96
07/12/24 11:04 07/12/24 09:30 07/12/24 11:04 07/12/24 08:37 07/12/24 11:04
Vital Signs
Temp Pulse Resp BP Pulse Ox
98.7 F 82 20 139/104 96
07/12/24 11:04 07/12/24 09:30 07/12/24 11:04 07/12/24 08:37 07/12/24 11:04
Intake & Output
07/10/24 07/11/24 07/12/24 07/13/24
06:59 06:59 06:59 06:59
Intake Total 329 / 329 336 / 336
Output Total 600 / 600
Balance 329 / 329 -264 / -264
Physical Exam
Physical Exam
Gen: NAD, AAOx3
HEENT: NC/AT, sclera anicteric
Neck: No JVD
CV: Irregularly irregular, NL s1/s2, no M/R/G
Lungs: CTAB
Abd: S/ND
Ext: No LE edema
Skin: Warm, dry
Neuro: Non-focal
--- NOTE | 2024-07-12 19:05 | PTCARENOTE ---
~9836-2400: Handoff received from cecelia RN. Pt Aox4, Afib 80s-100s on tele, satting >90% RA. Pt denies generalized pain at this time, only c/o discomfort at R wrist IV site, new PIV placed and wrist IV removed. Heparin gtt therapeutic and
cardizem gtt infusing per protocols. Pt independent in room. All needs met at this time, call lares within reach.
~2107-0042: Patient independent in room in stable condition. AOx4, Afib 80s-100s on tele, SBP 120s-130s, RA satting >90%. Pt will be NPO at midnight for CLEVE/CV tomorrow. All needs met at this time, call lares within reach. Handoff report given to
cecelia LESTER.
[2024-07-12] MEDS: TOPROL XL 50 MG PO (22:05)
[2024-07-12] MEDS: KLONOPIN 1 MG PO (22:05)
--- NOTE | 2024-07-12 23:50 | PTCARENOTE ---
Patient received at change of shift resting in the bed. Diltiazem gtt infusing at 10mg/hr. Heparin gtt infusing at 1800units/hr. The patient reports palpations and intermittent dyspnea on exertion. Afib on telemetry. Oxygen saturation 97% on room
air. The patient denies pain at this time. Plan of care discussed including nothing to eat or drink after midnight in anticipation of CLEVE/Cardioversion tomorrow. Call lares within reach. Care ongoing.
[2024-07-13 04:28] VITALS: BP 131/86
[2024-07-13 04:29] VITALS: BMI 37.5
[2024-07-13 05:00] LABS: Hematocrit 49.8 % (39.0-52.0); Hemoglobin 17.6 g/dL (13.0-18.0); Mean Corp Hgb Conc. 35.3 g/dL (33.0-37.0); Mean Corpuscular Hgb 32.8 pg (27.0-31.0); Mean Corpuscular Volume 92.7 fL (80.0-94.0); Mean Platelet Volume 9.9 fL (7.4-10.4); Platelet Count 138 10^3/uL (130-400); Red Blood Cell Count 5.37 10^6/uL (4.70-6.10); Red Cell Dist. Width 12.8 % (11.5-14.5); White Blood Cell Count 8.3 10^3/uL (4.8-10.8)
[2024-07-13 05:01] LABS: APTT 85.2 Sec (23.4-35.0)
[2024-07-13 05:46] LABS: Blood Urea Nitrogen 13 mg/dl (9-20); Calcium 9.5 mg/dl (8.4-10.2); Carbon Dioxide 23 mmol/L (22-30); Chloride 109 mmol/L (98-107); Estimated Creatinine Clearance > 125 ml/min; Glucose 136 mg/dl (70-99); Magnesium 2.1 mg/dl (1.6-2.3); Potassium 4.5 mmol/L (3.5-5.1); Sodium 139 mmol/L (135-145); eGFR > 60.00
[2024-07-13] MEDS: HEPARIN 25000 UNITS/250 ML IV (06:04)
[2024-07-13 07:22] VITALS: BP 131/92
[2024-07-13] MEDS: LIPITOR 80 MG PO (07:44)
[2024-07-13] MEDS: ZETIA 10 MG PO (07:44)
[2024-07-13] MEDS: ZESTRIL 40 MG PO (07:44)
[2024-07-13] MEDS: TOPROL XL 100 MG PO (07:44)
[2024-07-13] MEDS: NORVASC 5 MG PO (07:44)
--- NOTE | 2024-07-13 08:00 | PTCARENOTE ---
Rec'd pt at handoff. Tele- Afib. Cardizem gtt infusing at 10ml/hr. Pt has no complaints this AM. Pt aware of NPO status for CLEVE/CV today. Plan of care reviewed w/ pt and verbalizes understanding. Currently in bed; call luda w/in reach.
--- NOTE | 2024-07-13 09:01 | PTCARENOTE ---
Rec'd pt at handoff. Tele- Afib. Cardizem gtt infusing at 10ml/hr and Heparin gtt infusing at 18 ml/hr. Pt has no complaints this AM. Pt aware of NPO status for CLEVE/CV today. Plan of care reviewed w/ pt and verbalizes understanding. Currently in
bed; call luda w/in reach.
--- NOTE | 2024-07-13 09:33 | W.PN.CARDCBS ---
Addendum entered and electronically signed by Inez Atkinson PA-C 07/13/24 12:43:
CLEVE showed no left atrial appendage thrombus. Patient underwent successful cardioversion with 200 J x 1 shock.
Will resume sotalol 120 mg twice a day now
Stop heparin drip and resume Xarelto 20 mg daily with food.
Patient stable from cardiac standpoint for discharge.
Discussed w/ Dr. Gilbert above plan
Original Note:
Today's Communication / Plan
-
Plan for CLEVE/cardioversion and potential discharge later today.
Continue IV heparin with eventual transition back to Xarelto after LCEVE/cardioversion
Continue IV Cardizem and oral metoprolol for rate control, goal HR <110 bpm
Resume sotalol prior to discharge.
He may ultimately benefit from PVI but needs to continue to be compliant with anticoagulation. Outpatient EP consultation.
Impression / Plan
-
PCP: Dileep Ortiz
Primary Comic Book Artist: Dr. Fitzpatrick
Impression:
Presented 07/10/2024 with palpitations, tachycardia
Paroxysmal atrial fibrillation RVR
Chronic OAC, reports could not afford and has been off anticoagulation for the last 4 days
Paroxysmal atrial fibrillation
Status post CLEVE cardioversion 05/10/2024, CLEVE/cardioversion 11/28/2023, CLEVE cardioversion 09/05/2020
Has failed amiodarone and sotalol
History of CAD/OK with multiple PCIs:
LAD August 2017
LCX/mid LAD April 2017
Diagonal February 2017
Mid RCA August 2008
Recovered ischemic cardiomyopathy with last EF 50-55% 05/2023 and CLEVE 11/2023
Hyperlipidemia
History of recurrent pancreatitis
Hypertension
Obesity
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
History of right lower leg fracture
Noncompliance due to insurance issues
CLEVE 05/10/2024: EF 55 to 60%, mild MR, mild TR, mildly dilated aortic root at 4.0 cm. No left atrial appendage thrombus
ECHO 06/05/2023: Definity used, EF 50 to 55%, mild mid to distal apical septal hypokinesis, no significant valve disease, mildly dilated aortic root and ascending aorta
CLEVE 11/28/2023: EF 50 to 55%. No significant valvular disease. No left atrial appendage thrombus. Mildly enlarged aortic root (4.0 cm). Mildly enlarged ascending aorta (4.2 cm).
Lexiscan nuclear stress test 10/02/2023: Fixed defect in apical anterior segment consistent with infarction, EF 56%
Plan:
HPI: Patient is a 64-year-old male with past medical history of CAD status post multiple stents, recovered ischemic cardiomyopathy, paroxysmal atrial fibrillation, hyperlipidemia, hypertension and noncompliance. He was last here in April 2024 after
he awoke with palpitations in the middle the night. He underwent CLEVE/cardioversion. he has been taking Sotalol and Toprol. Unfortunately he ran out of Xarelto on Friday and was waiting for his Social Security check to clear to pickling operator his new
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 He was doing well until yesterday when he started noting intermittent palpitations and fluttering. Last night he awoke around 2 AM from sleep with a feeling of his heart racing. When symptoms persisted this morning he came to [facility]
and was in atrial fibrillation with RVR. He was started on IV Cardizem drip and IV Heparin gtt. He denies chest discomfort, lower extremity edema, abdominal bloating, orthopnea. He does admit to having 1 whiskey's hour last evening but otherwise
denies excessive alcohol use, increased caffeine or ylyd-tir-apaviku supplements.
At time of this evaluation he does continue to feel palpitations but denies chest pain, shortness of breath, dizziness or lightheadedness. Patient's heart rate now improved with IV diltiazem and drip and IV heparin
Plan for CLEVE/cardioversion and potential discharge later today.
Continue IV heparin with eventual transition back to Xarelto after CLEVE/cardioversion
Continue IV Cardizem and oral metoprolol for rate control, goal HR <110 bpm
Resume sotalol prior to discharge.
He may ultimately benefit from PVI but needs to continue to be compliant with anticoagulation. Outpatient EP consultation.
May have sleep apnea and that he should be considered for outpatient sleep study. He says that he does not snore. Discussed that untreated sleep apnea would put him at elevated risk for recurrent atrial fibrillation.
Recent CLEVE with preserved LV function April 2024.
Continue statin and Zetia for hyperlipidemia.
He takes metoprolol, amlodipine and lisinopril for hypertension as an outpatient.
Compliance with medications and follow-up has been discussed. He has missed several follow-ups.
HPI 07/10/24
Patient is a 64-year-old male with past medical history of CAD status post multiple stents, recovered ischemic cardiomyopathy, paroxysmal atrial fibrillation, hyperlipidemia, hypertension and noncompliance. He was last here in April 2024 after he
awoke with palpitations in the middle the night. He underwent CLEVE/cardioversion. he has been taking Sotalol and Toprol. Unfortunately he ran out of [employer] on Friday and was waiting for his Social Security check to clear to pickling operator his new
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 He was doing well until yesterday when he started noting intermittent palpitations and fluttering. Last night he awoke around 2 AM from sleep with a feeling of his heart racing. When symptoms persisted this morning he came to [facility]
and was in atrial fibrillation with RVR. He was started on IV Cardizem drip and IV Heparin gtt. He denies chest discomfort, lower extremity edema, abdominal bloating, orthopnea. He does admit to having 1 whiskey's hour last evening but otherwise
denies excessive alcohol use, increased caffeine or kzjv-ujb-tlzxwvb supplements.
At time of this evaluation he does continue to feel palpitations but denies chest pain, shortness of breath, dizziness or lightheadedness. Patient's heart rate now improved with IV diltiazem and drip and IV heparin
Progress Note - Comic Book Artist
Subjective
Date of Service: July 13, 2024
Pt seen and examined. No complaints. No chest pain or shortness of breath.
Objective
Labs:
07/13/24 04:40
07/13/24 04:40
Labs
Hgb 17.6 g/dL (13.0-18.0) 07/13/24 04:40
Hct 49.8 % (39.0-52.0) 07/13/24 04:40
Plt Count 138 10^3/uL (130-400) 07/13/24 04:40
APTT 85.2 Sec (23.4-35.0) H 07/13/24 04:40
Sodium 139 mmol/L (135-145) 07/13/24 04:40
Potassium 4.5 mmol/L (3.5-5.1) 07/13/24 04:40
BUN 13 mg/dl (9-20) 07/13/24 04:40
Creatinine 0.8 mg/dL (0.7-1.3) 07/13/24 04:40
Glucose 136 mg/dl (70-99) H 07/13/24 04:40
Vital Signs and I&O:
Vital Signs
Temp Pulse Resp BP Pulse Ox
98.8 F 136 18 131/92 98
07/13/24 04:29 07/13/24 07:30 07/13/24 04:29 07/13/24 07:22 07/13/24 07:22
Vital Signs
Temp Pulse Resp BP Pulse Ox
98.8 F 136 18 131/92 98
07/13/24 04:29 07/13/24 07:30 07/13/24 04:29 07/13/24 07:22 07/13/24 07:22
Intake & Output
07/11/24 07/12/24 07/13/24 07/14/24
06:59 06:59 06:59 06:59
Intake Total 329 / 329 336 / 336
Output Total 600 / 600
Balance 329 / 329 -264 / -264
Physical Exam
Physical Exam
General: No acute distress, AAOX3
Neck: Negative JVD
Heart: Iregularly irregular, Negative S3 positive S1/S2, Negative S4, No murmur
Lungs: CTA b/l, negative wheezes/rales/rhonchi
Abd: Positive BS, NT/ND, neg rebound/rigidity/guarding
Ext: Negative cyanosis/clubbing/edema
Neuro: nonfocal
--- NOTE | 2024-07-13 10:34 | W.PN.HOSP.TC ---
Today's Communication/Plan
-
d/c
Assessment / Plan
Assessment / Plan
Gen: NAD, AAOx3.
Eyes: EOMI, PERRLA, no scleral icterus.
Neck: supple.
CV: RRR, +S1/S2, no m/r/g.
Resp: remains CTAB anteriorly, no rales, wheezes, or rhonchi.
Abd: remains +BS, soft, NT, ND
Skin: No rashes.
Neuro: CN 2-12 intact, non-focal.
Psych: Normal mood and affect.
Paroxysmal atrial fibrillation with RVR:
-was on IV Cardizem/heparin gtts
-Of note, patient missed 5 days of Xarelto due to cost issues. Sotalol was stopped prior to TEECV.
-cont BB
-s/p TEECV 07/13/24, now in SR
-cards following. Case discussed with Dr. Martinez and he has cleared the pt for discharge. Will restart Sotalol.
Other problems:
CAD with h/o [place] x 2 and multiple stents: cont BB/statin
Essential HTN: cont Norvasc/ACEi/BB
HLD: Cont statin/Zetia
h/o recurrent pancreatitis
Obesity due to excess calories
FULL/Heparin
Total time spent on d/c = 38 min. This included today's physical exam, progress note, review of laboratory and diagnostic data, preparation of discharge documents and prescriptions, and discussions about the pt's hospital course and discharge plan
with the patient and other medical driver involved in the patient's care.
Anticipated Discharge: Today
Subjective/Interval History
-
Date of Service: July 13, 2024
Denies chest pain or shortness of breath.
Objective Data
-
Labs:
Laboratory Results
07/13/24
04:40
WBC 8.3
Hgb 17.6
Hct 49.8
Plt Count 138
APTT 85.2 H
Sodium 139
Potassium 4.5
Chloride 109 H
Carbon Dioxide 23
BUN 13
Creatinine 0.8
Glucose 136 H
Calcium 9.5
Vital Signs:
Vital Signs
Temp Pulse Resp BP Pulse Ox
98.8 F 136 18 131/92 98
07/13/24 04:29 07/13/24 07:30 07/13/24 04:29 07/13/24 07:22 07/13/24 07:22
I&O
07/12/24 07/13/24 07/14/24
06:59 06:59 06:59
Intake Total 336 / 336
Output Total 600 / 600
Balance -264 / -264
[2024-07-13 11:45] VITALS: BP 121/86
--- NOTE | 2024-07-13 12:37 | CM ---
Reviewed chart. Met with Mr. Li to review discharge plans. He states prior to admission he resides with his son in a third floor walk-up apartment. He states prior to admission he was independent with ambulation and adls. He states he does
not have any DME in the home. He states he has a prescription plan and uses [facility]. Medical work-up in progress. The discharge plan is to return home with his son when medically stable.
[2024-07-13] MEDS: BETAPACE 120 MG PO (12:50)
[2024-07-13] MEDS: XARELTO 20 MG PO (12:50)
--- NOTE | 2024-07-13 13:38 | PTCARENOTE ---
IV and tele removed. Discharge instructions reviewed w/ pt and verbalizes understanding. Belongings collected and sent home w/ pt. Escorted via WC and staff assist to home.
== END 2024-07-13 13:38 | disposition home or self-care (01) | DRG 310 ==
LOC: IVU 12:33
PROVIDERS: Nurse Practitioner Family; Student in an Organized Health Care Education/Training Program; ADMITTING PHYSICIAN Internal Medicine; ATTENDING PHYSICIAN Internal Medicine; CONSULT PHYSICIAN Nuclear Medicine Nuclear Cardiology; EMERGENCY PHYSICIAN Emergency Medicine; FAMILY PHYSICIAN Family Medicine
PROC: B24BZZ4 Ultrasonography of Heart with Aorta, Transesophageal (ICD-10-PCS; 2024-07-13)
DX: I48.0 Paroxysmal atrial fibrillation (principal); Z91.190 Patient's noncompliance with other medical treatment and regimen due to financial hardship; I25.10 Atherosclerotic heart disease of native coronary artery without angina pectoris; Z95.5 Presence of coronary angioplasty implant and graft; I25.2 Old myocardial infarction; I10 Essential (primary) hypertension; E78.00 Pure hypercholesterolemia, unspecified; E66.812 Obesity, class 2; Z68.37 Body mass index [BMI] 37.0-37.9, adult; Z79.01 Long term (current) use of anticoagulants; Z79.899 Other long term (current) drug therapy; Z80.6 Family history of leukemia
CPT/HCPCS: 80048; 80053; 83735; 85025; 85027; 85730; 92960; 93005; 93312; 93320; 93325; 96365; 96366; 96367; 99291

== ENCOUNTER → 2024-08-26 12:40 | Outpatient (REF) | payer OTHER, SELFPAY ==
--- NOTE | 2024-08-26 14:11 | CARDSERVLU ---
Echocardiogram with Lumason completed after protocol screening completed. Allergies verified.
Patent IV site: _left hand____
IV site flushed with 0.9% NaCl pre and post administration.
Diluted bolus method utilized to enhance visualization of ventricular calvin.
Total volume given: __2.0__ mL
Patient tolerated all procedures well without complications.
#22 elsa placed left hand. Lumason given. INT d/c'd. pressure held. No bleeding noted.
== END ==
LOC: RCS 12:40
PROVIDERS: ATTENDING PHYSICIAN Internal Medicine Cardiovascular Disease; FAMILY PHYSICIAN Family Medicine
DX: I48.0 Paroxysmal atrial fibrillation (principal); R06.02 Shortness of breath
CPT/HCPCS: 93306; Q9950

== ENCOUNTER 2024-08-27 09:58 | Inpatient (IN) | payer OTHER, SELFPAY ==
[2024-08-27] VITALS (22 sets, daily range): BP systolic 109–165; BP diastolic 81–112; PULSE 127; BMI 39.0; BMI 38.1
[2024-08-27] MEDS: CARDIZEM 20 MG IV (06:39)
[2024-08-27] MEDS: CARDIZEM 125 IV ×3 (06:39→23:10)
[2024-08-27 06:44] LABS: Hematocrit 47.2 % (39.0-52.0); Hemoglobin 16.7 g/dL (13.0-18.0); Mean Corp Hgb Conc. 35.4 g/dL (33.0-37.0); Mean Corpuscular Volume 93.1 fL (80.0-94.0); Nucleated Red Blood Cells % 0 % (-); Platelet Count 157 10^3/uL (130-400); Red Cell Dist. Width 13.2 % (11.5-14.5)
[2024-08-27 07:14] LABS: ALT (SGPT) 25 U/L (0-50); AST (SGOT) 14 U/L (17-59); Albumin 4.0 g/dl (3.5-5.0); Alkaline Phosphatase 80 U/L (38-126); Blood Urea Nitrogen 21 mg/dl (9-20); Calcium 8.7 mg/dl (8.4-10.2); Carbon Dioxide 23 mmol/L (22-30); Chloride 110 mmol/L (98-107); Estimated Creatinine Clearance > 125 ml/min; Glucose 124 mg/dl (70-99); Magnesium 2.0 mg/dl (1.6-2.3); Potassium 3.9 mmol/L (3.5-5.1); Sodium 139 mmol/L (135-145); Total Protein 6.5 g/dl (6.3-8.2); eGFR > 60.00
--- NOTE | 2024-08-27 08:36 | ED.GENMED ---
History of Present Illness
General
Chief Complaint: Cardiac Symptoms
Source: patient
Exam Limitations: none
Time Seen by Provider: 08/27/24 06:03
History of Present Illness
History of Present Illness:
Note:
CHIEF COMPLAINT(S)
Atrial fibrillation
HISTORY OF PRESENT ILLNESS
The patient is a 64-year-old male who presented to the emergency department with symptoms of atrial fibrillation, which he has experienced over six prior instances, the most recent being over . He describes sensations of his
heart racing and an irregular rhythm, jeff to 'all over the place.' Earlier today, he experienced transient chest tightness. He also noted mild shortness of breath. The patient reports missing doses of his prescribed blood thinner, rivaroxaban, due
to financial constraints, having last missed it at the beginning of the month before resuming intake on August 21. Additionally, he sometimes misses doses inadvertently, like last night, when he forgot before sleeping but took it at 2 a.m.
The patient is under the care of Dr. Fitzpatrick, a campground cleaning attendant, and he is currently on sotalol, rivaroxaban, and other medications which he could not provide immediately. However, the patient notes that occasionally missed medications do not seem to
trigger his atrial fibrillation episodes. Patient also admits he has not taken his metoprolol and intermittently misses medications based on affordability
PHYSICAL EXAM
General: Patient appears alert and in no acute distress.
Cardiovascular: Heart sounds irregular and tachycardic, as noted on auscultation. No edema in extremities noted.
Respiratory: Mild shortness of breath admitted by the patient. Lungs clear.
Abd: nondistended, no tenderness
Neuro: no focal deficits. CN intact. speech normal
extremities: no cyanosis, no edema.
No reports of fever, vomiting, diarrhea, or gastrointestinal bleeding.
MEDICATIONS
- Rivaroxaban (Xarelto)
- Sotalol
- Other medications reported but not confirmed due to unavailable list.
SOCIAL DETERMINANTS AFFECTING HEALTH
The patient is retired and living on a limited income, citing financial difficulties as the reason for inconsistent medication adherence. While he holds a part-time job to support these needs, there are gaps between pay periods which contribute to
periodic missed doses of his medications.
PLAN
To slow the patients heart rate in hopes of achieving a normal rhythm. Discuss potential for transesophageal echocardiogram (CLEVE) followed by cardioversion if the rhythm does not correct itself. Concern noted regarding possible clot formation due to
intermittent anticoagulation therapy compliance. Further management plans would be made in conjunction with the cardiology team.
DIFFERENTIAL DIAGNOSIS
The Differential Diagnosis includes, in no particular order and is not limited to:
1. Atrial fibrillation
2. Atrial flutter
3. Supraventricular tachycardia
4. Ventricular tachycardia
5. Coronary artery disease
6. Pulmonary embolism
7. Heart failure
8. Hyperthyroidism
9. Hypertensive heart disease
10. Anxiety disorder
CARE-UPDATE
08/27/24 - 07:20
Heart rate reduced to 120 bpm; patient reports unchanged symptoms without concerns. Blood pressure remains stable. Topis and drip rate adjusted to 10 mL/hr.
EKG
My independent EKG interpretation is:
- Rhythm: Atrial fibrillation with rapid ventricular response (RVR)
- [place]: Left axis deviation
- Notable Abnormalities:
- Non-specific ST-T wave abnormalities
- Poor anterior R-wave progression
Disposition:
SUMMARY OF ENCOUNTER
The patient is a 64-year-old male with a history of atrial fibrillation who presented to the emergency department with symptoms consistent with rapid ventricular response (RVR). He reports that he frequently misses doses of his anticoagulant
medications due to financial constraints, which led to episodes of atrial fibrillation. His blood pressure remains stable, but there was no conversion with AV blockers / intravenous diltiazem administered. Given the intermittent adherence to
anticoagulation, the patient is not a candidate for direct cardioversion in the emergency department. Admission for cardiology evaluation, potential transesophageal echocardiogram (CLEVE), and likely cardioversion, along with a further assessment, are
planned.
DISPOSITION
Admit for cardiology evaluation
ASSESSMENT
The patient is experiencing atrial fibrillation with RVR, exacerbated by inconsistent anticoagulation therapy adherence due to financial limitations.
PLAN
Admit for cardiology consultation and likely CLEVE and cardioversion. Further evaluation of the patients adherence to anticoagulation therapy and potential alternative medication regimens will be discussed.
MEDICATION RECONCILIATION
The patient is prescribed rivaroxaban and sotalol, but struggles with adherence due to financial issues.
MEDICAL DECISION MAKING
1. Number and Complexity of Problems Addressed: Chronic conditions affecting care include atrial fibrillation with RVR, and issues around medication adherence due to financial constraints. Differential diagnosis includes atrial fibrillation, atrial
flutter, supraventricular tachycardia, ventricular tachycardia, coronary artery disease, pulmonary embolism, heart failure, hyperthyroidism, hypertensive heart disease, and anxiety disorder.
2. Data:
Category 1: Review of patients outpatient medication adherence issues.
Category 2: My independent interpretation of the EKG shows atrial fibrillation with rapid ventricular response (RVR), left axis deviation, non-specific ST-T wave abnormalities, and poor anterior R-wave progression.
Category 3: Discussion with cardiology and hospitalist team regarding admission for further evaluation and potential CLEVE and cardioversion.
3. Risk: Due to the risk of thromboembolism from inconsistent anticoagulation, cardioversion in the emergency department without adequate anticoagulation coverage was deemed too risky. Hospital admission for cardiology assessment and management was
considered necessary.
DIAGNOSIS
- Atrial fibrillation with rapid ventricular response (ICD-10: I48.91).
Past History
Past History
ED Past Medical History: Arrthythmia (Atrial fibrillation), CAD, HTN, Hypercholesterolemia, MS (X 2) and Other (Back pain, Numbness in arms and legs)
ED Past Surgical History: Cardiac (Multiple stents) and Orthopedic (right knee surgery, Ulnar nerve removed Left elbow)
Social History
Tobacco: Non-smoker
Alcohol: Occasional
Drug: None
Personal:
Living: with family
Employment: Employed
Family History
Family History: Other (Mother with leukemia)
Phy Exam
Physical Exam
Physical Exam:
.
Course
Orders/Labs/Results
Orders:
Orders
08/27/24 05:42
EKG [Electrocardiogram (*1)] Urgent
Reason for Study: Palpitations
EKG- Treatment ONCE
08/27/24 06:32
Diltiazem 125 mg/125 ml Nss [Cardizem] 125 mg in 125 ml IV NOW
Initial dose in mg/hr, then titrate:: 5
Titrate to keep:: Heart rate 80-100 bpm
Titrate by mg/hr:: 5 mg/hr
Frequency of titrations (minutes):: 15
Maximum dose in mg/hr:: 15
Diltiazem HCl [Cardizem] 20 mg IV NOW STA
08/27/24 06:35
Complete Blood Count/With Diff Urgent
Comprehensive Metabolic Panel Urgent
Magnesium Urgent
Abnormal Lab Results
08/27/24
06:35
MCH 32.9 H pg
(27.0-31.0)
Absolute Lymphs (auto) 1.0 L 10^3/uL
(1.2-3.4)
Absolute Monos (auto) 0.8 H 10^3/uL
(0.1-0.6)
Lymphocytes % 18.2 L %
(20.5-51.1)
Monocytes % 14.2 H %
(1.7-9.3)
Chloride 110 H mmol/L
(98-107)
BUN 21 H mg/dl
(9-20)
Glucose 124 H mg/dl
(70-99)
AST 14 L U/L
(17-59)
08/27/24 06:35
08/27/24 06:35
Vital Signs
Initial and Last Documented VS:
Initial Vital Signs
Temp Pulse Resp BP Pulse Ox
98.5 F 87 16 130/101 96
08/27/24 05:47 08/27/24 05:47 08/27/24 05:47 08/27/24 05:47 08/27/24 05:47
Last Documented Vital Signs
Temp Pulse Resp BP Pulse Ox
98.5 F 109 19 165/95 96
08/27/24 05:47 08/27/24 06:27 08/27/24 06:27 08/27/24 06:27 08/27/24 08:39
*Pulse Oximetry
SaO2: 96
Oxygen Mode of Delivery: Room air
Patient hypoxic: no
*Critical Care Note
Total Time (30-74mins, 75-104mins- exclusive of procedures): 35 minutes
ED Attending Note
-
Portions of this chart may have been created with voice recognition software.� Occasional wrong word or��sound alike� substitutions may have occurred due to the inherent limitations of voice recognition software.
Discharge Plan
Departure
Patient Disposition: Admit
Date of Disposition: 08/27/24
Time of Disposition: 08:39
Admit to: Telemetry
Presentation/result/management discussed w/ accepting MD/DO: Hospitalist
Discharge Problem:
Atrial fibrillation with rapid ventricular response
Prescriptions:
No Action
ezetimibe 10 MG tablet
10 mg PO DAILY
atorvastatin 80 MG tablet
80 mg PO DAILY
lisinopril 40 mg Tablet
40 mg PO DAILY
metoprolol succinate [Toprol XL] 50 mg Tablet Extended Release 24 Hr
50 mg PO QPM Qty: 0
metoprolol succinate [Toprol XL] 100 mg Tablet Extended Release 24 Hr
100 mg PO DAILY Qty: 0
clonazepam [Klonopin] 1 mg Tablet
1 mg PO HSPRN PRN (Reason: sleep)
amlodipine 5 mg tablet
5 mg PO DAILY Qty: 30 0RF
acetaminophen [Tylenol Extra Strength] 500 mg Tablet
500 mg PO Q6HPRN PRN (Reason: mild pain)
Xarelto 20 mg tablet
20 mg PO QPM
sotalol 120 mg Tablet
120 mg PO BID Qty: 60 11RF
Referrals:
Dileep Ortiz MD [Family Provider, [facility]]
Interventions
Interventions:
*Risk Screen - Suicide Last Done: 08/27/24 05:47
*Neglect/Abuse Screening Last Done: 08/27/24 05:47
ED- Pulmonary Assessment Last Done: 08/27/24 06:32
ED- Cardiac Assessment Last Done: 08/27/24 06:32
Discharge Date and Time
Print Language: UGANDAN
--- NOTE | 2024-08-27 08:55 | HPS.HSE ---
Family Physician
-
Family Physician: Dileep Ortiz
Chief Complaint
-
Palpitations
History of Present Illness
Patient 64-year-old male with past medical history of A-fib, CAD, hypertension, anxiety, hyperlipidemia, obesity, came into the hospital with palpitations. Patient has been experiencing palpitations associated with some shortness of breath and
chest tightness over the last several days. He has been having on and off symptoms. Denies diaphoresis near-syncope or syncope. He tells me he is taking most of his medications but he has missed some of them over the August 20 weekend. Denies
fevers or chills. Denies nausea vomiting diarrhea abdominal pain dysuria urgency frequency or cough. He has been compliant with anticoagulation and as a matter fact last night he was going to take Xarelto but missed that and took it around 2 AM.
Patient has been in the hospital with multiple hospitalizations with similar complaints. He was noted to be in A-fib RVR in the ER he was started on Cardizem drip. He was referred to hospitalist service for further evaluation.
Medical History
Past Medical History
Past Medical History: Reports Other (hx of CAD s/p multiple PCIs, Parox Afib (hx of Cardioversion), HLD, HTN, Obesity)
Past Surgical History: Reports Other (Cardiac (Multiple coronary stents to LAD diagonal and RCA, multiple cardioversions) and Orthopedic (Arthroscopic right knee surgery, ulnar nerve removed from left elbow in March 2019))
Social History
Tobacco: Non-smoker
Alcohol: Occasional
Drug: None
Living: With Family
Employment: Retired
Family History
Family History: Not pertinent
Allergies / Home Medications
Allergies reflects when Allergies were last updated in [facility].
Home Medications with original date entered in [facility]
Allergy/Medication List:
Allergies
Allergy/AdvReac Type Severity Reaction Status Date / Time
No Known Allergies Allergy Verified 08/27/24 05:46
Home Medications
atorvastatin 80 mg tablet 80 mg PO DAILY High cholesterol 05/11/20
ezetimibe 10 mg tablet 10 mg PO DAILY High cholesterol 05/11/20
lisinopril 40 mg tablet 40 mg PO DAILY Blood Pressure 06/04/23
metoprolol succinate 100 mg tablet,extended release 24 hr (Toprol XL) 100 mg PO DAILY ##0 05/09/24
metoprolol succinate 50 mg tablet,extended release 24 hr (Toprol XL) 50 mg PO QPM ##0 05/09/24
amlodipine 5 mg tablet 5 mg PO DAILY #30 tabs 05/10/24
clonazepam 1 mg tablet (Klonopin) 1 mg PO HSPRN PRN sleep 05/10/24
rivaroxaban 20 mg tablet (Xarelto) 20 mg PO QPM 07/10/24
sotalol 120 mg tablet 120 mg PO BID Arrhythmia #60 tabs 07/13/24
Review of Systems
-
A 12 point ROS was completed and negative except as noted: Yes
Physical Exam
Vital Signs
Vital Signs
Temp Pulse Resp BP Pulse Ox
98.5 F 126 22 122/101 96
08/27/24 05:47 08/27/24 08:30 08/27/24 08:30 08/27/24 08:30 08/27/24 08:39
Physical exam:
General: Acutely ill
HEENT: Normocephalic, Atraumatic and Moist Mucous Membranes
Respiratory: Clear to Auscultation; Negative Wheezes, Rales or Rhonchi
Cardiac: Irregular rate and rhythm, tachycardic, and S1/S2
GI: Soft, Nontender and Nondistended
Musculoskeletal: No Clubbing, No Cyanosis and No Edema
Neuro: Awake, Alert and Oriented, no neurological deficit
Psych: Calm
Physical Exam
General: Other
Laboratory Results
-
08/27/24 06:35
08/27/24 06:35
Laboratory Results
Total Bilirubin 0.9 mg/dl (0.2-1.3) 08/27/24 06:35
AST 14 U/L (17-59) L 08/27/24 06:35
ALT 25 U/L (0-50) 08/27/24 06:35
Alkaline Phosphatase 80 U/L (38-126) 08/27/24 06:35
Data Reviewed
-
Diagnostic Radiology: Image Personally Visualized and interpreted
CT Scan: Image Personally Visualized and interpreted
Lab Data: Labs Reviewed by me
Impression/Plan
-
IMPRESSION:
Patient 64-year-old male with multiple comorbidities presented to the hospital with A-fib RVR. Patient increased risk of morbidity and mortality due to his cardiac presentation therefore he will need to be in the hospital and treated and monitor
accordingly.
PLAN:
Paroxysmal atrial fibrillation with rapid ventricular response:
Admit to IVU
Rate control on Cardizem drip and restart his beta-blockers
Antiarrhythmic with sotalol
Anticoagulation with Xarelto
Cardiology consult-discussed with cardiology via [place] text today and will follow-up further recommendations
Recovered ischemic cardiomyopathy:
Monitor volume status
Monitor ins and outs and daily weights
History of CAD:
Continue anti-ischemic regimen
Hypertension:
Continue his home medications
Hyperlipidemia:
Continue statins and Zetia
Obesity:
Lifestyle changes modification
History of recurrent pancreatitis:
Monitor for recurrence
History of noncompliance:
Reinforced importance of compliance
DVT prophylaxis:
Xarelto
CODE STATUS:
Full code
Time spent 75 minutes
--- NOTE | 2024-08-27 09:58 | CON.CAR ---
Addendum entered and electronically signed by Kali Dubois MD 08/27/24 18:07:
64-year-old man with paroxysmal atrial fibrillation, often financially constrained regarding Xarelto, admitted now with PAF. Was scheduled for PVI September 10, 2024.
PMH: CAD, EDUAR to LAD August 2017, circumflex and mid LAD April 2017, diagonal PCI 2017, mid RCA PCI 2008, history of ischemic cardiomyopathy with improved EF, hyperlipidemia, pancreatitis, hypertension, obesity
PSH: Arthroscopic right knee surgery, ulnar release left arm,
Non-smoker, some alcoholic beverages on the weekend, lives with son
Current meds: IV diltiazem, rivaroxaban 20 mg every afternoon, sotalol 120 mg p.o. twice daily, atorvastatin 80 mg daily, ezetimibe, metoprolol ER 50 mg a day in the evening and 100 mg in the a.m., lisinopril 40 mg a day, amlodipine 5 mg daily
126/81, pulse now 87, respiratory rate 18, afebrile, no distress, exam unremarkable, lungs are clear irregular rate and rhythm, controlled rate, abdomen obese, extremities without clubbing cyanosis or edema
ECG atrial fibrillation with rapid ventricular response
Hemoglobin 16.7, white count 5.4, platelets 157, potassium 3.9, BUN/creatinine 21 and 0.7
Impression:
See below as per Somwya Lai. Reviewed in detail and agree, unless otherwise specified.
CAD status post multiple PCI's
Hyperlipidemia
Hypertension
History of recurrent pancreatitis
Obstructive sleep apnea suspected
Obesity
Noncompliance
PAF on sotalol, scheduled for PVI
Plan:
He presents with recurrence atrial fibrillation with rapid ventricular response on sotalol, was scheduled for PVI September 10.
Currently rate is well-controlled on IV diltiazem, sotalol, and metoprolol.
He denies that he has sleep apnea.
Continue rivaroxaban.
Continue rate control through the weekend and proceed with transesophageal echo and cardioversion on Friday if still in A-fib.
Original Note:
Consultation
Consultation Request
Date/Time Consultation Performed: 08/27/24
Requesting Provider: Dr. Clay
Performing Provider: Sowmya Lai PA-C for Dr. KELSEY Dubois
Reason for Consultation: afib
Medical History
-
Chief Complaint: afib
History of Present Illness:
Patient is a 64-year-old male with past medical history of CAD status post multiple stents, recovered ischemic cardiomyopathy, paroxysmal atrial fibrillation, hyperlipidemia, hypertension and noncompliance.
He was most recently admitted to [facility] 06/2024 for recurrence of A-fib. He underwent successful CLEVE cardioversion on 07/13/2024 and was discharged on sotalol 120 mg twice daily, Toprol, Xarelto. He is scheduled for PVI with Dr. Lynn
09/10/2024. He reports he again missed his doses of Xarelto 08/17-08/20 due to monetary reasons. He started taking again 08/21 and has been compliant since then. He reports around 315 this morning he noted elevated heart rate, palpitations, and several
minutes of chest tightness with subsequently improved as his heart rate came down. He remains in A-fib at this time. Was started on IV Cardizem drip in ER.
PMH:
Paroxysmal atrial fibrillation
Has failed amiodarone
Multiple CLEVE/cardioversions
Scheduled for PVI 09/10/24
Chronic OAC with xarelto
History of CAD/OK with multiple PCIs:
LAD August 2017
LCX/mid LAD April 2017
Diagonal February 2017
Mid RCA August 2008
Recovered ischemic cardiomyopathy with last EF 50-55% 05/2023, EF preserved on CLEVE November 2023
Hyperlipidemia
History of recurrent pancreatitis
Hypertension
Obesity
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
History of right lower leg fracture
Noncompliance due to insurance/monetary issues
Past Medical History
Past Medical History: Other (in HPI)
Past Surgical History: Cardiac (Multiple coronary stents to LAD diagonal and RCA, multiple cardioversions) and Orthopedic (Arthroscopic right knee surgery, ulnar nerve removed from left elbow in March 2019)
Social History
Tobacco: Non-Smoker
Alcohol: Occasional (Few beers or glass of wine on the weekend)
Drug: None
Living: With Family (Son)
Employment: Retired
Family History
Family History: CAD
Allergies / Home Medications
Allergy/AdvReac Type Severity Reaction Status Date / Time
No Known Allergies Allergy Verified 08/27/24 05:46
�Medication �Instructions �Recorded �Confirmed �Type
atorvastatin 80 mg tablet 80 mg PO DAILY High cholesterol 05/11/20 08/27/24 History
ezetimibe 10 mg tablet 10 mg PO DAILY High cholesterol 05/11/20 08/27/24 History
lisinopril 40 mg tablet 40 mg PO DAILY Blood Pressure 06/04/23 08/27/24 History
metoprolol succinate 100 mg 100 mg PO DAILY ##0 05/09/24 08/27/24 History
tablet,extended release 24 hr
(Toprol XL)
metoprolol succinate 50 mg 50 mg PO QPM ##0 05/09/24 08/27/24 History
tablet,extended release 24 hr
(Toprol XL)
amlodipine 5 mg tablet 5 mg PO DAILY #30 tabs 05/10/24 08/27/24 Rx
clonazepam 1 mg tablet (Klonopin) 1 mg PO HSPRN PRN sleep 05/10/24 08/27/24 History
rivaroxaban 20 mg tablet (Xarelto) 20 mg PO QPM 07/10/24 08/27/24 History
sotalol 120 mg tablet 120 mg PO BID Arrhythmia #60 tabs 07/13/24 08/27/24 Rx
Review of Systems
-
History Source: Patient
All other systems: Negative unless noted
Physical Exam
Vital Signs
Temp Pulse Resp BP Pulse Ox
98.5 F 126 22 122/101 96
08/27/24 05:47 08/27/24 08:30 08/27/24 08:30 08/27/24 08:30 08/27/24 08:39
Lab Results
08/27/24 06:35
08/27/24 06:35
Physical Exam
General: No Apparent Distress and Comfortable
HEENT: Normocephalic, Anicteric and Moist Mucous Membranes
Respiratory: Clear and Non Labored Respirations
Cardiac: S1/S2 and Irregular Rhythm
GI: Soft, Non Tender, Non Distended and Normal Bowel Sounds
Musculoskeletal: No Clubbing, No Cyanosis and No Edema
Skin: Warm and Dry
Neuro: AO x 3
Impression / Plan
-
PCP: Dileep Ortiz
Primary Humane Officer: Dr. Fitzpatrick
Impression:
Presents with tachycardia, palpitations
Paroxysmal atrial fibrillation
Status post multiple CLEVE/CV
Has failed amiodarone
Chronic sotalol therapy
Chronic OAC with xarelto
Scheduled for PVI 09/10/24
History of CAD/OK with multiple PCIs:
LAD August 2017
LCX/mid LAD April 2017
Diagonal February 2017
Mid RCA August 2008
Recovered ischemic cardiomyopathy with last EF 50-55% 05/2023 and CLEVE 11/2023
Hyperlipidemia
History of recurrent pancreatitis
Hypertension
Obesity
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
History of right lower leg fracture
Noncompliance due to insurance/monetary issues
CLEVE 05/10/2024: EF 55 to 60%, mild MR, mild TR, mildly dilated aortic root at 4.0 cm. No left atrial appendage thrombus
ECHO 06/05/2023: Definity used, EF 50 to 55%, mild mid to distal apical septal hypokinesis, no significant valve disease, mildly dilated aortic root and ascending aorta
CLEVE 11/28/2023: EF 50 to 55%. No significant valvular disease. No left atrial appendage thrombus. Mildly enlarged aortic root (4.0 cm). Mildly enlarged ascending aorta (4.2 cm).
Lexiscan nuclear stress test 10/02/2023: Fixed defect in apical anterior segment consistent with infarction, EF 56%
ECHO 08/26/24: EF 60 to 65%, moderate concentric LVH, aortic sclerosis, mildly dilated aortic root, no significant change compared to prior
Plan:
- Patient presents due to symptomatic recurrence of atrial fibrillation around 3:00 this morning.
- chest CT pending
- he missed doses of xarelto 08/17-08/20/24, resumed as of 08/21. took dose at 2AM 08/27.
- continue IV cardizem gtt
- continue sotalol, toprol
- continue xarelto
- hopefully he spontaneously converts to SR, however otherwise will require CLEVE/CV on Wednesday 08/30.
- he is scheduled for PVI 09/10/24. if he spontaneously converts, would still need CLEVE prior to PVI to ensure no MARIZA thrombus.
- recent echo 08/26 with results as above
- we discussed importance of medication compliance pre and post ablation.
Data Reviewed
-
EKG: Tracing Personally Visualized and interpreted
Medical Tests (Nuc Med, Echo etc): Report Reviewed by me
Labs: Labs Reviewed by me
Old Records: Reviewed
[2024-08-27] MEDS: ZETIA 10 MG PO (11:15)
[2024-08-27] MEDS: TOPROL XL 100 MG PO (11:15)
[2024-08-27] MEDS: LIPITOR 80 MG PO (11:15)
[2024-08-27] MEDS: BETAPACE 120 MG PO ×2 (11:15→19:44)
--- NOTE | 2024-08-27 15:17 | PTCARENOTE ---
Patient admitted from the ED to room 2243. Oriented to the room and plan of care. IV cardizem infusing at 15mg/hr. Patient remains in AF with HR in the 80's. Nursing admission assessment completed, resting in bed, call lares in reach. Patient was
planning on having at PVI on 09/10, plan now is for CLEVE/CV on Friday.
--- NOTE | 2024-08-27 15:34 | CM ---
Reviewed chart. Met with Mr. Li to review discharge plans. He states prior to admission he resides with his son in a three floor walk-up apartment. He states he has three flight of steps to get to his apartment. He states prior to admission
he was independent with ambulation and adls. He states he does not have any DME in the home. He states he has a prescription plan and uses [facility]. Medical work-up in progress. The discharge plan is to return home with his son when
medically stable.
[2024-08-27] MEDS: TOPROL XL 50 MG PO (17:36)
[2024-08-27] MEDS: XARELTO 20 MG PO (17:39)
--- NOTE | 2024-08-27 21:00 | PTCARENOTE ---
Received patient at change of shift. Afib on the monitor, HR in the 80s. Cardizem running as per protocol, see documentation. Pt requested PRN Klonopin for sleep, administered as per APR. No complaints from pt at this time, call lares within reach.
[2024-08-27] MEDS: KLONOPIN 1 MG PO (22:02)
[2024-08-28] VITALS (7 sets, daily range): BP systolic 123–144; BP diastolic 89–106
[2024-08-28 04:29] LABS: Hematocrit 46.7 % (39.0-52.0); Hemoglobin 16.4 g/dL (13.0-18.0); Mean Corp Hgb Conc. 35.1 g/dL (33.0-37.0); Mean Corpuscular Volume 93.8 fL (80.0-94.0); Platelet Count 160 10^3/uL (130-400); Red Cell Dist. Width 13.0 % (11.5-14.5)
[2024-08-28 04:46] LABS: Blood Urea Nitrogen 16 mg/dl (9-20); Calcium 8.6 mg/dl (8.4-10.2); Carbon Dioxide 23 mmol/L (22-30); Chloride 109 mmol/L (98-107); Estimated Creatinine Clearance > 125 ml/min; Glucose 126 mg/dl (70-99); Magnesium 2.0 mg/dl (1.6-2.3); Potassium 3.9 mmol/L (3.5-5.1); Sodium 137 mmol/L (135-145); eGFR > 60.00
[2024-08-28 04:58] LABS: Troponin I < 0.012 ng/ml
--- NOTE | 2024-08-28 08:05 | W.PN.HOSP.TC ---
Today's Communication/Plan
-
See plan
Assessment / Plan
Assessment / Plan
Physical exam:
General: Acutely ill
HEENT: Normocephalic, Atraumatic and Moist Mucous Membranes
Respiratory: Clear to Auscultation; Negative Wheezes, Rales or Rhonchi
Cardiac: Irregular rate and rhythm, tachycardic, and S1/S2
GI: Soft, Nontender and Nondistended
Musculoskeletal: No Clubbing, No Cyanosis and No Edema
Neuro: Awake, Alert and Oriented, no neurological deficit
Psych: Calm
A/P:
Paroxysmal atrial fibrillation with rapid ventricular response:
Admit to IVU
Rate control on Cardizem drip and restarted his beta-blockers
Antiarrhythmic with sotalol
Anticoagulation with Xarelto
Cardiology consult-discussed with cardiology via [place] text today and will follow-up further recommendations
Recovered ischemic cardiomyopathy:
Monitor volume status
Monitor ins and outs and daily weights
History of CAD:
Continue anti-ischemic regimen
Hypertension:
Continue his home medications
Hyperlipidemia:
Continue statins and Zetia
Obesity:
Lifestyle changes modification
History of recurrent pancreatitis:
Monitor for recurrence
History of noncompliance:
Reinforced importance of compliance
DVT prophylaxis:
Xarelto
CODE STATUS:
Full code
Time spent 35-minutes
Anticipated Discharge: > 48 hours
Subjective/Interval History
-
Date of Service: August 28, 2024
Patient remains in A-fib. Afebrile. No chest pain
Objective Data
-
Labs:
Laboratory Results
08/28/24
03:59
WBC 7.1
Hgb 16.4
Hct 46.7
Plt Count 160
Sodium 137
Potassium 3.9
Chloride 109 H
Carbon Dioxide 23
BUN 16
Creatinine 0.7
Glucose 126 H
Calcium 8.6
Vital Signs:
Vital Signs
Temp Pulse Resp BP Pulse Ox
98.3 F 100 18 132/97 96
08/28/24 03:50 08/28/24 04:15 08/28/24 03:50 08/28/24 03:53 08/28/24 03:50
I&O
08/27/24 08/28/24 08/29/24
06:59 06:59 06:59
Intake Total 540 / 540
Balance 540 / 540
[2024-08-28] MEDS: ZESTRIL 40 MG PO (08:11)
[2024-08-28] MEDS: LIPITOR 80 MG PO (08:11)
[2024-08-28] MEDS: ZETIA 10 MG PO (08:11)
[2024-08-28] MEDS: TOPROL XL 100 MG PO (08:11)
[2024-08-28] MEDS: NORVASC 5 MG PO (08:11)
[2024-08-28] MEDS: BETAPACE 120 MG PO ×2 (08:11→19:31)
--- NOTE | 2024-08-28 13:11 | W.PN.CARDCBS ---
Today's Communication / Plan
-
Continue IV diltiazem
CLEVE cardioversion August 30
Impression / Plan
-
PCP: Dileep Ortiz
Primary Industrial Safety And Health Manager: Dr. Fitzpatrick
Impression:
Presents with tachycardia, palpitations
Paroxysmal atrial fibrillation
Status post multiple CLEVE/CV
Has failed amiodarone
Chronic sotalol therapy
Chronic OAC with xarelto
Scheduled for PVI 09/10/24
History of CAD/[place] with multiple PCIs:
LAD August 2017
LCX/mid LAD April 2017
Diagonal February 2017
Mid RCA August 2008
Recovered ischemic cardiomyopathy with last EF 50-55% 05/2023 and CLEVE 11/2023
Hyperlipidemia
History of recurrent pancreatitis
Hypertension
Obesity
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
History of right lower leg fracture
Noncompliance due to insurance/monetary issues
CLEVE 05/10/2024: EF 55 to 60%, mild MR, mild TR, mildly dilated aortic root at 4.0 cm. No left atrial appendage thrombus
ECHO 06/05/2023: Definity used, EF 50 to 55%, mild mid to distal apical septal hypokinesis, no significant valve disease, mildly dilated aortic root and ascending aorta
CLEVE 11/28/2023: EF 50 to 55%. No significant valvular disease. No left atrial appendage thrombus. Mildly enlarged aortic root (4.0 cm). Mildly enlarged ascending aorta (4.2 cm).
Lexiscan nuclear stress test 10/02/2023: Fixed defect in apical anterior segment consistent with infarction, EF 56%
ECHO 08/26/24: EF 60 to 65%, moderate concentric LVH, aortic sclerosis, mildly dilated aortic root, no significant change compared to prior
Plan:
He appears stable from a cardiac standpoint.
Heart rate is controlled with IV diltiazem. Rate control unlikely to be adequate if IV diltiazem is stopped. Will renew.
Tentative plan will be for transesophageal echo and cardioversion on Friday.
Progress Note - Industrial Safety And Health Manager
Subjective
Date of Service: August 28, 2024:
64-year-old man with paroxysmal atrial fibrillation, often financially constrained regarding Xarelto, admitted now with PAF. Was scheduled for PVI September 10, 2024.
PMH: CAD, EDUAR to LAD August 2017, circumflex and mid LAD April 2017, diagonal PCI 2017, mid RCA PCI 2008, history of ischemic cardiomyopathy with improved EF, hyperlipidemia, pancreatitis, hypertension, obesity
PSH: Arthroscopic right knee surgery, ulnar release left arm,
Non-smoker, some alcoholic beverages on the weekend, lives with son
Current medications: IV diltiazem, rivaroxaban, sotalol 120 mg p.o. twice daily, atorvastatin 80 mg a day, ezetimibe 10 mg a day, metoprolol 100 a.m. 50 p.m., long-acting lisinopril 40 mg a day amlodipine 5 mg a day
He offers no complaints
131/100, pulse 76, respiratory rate 16, afebrile, head neck exam unremarkable, lungs are clear, irregular rate and rhythm, no obvious murmurs, extremities without clubbing cyanosis or edema
ECG atrial fibrillation controlled ventricular response, left axis deviation
Hemoglobin 16 white count 7.1, platelets 160, BUN and creatinine 16 and 0.7, troponin undetectable
Objective
Labs:
08/28/24 03:59
08/28/24 03:59
Labs
Hgb 16.4 g/dL (13.0-18.0) 08/28/24 03:59
Hct 46.7 % (39.0-52.0) 08/28/24 03:59
Plt Count 160 10^3/uL (130-400) 08/28/24 03:59
Sodium 137 mmol/L (135-145) 08/28/24 03:59
Potassium 3.9 mmol/L (3.5-5.1) 08/28/24 03:59
BUN 16 mg/dl (9-20) 08/28/24 03:59
Creatinine 0.7 mg/dL (0.7-1.3) 08/28/24 03:59
Glucose 126 mg/dl (70-99) H 08/28/24 03:59
Troponins
08/28/24
03:59
Troponin I < 0.012
Vital Signs and I&O:
Vital Signs
Temp Pulse Resp BP Pulse Ox
36.6 C 76 16 131/100 97
08/28/24 11:45 08/28/24 11:45 08/28/24 11:45 08/28/24 08:11 08/28/24 11:45
Vital Signs
Temp Pulse Resp BP Pulse Ox
36.6 C 76 16 131/100 97
08/28/24 11:45 08/28/24 11:45 08/28/24 11:45 08/28/24 08:11 08/28/24 11:45
Intake & Output
08/26/24 08/27/24 08/28/24 08/29/24
07:59 07:59 07:59 07:59
Intake Total 540 / 540
Balance 540 / 540
Physical Exam
Physical Exam
See above
--- NOTE | 2024-08-28 16:15 | PTCARENOTE ---
Pt remains in atrial fibrillation. Cardizem drip infusing at 5 mg/hr. Pt denies chest pain or SOB. Orders noted. Will monitor.
[2024-08-28] MEDS: XARELTO 20 MG PO (17:39)
[2024-08-28] MEDS: TOPROL XL 50 MG PO (17:39)
--- NOTE | 2024-08-28 20:01 | PTCARENOTE ---
Received patient at change of shift. Afib on the monitor, HR in the 80s. Cardizem running as per protocol, see documentation. No complaints from pt at this time, call lares within reach.
[2024-08-28] MEDS: CARDIZEM 125 IV (22:09)
[2024-08-28] MEDS: KLONOPIN 1 MG PO (22:10)
[2024-08-29 03:59] VITALS: BP 125/82
[2024-08-29 04:54] LABS: Blood Urea Nitrogen 15 mg/dl (9-20); Calcium 8.7 mg/dl (8.4-10.2); Carbon Dioxide 21 mmol/L (22-30); Chloride 108 mmol/L (98-107); Estimated Creatinine Clearance > 125 ml/min; Glucose 119 mg/dl (70-99); Potassium 4.1 mmol/L (3.5-5.1); Sodium 137 mmol/L (135-145); eGFR > 60.00
[2024-08-29 07:04] VITALS: BP 124/90
[2024-08-29] MEDS: BETAPACE 120 MG PO ×2 (09:00→19:17)
[2024-08-29] MEDS: TOPROL XL 100 MG PO (09:00)
[2024-08-29] MEDS: ZESTRIL 40 MG PO (09:01)
[2024-08-29] MEDS: ZETIA 10 MG PO (09:01)
[2024-08-29] MEDS: NORVASC 5 MG PO (09:01)
[2024-08-29] MEDS: LIPITOR 80 MG PO (09:01)
--- NOTE | 2024-08-29 09:24 | W.PN.CARDCBS ---
Today's Communication / Plan
-
Transesophageal echo/cardioversion in the morning
Impression / Plan
-
PCP: Dileep Ortiz
Primary Machine Heddle Cleaner: Dr. Fitzpatrick
Impression:
Presents with tachycardia, palpitations
Paroxysmal atrial fibrillation
Status post multiple CLEVE/CV
Has failed amiodarone
Chronic sotalol therapy
Chronic OAC with xarelto
Scheduled for PVI 09/10/24
History of CAD/[place] with multiple PCIs:
LAD August 2017
LCX/mid LAD April 2017
Diagonal February 2017
Mid RCA August 2008
Recovered ischemic cardiomyopathy with last EF 50-55% 05/2023 and CLEVE 11/2023
Hyperlipidemia
History of recurrent pancreatitis
Hypertension
Obesity
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
History of right lower leg fracture
Noncompliance due to insurance/monetary issues
CLEVE 05/10/2024: EF 55 to 60%, mild MR, mild TR, mildly dilated aortic root at 4.0 cm. No left atrial appendage thrombus
ECHO 06/05/2023: Definity used, EF 50 to 55%, mild mid to distal apical septal hypokinesis, no significant valve disease, mildly dilated aortic root and ascending aorta
CLEVE 11/28/2023: EF 50 to 55%. No significant valvular disease. No left atrial appendage thrombus. Mildly enlarged aortic root (4.0 cm). Mildly enlarged ascending aorta (4.2 cm).
Lexiscan nuclear stress test 10/02/2023: Fixed defect in apical anterior segment consistent with infarction, EF 56%
ECHO 08/26/24: EF 60 to 65%, moderate concentric LVH, aortic sclerosis, mildly dilated aortic root, no significant change compared to prior
Plan:
He remains with rate controlled atrial fibrillation on IV diltiazem, sotalol and oral metoprolol.
He is anticoagulated.
No evidence of heart failure.
Will plan on CLEVE cardioversion in the a.m.
Progress Note - Machine Heddle Cleaner
Subjective
Date of Service: August 29, 2024:64-year-old man with paroxysmal atrial fibrillation, often financially constrained regarding Xarelto, admitted now with PAF. Was scheduled for PVI September 10, 2024.
PMH: CAD, EDUAR to LAD August 2017, circumflex and mid LAD April 2017, diagonal PCI 2017, mid RCA PCI 2008, history of ischemic cardiomyopathy with improved EF, hyperlipidemia, pancreatitis, hypertension, obesity
PSH: Arthroscopic right knee surgery, ulnar release left arm
Current meds: Rivaroxaban 20 mg a day, sotalol 120 mg twice daily, atorvastatin 80 mg a day, ezetimibe 10 mg a day, metoprolol ER 100 mg a.m. 50 mg p.m., lisinopril 40 mg a day, amlodipine 5 mg a day
124/98, pulse 86, respiratory 18, no distress, head neck exam unremarkable, lungs are clear, irregular rate and rhythm, no obvious murmurs, JVD okay, not much edema, abdomen obese
BUN/creatinine are 15 and 0.8, potassium is 4.1
Objective
Labs:
08/28/24 03:59
08/29/24 04:04
Labs
Hgb 16.4 g/dL (13.0-18.0) 08/28/24 03:59
Hct 46.7 % (39.0-52.0) 08/28/24 03:59
Plt Count 160 10^3/uL (130-400) 08/28/24 03:59
Sodium 137 mmol/L (135-145) 08/29/24 04:04
Potassium 4.1 mmol/L (3.5-5.1) 08/29/24 04:04
BUN 15 mg/dl (9-20) 08/29/24 04:04
Creatinine 0.8 mg/dL (0.7-1.3) 08/29/24 04:04
Glucose 119 mg/dl (70-99) H 08/29/24 04:04
Troponins
08/28/24
03:59
Troponin I < 0.012
Vital Signs and I&O:
Vital Signs
Temp Pulse Resp BP Pulse Ox
36.4 C 86 18 124/90 97
08/29/24 07:54 08/29/24 09:00 08/29/24 07:54 08/29/24 09:00 08/29/24 07:54
Vital Signs
Temp Pulse Resp BP Pulse Ox
36.4 C 86 18 124/90 97
08/29/24 07:54 08/29/24 09:00 08/29/24 07:54 08/29/24 09:00 08/29/24 07:54
Intake & Output
08/27/24 08/28/24 08/29/24 08/30/24
07:59 07:59 07:59 07:59
Intake Total 540 / 540 860 / 860
Balance 540 / 540 860 / 860
Physical Exam
Physical Exam
See above
[2024-08-29 09:30] VITALS: BMI 38.0
[2024-08-29 11:06] VITALS: BP 126/86
--- NOTE | 2024-08-29 11:25 | W.PN.HOSP.TC ---
Today's Communication/Plan
-
IV Cardizem drip. Antiarrhythmics and anticoagulation. Plan for CLEVE cardioversion tomorrow
Assessment / Plan
Assessment / Plan
Physical exam:
General: Acutely ill
HEENT: Normocephalic, Atraumatic and Moist Mucous Membranes
Respiratory: Clear to Auscultation; Negative Wheezes, Rales or Rhonchi
Cardiac: Irregular rate and rhythm, tachycardic, and S1/S2
GI: Soft, Nontender and Nondistended
Musculoskeletal: No Clubbing, No Cyanosis and No Edema
Neuro: Awake, Alert and Oriented, no neurological deficit
Psych: Calm
A/P:
Paroxysmal atrial fibrillation with rapid ventricular response:
Admit to IVU
Rate control on IV Cardizem drip -renew orders today since still not well-controlled
Metoprolol succinate 100 mg p.o. daily and 50 mg in the evening
Antiarrhythmic with sotalol 120 mg p.o. twice a day
Anticoagulation with Xarelto 20 mg p.o. in the evening
Cardiology consult appreciated
Recovered ischemic cardiomyopathy:
Monitor volume status
Monitor ins and outs and daily weights
History of CAD:
Continue anti-ischemic regimen
Hypertension:
Continue his home medications
Hyperlipidemia:
Continue statins and Zetia
Obesity:
Lifestyle changes modification
History of recurrent pancreatitis:
Monitor for recurrence
History of noncompliance:
Reinforced importance of compliance
DVT prophylaxis:
Xarelto
CODE STATUS:
Full code
Total time spent on today's encounter was 52 minutes which included time spent in counseling the patient/family regarding diagnosis and treatment plan as listed above, goals of care, and symptom management. Case was discussed with nursing staff,
specialists, and care coordinators/case management. All labs and imaging personally reviewed by me. Remainder the time spent in detailed review of previous records, lab data, imaging, and other medical provider documentation.
Anticipated Discharge: 24 - 48 hours
Subjective/Interval History
-
Date of Service: August 29, 2024
Patient denies any chest pain or shortness of breath today but does relate palpitations on and off. Afebrile
Objective Data
-
Labs:
Laboratory Results
08/29/24
04:04
Sodium 137
Potassium 4.1
Chloride 108 H
Carbon Dioxide 21 L
BUN 15
Creatinine 0.8
Glucose 119 H
Calcium 8.7
Vital Signs:
Vital Signs
Temp Pulse Resp BP Pulse Ox
97.5 F 88 18 124/90 97
08/29/24 07:54 08/29/24 09:30 08/29/24 07:54 08/29/24 09:00 08/29/24 07:54
I&O
08/28/24 08/29/24 08/30/24
06:59 06:59 06:59
Intake Total 540 / 540 860 / 860
Balance 540 / 540 860 / 860
--- NOTE | 2024-08-29 13:25 | PTCARENOTE ---
Pt remains in atrial fibrillation. Discussed plan of care. Will monitor.
[2024-08-29 15:09] VITALS: BP 104/72
[2024-08-29] MEDS: TOPROL XL 50 MG PO (17:50)
[2024-08-29] MEDS: XARELTO 20 MG PO (17:50)
[2024-08-29 19:18] VITALS: BP 118/96
[2024-08-29] MEDS: KLONOPIN 1 MG PO (22:14)
[2024-08-29] MEDS: CARDIZEM 125 IV (22:14)
[2024-08-29 22:16] VITALS: BP 128/84
[2024-08-30 04:33] VITALS: BP 117/89
[2024-08-30 04:59] LABS: Hematocrit 47.6 % (39.0-52.0); Hemoglobin 16.8 g/dL (13.0-18.0); Mean Corp Hgb Conc. 35.3 g/dL (33.0-37.0); Mean Corpuscular Volume 93.9 fL (80.0-94.0); Platelet Count 156 10^3/uL (130-400); Red Cell Dist. Width 13.0 % (11.5-14.5)
[2024-08-30 05:14] LABS: Blood Urea Nitrogen 17 mg/dl (9-20); Calcium 9.0 mg/dl (8.4-10.2); Carbon Dioxide 24 mmol/L (22-30); Chloride 109 mmol/L (98-107); Estimated Creatinine Clearance > 125 ml/min; Glucose 114 mg/dl (70-99); Magnesium 2.1 mg/dl (1.6-2.3); Potassium 4.2 mmol/L (3.5-5.1); Sodium 136 mmol/L (135-145); eGFR > 60.00
[2024-08-30 07:05] VITALS: BP 130/86
--- NOTE | 2024-08-30 08:20 | W.PN.HOSP.TC ---
Today's Communication/Plan
-
Cardioversion today. Discharge planning
Assessment / Plan
Assessment / Plan
Physical exam:
General: No acute distress
HEENT: Normocephalic, Atraumatic and Moist Mucous Membranes
Respiratory: Clear to Auscultation; Negative Wheezes, Rales or Rhonchi
Cardiac: Irregular rate and rhythm, tachycardic, and S1/S2
GI: Soft, Nontender and Nondistended
Musculoskeletal: No Clubbing, No Cyanosis and No Edema
Neuro: Awake, Alert and Oriented, no neurological deficit
Psych: Calm
A/P:
Paroxysmal atrial fibrillation with rapid ventricular response:
Rate control on IV Cardizem drip -renew orders today since still not well-controlled
Metoprolol succinate 100 mg p.o. daily and 50 mg in the evening
Antiarrhythmic with sotalol 120 mg p.o. twice a day
Anticoagulation with Xarelto 20 mg p.o. in the evening
Cardiology consult appreciated
Plan for CLEVE cardioversion today
If cardioversion successful possible discharge today if not he will need to remain in the hospital.
Discharge planning once cleared by cardiology
Recovered ischemic cardiomyopathy:
Monitor volume status
Monitor ins and outs and daily weights
History of CAD:
Continue anti-ischemic regimen
Hypertension:
Continue his home medications
Hyperlipidemia:
Continue statins and Zetia
Obesity:
Lifestyle changes modification
History of recurrent pancreatitis:
Monitor for recurrence
History of noncompliance:
Reinforced importance of compliance
DVT prophylaxis:
Xarelto
CODE STATUS:
Full code
Time spent 35 minutes
Anticipated Discharge: Today
Subjective/Interval History
-
Date of Service: August 30, 2024
Patient denies chest pain or shortness of breath.
Objective Data
-
Labs:
Laboratory Results
08/30/24
04:43
WBC 7.4
Hgb 16.8
Hct 47.6
Plt Count 156
Sodium 136
Potassium 4.2
Chloride 109 H
Carbon Dioxide 24
BUN 17
Creatinine 0.8
Glucose 114 H
Calcium 9.0
Vital Signs:
Vital Signs
Temp Pulse Resp BP Pulse Ox
97.5 F 81 20 117/89 97
08/30/24 07:05 08/30/24 04:45 08/30/24 07:05 08/30/24 04:33 08/30/24 07:05
I&O
08/29/24 08/30/24 08/31/24
06:59 06:59 06:59
Intake Total 860 / 860 900 / 900
Balance 860 / 860 900 / 900
--- NOTE | 2024-08-30 08:54 | W.PN.CARDCBS ---
Addendum entered and electronically signed by Janusz Person MD 08/30/24 09:43:
I saw and examined the patient.
The RUSSIAN RUBBER or PA's note was reviewed and I agree with the note.
Comment: General: Well developed, well nourished in NAD.
Neck: Supple, no JVD, HJR, carotids +2 B/L, no bruits bilaterally.
Heart: Non displaced PMI, irregular, no murmurs, No S3, S4, no rubs.
Lungs: Scattered rhonchi
Extremities: No clubbing, cyanosis or edema bilaterally.
Neuro: Grossly nonfocal, awake, alert and oriented x3.
For CLEVE/cardioversion later today. Possible discharge afterwards
Original Note:
Today's Communication / Plan
-
N.p.o.
CLEVE/cardioversion today
Continue sotalol, Toprol, amlodipine and Xarelto
Impression / Plan
-
PCP: Dileep Ortiz
Primary Enamel Finisher: Dr. Fitzpatrick
Impression:
Presented 08/27/2024 with tachycardia, palpitations
Paroxysmal atrial fibrillation
Status post multiple CLEVE/CV
Has failed amiodarone
Chronic sotalol therapy
Chronic OAC with xarelto
Scheduled for PVI 09/10/24
History of CAD/[place] with multiple PCIs:
LAD August 2017
LCX/mid LAD April 2017
Diagonal February 2017
Mid RCA August 2008
Recovered ischemic cardiomyopathy with last EF 50-55% 05/2023 and CLEVE 11/2023
Hyperlipidemia
History of recurrent pancreatitis
Hypertension
Obesity
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
History of right lower leg fracture
Noncompliance due to insurance/monetary issues
CLEVE 05/10/2024: EF 55 to 60%, mild MR, mild TR, mildly dilated aortic root at 4.0 cm. No left atrial appendage thrombus
ECHO 06/05/2023: Definity used, EF 50 to 55%, mild mid to distal apical septal hypokinesis, no significant valve disease, mildly dilated aortic root and ascending aorta
CLEVE 11/28/2023: EF 50 to 55%. No significant valvular disease. No left atrial appendage thrombus. Mildly enlarged aortic root (4.0 cm). Mildly enlarged ascending aorta (4.2 cm).
Lexiscan nuclear stress test 10/02/2023: Fixed defect in apical anterior segment consistent with infarction, EF 56%
ECHO 08/26/24: EF 60 to 65%, moderate concentric LVH, aortic sclerosis, mildly dilated aortic root, no significant change compared to prior
Plan:
- Patient presented due to symptomatic recurrence of atrial fibrillation
- No evidence of heart failure and EF preserved on recent echocardiogram
- he missed doses of xarelto 08/17-08/20/24, resumed as of 08/21. Will proceed with CLEVE/CV today (08/30)
- Rates now controlled with IV cardizem gtt 5 mg/hour. Discontinue following cardioversion
- continue sotalol, toprol
- continue xarelto
- he is scheduled for PVI 09/10/24, had preadmission testing and preablation CT 08/26/2024
- we discussed importance of medication compliance pre and post ablation.
Progress Note - Enamel Finisher
Subjective
Date of Service: August 30, 2024
Patient seen and examined. Patient lying comfortably in bed on diltiazem drip
Objective
Labs:
08/30/24 04:43
08/30/24 04:43
Labs
Hgb 16.8 g/dL (13.0-18.0) 08/30/24 04:43
Hct 47.6 % (39.0-52.0) 08/30/24 04:43
Plt Count 156 10^3/uL (130-400) 08/30/24 04:43
Sodium 136 mmol/L (135-145) 08/30/24 04:43
Potassium 4.2 mmol/L (3.5-5.1) 08/30/24 04:43
BUN 17 mg/dl (9-20) 08/30/24 04:43
Creatinine 0.8 mg/dL (0.7-1.3) 08/30/24 04:43
Glucose 114 mg/dl (70-99) H 08/30/24 04:43
Troponins
08/28/24
03:59
Troponin I < 0.012
Vital Signs and I&O:
Vital Signs
Temp Pulse Resp BP Pulse Ox
97.5 F 81 20 117/89 97
08/30/24 07:05 08/30/24 04:45 08/30/24 07:05 08/30/24 04:33 08/30/24 07:05
Vital Signs
Temp Pulse Resp BP Pulse Ox
97.5 F 81 20 117/89 97
08/30/24 07:05 08/30/24 04:45 08/30/24 07:05 08/30/24 04:33 08/30/24 07:05
Intake & Output
08/28/24 08/29/24 08/30/24 08/31/24
06:59 06:59 06:59 06:59
Intake Total 540 / 540 860 / 860 900 / 900
Balance 540 / 540 860 / 860 900 / 900
Physical Exam
Physical Exam
GEN: No distress, awake, Ox3, lying in bed
HEENT: supple, anicteric, mmm
LUNGS: CTA, no wheezes/rales
CV: Irregularly irregular, rate controlled, S1/S2,, no murmur, rub or gallop
ABD: soft, BS+, NT/ND
EXT: No edema, clubbing or cyanosis
NEURO: Gross non-focal
SKIN: No rash, warm, dry, pink
[2024-08-30] MEDS: ZETIA 10 MG PO (09:19)
[2024-08-30] MEDS: ZESTRIL 40 MG PO (09:19)
[2024-08-30] MEDS: BETAPACE 120 MG PO (09:20)
[2024-08-30] MEDS: TOPROL XL 100 MG PO (09:20)
[2024-08-30] MEDS: LIPITOR 80 MG PO (09:20)
[2024-08-30] MEDS: NORVASC 5 MG PO (09:20)
--- NOTE | 2024-08-30 09:23 | PTCARENOTE ---
received patient this am awake, remains NPO for CLEVE/CV. monitor shows Afib, VSS. IV Cardizem @ 5cc/hr via right forearm.
--- NOTE | 2024-08-30 10:27 | CM ---
Reviewed chart. Met with Mr. Li to review discharge plans. He states he is feeling well and waiting for his Cardioversion. Prior to admission he resides with his son in a third floor walk-up apartment. He has thrre flights of steps to get
to his apartment. Prior to admission he was independent with ambulation and adls. He does not have any DME in the home. He has a prescription plan and uses [facility]. Medical work-up in progress. The discharge plan is to return home with his
son when medically stable.
[2024-08-30 11:12] VITALS: BP 114/92
--- NOTE | 2024-08-30 11:55 | W.DCSUMMARY ---
Discharge Summary
Discharge Data
Date of Admission: 08/27/24
Date of Discharge: 08/30/24
Total time spent discharging patient (in min): 35
-
Pending Results: No
Hospital Course
Patient 64-year-old male with history of A-fib, CAD, hypertension, hyperlipidemia, NITISH, recurrent pancreatitis, noncompliance, came into the hospital for recurrence of A-fib. Patient had multiple hospitalization for similar events. Cardiology
consulted. He was placed on Cardizem drip and continued on his oral beta-blockers, oral antiarrhythmics, and oral anticoagulation. His atrial fibrillation was difficult to control and he has to undergo electrical cardioversion. He converted to
normal sinus rhythm. He is scheduled for PVI on 09/10 and then will be reevaluated as outpatient by cardiology. Cardiology cleared him for discharge today.
Discharge duration: 35 minutes
Discharge Plan
-
Patient Disposition: Home (Routine Discharge)
Discharge Diagnosis/Procedures: Paroxysmal atrial fibrillation. History of recovered ischemic cardiomyopathy.
Diet: Low Cholesterol
Activity: As tolerated
Blood Work: Please PCP to order CBC, BMP within 1 week
Referrals:
Dileep Ortiz MD [Family Provider, Family Practice] - in less than 1 week
Prescriptions:
Continued
ezetimibe 10 MG tablet
10 mg PO DAILY
atorvastatin 80 MG tablet
80 mg PO DAILY
lisinopril 40 mg Tablet
40 mg PO DAILY
metoprolol succinate [Toprol XL] 50 mg Tablet Extended Release 24 Hr
50 mg PO QPM Qty: 0
metoprolol succinate [Toprol XL] 100 mg Tablet Extended Release 24 Hr
100 mg PO DAILY Qty: 0
clonazepam [Klonopin] 1 mg Tablet
1 mg PO HSPRN PRN (Reason: sleep)
amlodipine 5 mg tablet
5 mg PO DAILY Qty: 30 0RF
Xarelto 20 mg tablet
20 mg PO QPM
sotalol 120 mg Tablet
120 mg PO BID Qty: 60 11RF
Discharge Orders:
Discharge Patient (As Directed); Ordered 08/30/24
Ordered By: Lionel Lopez
Care Plan Goals
Care Plan Goals:
Problem: Readiness for enhanced knowledge related to diagnosis and treatment plan
Goal: Understand your diagnosis and treatment plan needs, including medications if applicable.
Instructions: Know your diagnosis, underlying causes and treatment plan options, including medications if applicable. Consult with your health care team to learn about your diagnosis and treatment plan, including medications if applicable.
Discharge Date and Time
Print Language: ESTONIAN
[2024-08-30 12:56] VITALS: BP 123/86
[2024-08-30 12:57] VITALS: BP 123/86
--- NOTE | 2024-08-30 13:46 | PTCARENOTE ---
patient returned from successful CV. monitor shows SB, VSS, patient feels good. IV Cardizem remains on at 5 cc/hr.patient ready to order lunch.
--- NOTE | 2024-08-30 14:11 | PTCARENOTE ---
ANTONINO Deutsch/C'nicko as per Dr. Lopez.
[2024-08-30 16:02] VITALS: BP 142/81
--- NOTE | 2024-08-30 17:21 | PTCARENOTE ---
D/C instructions given to patient, verbalizes understanding. INT D/C;d telemetry d/C'd, personal belonging packed and sent home with patient. d/C to home via wc accompanied by staff.
== END 2024-08-30 17:23 | disposition home or self-care (01) | DRG 310 ==
LOC: IVU 09:58
PROVIDERS: Internal Medicine; ADMITTING PHYSICIAN Hospitalist; CONSULT PHYSICIAN Internal Medicine Cardiovascular Disease; EMERGENCY PHYSICIAN Emergency Medicine; FAMILY PHYSICIAN Family Medicine
PROC: 5A2204Z Restoration of Cardiac Rhythm, Single (ICD-10-PCS; 2024-08-30)
PROC: B24BZZ4 Ultrasonography of Heart with Aorta, Transesophageal (ICD-10-PCS; 2024-08-30)
DX: I48.0 Paroxysmal atrial fibrillation (principal); I25.10 Atherosclerotic heart disease of native coronary artery without angina pectoris; I10 Essential (primary) hypertension; E78.00 Pure hypercholesterolemia, unspecified; E66.9 Obesity, unspecified; I25.5 Ischemic cardiomyopathy; I25.2 Old myocardial infarction; Z59.86 Financial insecurity; Z68.38 Body mass index [BMI] 38.0-38.9, adult; Z79.01 Long term (current) use of anticoagulants; Z79.899 Other long term (current) drug therapy; Z91.120 Patient's intentional underdosing of medication regimen due to financial hardship; Z95.5 Presence of coronary angioplasty implant and graft; G47.33 Obstructive sleep apnea (adult) (pediatric)
CPT/HCPCS: 80048; 80053; 83735; 84484; 85025; 85027; 92960; 93005; 93312; 93320; 93325; 96365; 96366; 99291

== ENCOUNTER 2024-09-10 07:03 | Day surgery (SDC) | payer OTHER, SELFPAY ==
[2024-08-26 08:55] VITALS: BMI 40.0
[2024-08-26 09:27] LABS: Hematocrit 48.6 % (39.0-52.0); Hemoglobin 17.0 g/dL (13.0-18.0); Mean Corp Hgb Conc. 35.0 g/dL (33.0-37.0); Mean Corpuscular Volume 94.9 fL (80.0-94.0); Nucleated Red Blood Cells % 0 % (-); Platelet Count 163 10^3/uL (130-400); Red Cell Dist. Width 13.1 % (11.5-14.5)
[2024-08-26 09:30] LABS: INR 1.48; PT 18.5 Sec (11.4-14.6)
[2024-08-26 09:32] LABS: ALT (SGPT) 27 U/L (0-50); AST (SGOT) 15 U/L (17-59); Albumin 4.5 g/dl (3.5-5.0); Alkaline Phosphatase 73 U/L (38-126); Blood Urea Nitrogen 18 mg/dl (9-20); Calcium 9.3 mg/dl (8.4-10.2); Carbon Dioxide 29 mmol/L (22-30); Chloride 106 mmol/L (98-107); Estimated Creatinine Clearance 111 ml/min; Glucose 141 mg/dl (70-99); Magnesium 2.1 mg/dl (1.6-2.3); Potassium 4.7 mmol/L (3.5-5.1); Sodium 140 mmol/L (135-145); Total Protein 6.9 g/dl (6.3-8.2); eGFR > 60.00
[2024-09-10] VITALS (13 sets, daily range): BP systolic 117–161; BP diastolic 73–97; BMI 40.0
[2024-09-10] MEDS: NSS 500 IV (08:46)
[2024-09-10] MEDS: PROTONIX IV 40 MG IV (09:39)
[2024-09-10] MEDS: EMEND 40 MG PO (09:51)
--- NOTE | 2024-09-10 09:58 | PTCARENOTE ---
Pt reported ' chest pain, possible muscle pain , gas pains' encircling midsternal and epigastric area. Unable to rate by number and lasting approximately 15 minutes while resting on stretcher. EkG and Protonix per Dr Patel. Dr Fitzpatrick was asked to
look at the EKG. ''No EKG changes' remarked. Nothing to do at this time. Dr Lynn also notified while he was in a case.
--- NOTE | 2024-09-10 10:50 | ITS.CL.ABL ---
Admitting Manager - Ablation
Ablation
Procedure Report:
Primary Detasseling Crew Supervisor: Dr Kali Fitzpatrick
Procedure Date: 09/10/2024
Patient History:
Patient is a pleasant 64-year-old male with a past medical history significant for obesity, hypertension, hyperlipidemia, CAD with prior stenting, ischemic cardiomyopathy with recovered EF, symptomatic paroxysmal atrial fibrillation.
See H&P for complete details.
Indication:
Symptomatic paroxysmal atrial fibrillation
Early recurrence despite antiarrhythmic
Intolerance to amiodarone
Arrhythmia Specific History:
Prior Medical Therapies for Rate and Rhythm Control:
[ ] Beta-eliseo
[ ] Calcium channel-eliseo
X Amiodarone
[ ] Dronederone
X Sotalol
[ ] Flecainide
[ ] Dofetilide
X Options limited by bradycardia
[ ] Options limited by comorbid renal disease
Prior Procedural Therapies for AF/AFL:
X Cardioversion
[ ] Pulmonary Vein Isolation
[ ] Posterior Wall Isolation
[ ] Additional lines (Specify)
[ ] Surgical Turcios-MAZE or PVI (Specify)
Procedure Performed:
X AF ablation procedure (80166) -- includes LA/CS pacing, trans-septal, 3D mapping, + ICE
[ ] +IV drug (42698)
[ ] +Other Arrhythmia (29596)
[ ] +Other AF Line/ablation (07671)
Risks and expected recovery has been explained in detail. Alternative options have been explored, and in a shared-decision making fashion we have decided that this was the most appropriate procedure.
Method
NPO status confirmed. Grounding pad applied. Defibrillator pads applied. Continuous surface ECG, pulse oximetry, and blood pressure were monitored. Procedure was performed under general anesthesia, with anesthesia services.
Both groins were clipped, prepped with Chloraprep, and draped in sterile fashion. Time out was called. Local anesthesia administered with bupivacaine. The right [and left femoral vein were]femoral vein was accessed for catheter placement, using
ultrasound guidance (images saved to record), micro-puncture needle/wire, and modified seldinger technique. [ ] sheaths were placed. The following catheters were used:
[ ] Tacticath SE (D/F Curve) ablation catheter
X Viewflex 9Fr ICE catheter
X Inquiry decapolar 6Fr diagnostic catheter
[ ] CRD Hex 6Fr
X FlexCath Contour 10 Fr with PulseSelect PFA Catheter
X Advisor HD Grid Mapping Catheter, SE
[ ] Acuson AcuNav 8 Fr ICE catheter
[ ]Other: [ ]
Intracardiac ultrasound (ICE) was carefully advanced into the right atrium to guide sheath placement over a J-wire, catheter placement, guide trans-septal puncture, identify potential complications, identify anatomic structures and ensure proper
contact between ablation catheter and tissue.
Heparin was given prior to trans-septal puncture. Heparin was given to achieve and maintain a target ACT of 300-400 seconds throughout the procedure.
Trans-septal access was performed under ICE guidance. The trans-septal puncture was performed with a SafeSept wire through a Brockenbrough needle assembly through the steerable sheath. The wire was visualized as it entered the LSPV and system
advanced under ICE guidance and fluoroscopy into the LA. The Brockenbrough needle assembly, SafeSept wire and sheath dilator were removed under negative pressure. LA pressure was measured and recorded.
ICE and 3D mapping was performed to identify relevant cardiac structures. A careful 3D map was created to assess for regions of low-voltage and abnormal electrogram signals using HD grid mapping catheter and PulseSelect catheter. Additional mapping
was performed as outlined below.
Prior to ablation, glycopyrrolate was provided. PulseSelect catheter was advanced over J-wire to the ostium of each vein. Pulmonary vein isolation was performed with ostial and antral lesions in a circumferential manner. Contact was visualized via
EAM, ICE, fluoroscopy, and EGM signals.
Following completion of ablation lesions, a post-ablation voltage/activation map was performed in sinus rhythm. Entrance and exit block were confirmed for each vein.
Catheter and sheath were removed from the left atrium and post-ablation intracardiac echo evaluation was consistent with pre-ablation with no changes and no pericardial effusion and there is no left atrial thrombus or left ventricle thrombus seen.
Electrophysiology study was performed. Hemostasis was obtained with figure of 8 stitch for each groin and with manual pressure. Protamine was used for reversal.
Estimated Blood Loss
5 mL
Complications
None
Fluoroscopy: 2.7 minutes; 31.03 mGy; DAP 3.96
LA Pressure: Pre 12 mmHg, post 19 mmHg
Baseline Intervals:
Rhythm: SR
DE: 157 ms
QRS: 108 ms
QT: 416 ms
QTc: 439 ms
A-A: 900 ms
R-R: 900 ms
Post-Procedure Intervals:
DE: 156 ms
QRS: 102 ms
QT: 428 ms
QTc: 418 ms
AVWB: 390 ms
AVERP: 600/280 ms
AERP: 600/270 ms
Recommendations
- Bedrest with straight-leg precautions as ordered
- Admit with anticipate discharge home tomorrow after overnight observation
- Resume home medications as indicated
- Ok to resume anticoagulation tonight if patient and groin sites stable
- PPI daily for 30 days
- Plan for follow-up in office as scheduled
- Continue sotalol 120 mg twice daily with plan for discontinuation at the 3-month follow-up visit
Faisal Lynn DO, FACC, [facility]
Clinical Cardiac International Nurse
cc: Dr Kali Fitzpatrick, Dr Dileep Ortiz
[2024-09-10 12:12] LABS: ACT-LR - POC 310 Seconds (116-155)
[2024-09-10 12:36] LABS: ACT-LR - POC 350 Seconds (116-155)
[2024-09-10 13:02] LABS: ACT-LR - POC 339 Seconds (116-155)
[2024-09-10] MEDS: NSS (PRESERVATIVE FREE) 10 ML IV (13:02)
[2024-09-10 13:21] LABS: ACT-LR - POC 379 Seconds (116-155)
[2024-09-10 13:33] LABS: ACT-LR - POC 208 Seconds (116-155)
[2024-09-10] MEDS: TYLENOL 650 MG PO ×2 (14:16→19:53)
--- NOTE | 2024-09-10 15:41 | PTCARENOTE ---
Patient admitted to IVU. Right femoral dressing CDI with figure 8, +1 pedal pulse. HOB flat until 1730. NSR on telemetry, denies chest pain, BP 128/86. Oriented to room and call lares placed in reach
--- NOTE | 2024-09-10 16:23 | CM ---
Reviewed chart. Met with Mr. Li to review discharge plans. He states prior to admission he resdies with his son in a third floor walk-up apartment. He states he has three flights of steps to get to his apartment. He states prior to admission
he was independent with ambulation and adls. He states he does not have any DME in the home. He states he has a prescription plan. The discharge plan is to return home with his son when medically stable.
[2024-09-10] MEDS: TOPROL XL 50 MG PO (18:22)
[2024-09-10] MEDS: XARELTO 20 MG PO (18:22)
--- NOTE | 2024-09-10 18:29 | PTCARENOTE ---
Figure 8 sutures removed at 1730. Right femoral dressing dry, call lares in reach
[2024-09-10] MEDS: BETAPACE 120 MG PO (19:51)
[2024-09-10] MEDS: KLONOPIN 1 MG PO (22:28)
[2024-09-10] MEDS: ANESTHETIC LOZENGE 1 LOZENGE PO (22:28)
--- NOTE | 2024-09-10 22:44 | PTCARENOTE ---
Received pt at change of shift resting in bed. SR on tele, HR 60's-70's. pt denies any CP or SOB. Right femoral site C.D.I No bleeding or hematoma noted at this time. PRN Tylenol administered for sore throat per pt request--see APR. pt also
requesting Klonopin for sleep, administered per pt request. Urinal at bedside. pt encouraged to call RN with any questions/concerns. Call lares within reach.
[2024-09-10] MEDS: NSS IV (22:53)
[2024-09-11 04:15] VITALS: BP 126/89
[2024-09-11] MEDS: ANESTHETIC LOZENGE 1 LOZENGE PO (04:41)
[2024-09-11 05:25] LABS: Hematocrit 42.9 % (39.0-52.0); Hemoglobin 15.3 g/dL (13.0-18.0); Mean Corp Hgb Conc. 35.7 g/dL (33.0-37.0); Mean Corpuscular Volume 93.9 fL (80.0-94.0); Platelet Count 145 10^3/uL (130-400); Red Cell Dist. Width 12.5 % (11.5-14.5)
[2024-09-11 05:50] LABS: Blood Urea Nitrogen 16 mg/dl (9-20); Calcium 8.7 mg/dl (8.4-10.2); Carbon Dioxide 21 mmol/L (22-30); Chloride 106 mmol/L (98-107); Estimated Creatinine Clearance > 125 ml/min; Glucose 184 mg/dl (70-99); Potassium 4.4 mmol/L (3.5-5.1); Sodium 135 mmol/L (135-145); eGFR > 60.00
--- NOTE | 2024-09-11 07:10 | W.PN.CARDCBS ---
Addendum entered and electronically signed by Faisal Lynn DO 09/11/24 08:17:
I saw and examined the patient.
[facility]'s note was reviewed and I agree with the note.
Comment:
Patient is a pleasant 64-year-old male with a past medical history of CAD with prior PCI, ischemic cardiomyopathy with recovered EF, dyslipidemia, recurrent pancreatitis, hypertension, obesity, symptomatic paroxysmal atrial fibrillation with
intolerance to amiodarone and recurrence despite sotalol therapy who underwent pulsed field ablation pulmonary vein isolation ([employer], pulse select) on 09/10/2024.
Patient resting comfortably in bed without complaint. Denies chest pain, shortness of breath, palpitations, or weakness.
Telemetry shows sinus rhythm, PACs. EKG sinus rhythm LAFB.
GENERAL: no acute distress, obese
EYE: sclera anicteric
NECK: Supple, no JVD, no carotid bruit appreciated
ENT: normal nose, moist mucosal membranes
CARDIAC: Regular rate and rhythm, +S1/S2, no murmur, rubs, or gallops
CHEST/PULMONARY: Normal effort, clear breath sounds
ABDOMEN: Soft, without focal tenderness or distention
NEUROLOGICAL: Alert and oriented x3
SKIN: Warm and dry, no rash; right groin site clean, dry, intact dressing in place soft, nontender, no swelling
PSYCH: Normal and appropriate interaction.
A/P as below
Patient stable for discharge from CV standpoint
Continue oral anticoagulation
Continue sotalol therapy with planned discontinuation at 3 months
Continue remaining medications
Activity restrictions reviewed with patient
Original Note:
Today's Communication / Plan
-
D/C to home
[id number]
Impression / Plan
-
PCP: Dileep Ortiz
Primary Fuel Buyer: Dr. Fitzpatrick
Impression:
s/p PVI 09/10/2024
Paroxysmal atrial fibrillation
s/p multiple CLEVE/CV
Has failed amiodarone
Chronic sotalol therapy
s/p PVI 09/10/24
Chronic OAC with xarelto
CAD/CO with multiple PCIs:
LAD August 2017
LCX/mid LAD April 2017
Diagonal February 2017
Mid RCA August 2008
Recovered ischemic cardiomyopathy with last EF 50-55% 05/2023 and CLEVE 11/2023
Hyperlipidemia
History of recurrent pancreatitis
Hypertension
Obesity
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
History of right lower leg fracture
Noncompliance due to insurance/monetary issues
CLEVE 05/10/2024: EF 55 to 60%, mild MR, mild TR, mildly dilated aortic root at 4.0 cm. No left atrial appendage thrombus
ECHO 06/05/2023: Definity used, EF 50 to 55%, mild mid to distal apical septal hypokinesis, no significant valve disease, mildly dilated aortic root and ascending aorta
CLEVE 11/28/2023: EF 50 to 55%. No significant valvular disease. No left atrial appendage thrombus. Mildly enlarged aortic root (4.0 cm). Mildly enlarged ascending aorta (4.2 cm).
ECHO 08/26/24: EF 60 to 65%, moderate concentric LVH, aortic sclerosis, mildly dilated aortic root, no significant change compared to prior
Lexiscan nuclear stress test 10/02/2023: Fixed defect in apical anterior segment consistent with infarction, EF 56%
Plan:
-Patient had successful PVI 09/10/2024 and remains in SR on my review by telemetry 09/11/2024.
-Outpatient dose of sotalol 120 mg BID will be continued. QTc was 487 ms by ECG 09/10/2024 reviewed by me
-Outpatient dose of Xarelto 20 mg daily has been continued
-Patient is stable for discharge to home 09/11/2024
Progress Note - Fuel Buyer
Subjective
Date of Service: September 11, 2024
He feels well, he had some palpitations overnight that correlated with PACs
Objective
Labs:
09/11/24 04:57
09/11/24 04:57
Labs
Hgb 15.3 g/dL (13.0-18.0) 09/11/24 04:57
Hct 42.9 % (39.0-52.0) 09/11/24 04:57
Plt Count 145 10^3/uL (130-400) 09/11/24 04:57
PT 18.5 Sec (11.4-14.6) H 08/26/24 09:02
INR 1.48 08/26/24 09:02
Sodium 135 mmol/L (135-145) 09/11/24 04:57
Potassium 4.4 mmol/L (3.5-5.1) 09/11/24 04:57
BUN 16 mg/dl (9-20) 09/11/24 04:57
Creatinine 0.6 mg/dL (0.7-1.3) L 09/11/24 04:57
Glucose 184 mg/dl (70-99) H 09/11/24 04:57
Vital Signs and I&O:
Vital Signs
Temp Pulse Resp BP Pulse Ox
97.6 F 76 18 126/89 95
09/11/24 04:15 09/11/24 04:45 09/11/24 04:15 09/11/24 04:15 09/11/24 04:15
Vital Signs
Temp Pulse Resp BP Pulse Ox
97.6 F 76 18 126/89 95
09/11/24 04:15 09/11/24 04:45 09/11/24 04:15 09/11/24 04:15 09/11/24 04:15
Intake & Output
09/09/24 09/10/24 09/11/24 09/12/24
06:59 06:59 06:59 06:59
Intake Total 1200 / 1200
Balance 1200 / 1200
Physical Exam
Physical Exam
GEN: AAO x3
LUNGS: RA. CTA without wheeze
CV: SR on tele.
[2024-09-11 08:04] VITALS: BP 141/83
[2024-09-11] MEDS: NORVASC 5 MG PO (08:04)
[2024-09-11] MEDS: BETAPACE 120 MG PO (08:04)
[2024-09-11] MEDS: ASPIR LOW (ENTERIC COATED) 81 MG PO (08:04)
[2024-09-11] MEDS: ZETIA 10 MG PO (08:04)
[2024-09-11] MEDS: LIPITOR 80 MG PO (08:05)
[2024-09-11] MEDS: TOPROL XL 100 MG PO (08:05)
[2024-09-11] MEDS: ZESTRIL 40 MG PO (08:05)
--- NOTE | 2024-09-11 08:05 | W.DS.TRANS ---
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
-
Discharge Instructions:
Sleep Apnea Risk High
Discharge Diagnosis/Procedures Atrial fibrillation
Diet Low Fat,Low Cholesterol
Activity Other activity
Additional Activity no strenuous activity, no heavy lifting, no
bending or twisting for 1 week
Driving Restrictions no driving at least 72 hours
Bathing Restrictions OK to Shower
Instructions:
Stand-Alone Forms: DC Instructions- Cath/EP Lab
Changes to Home Medications: No
Discharge Medications:
DC Medications w/original date entered in [place]
atorvastatin 80 mg tablet 80 mg PO DAILY High cholesterol 05/11/20
ezetimibe 10 mg tablet 10 mg PO DAILY High cholesterol 05/11/20
lisinopril 40 mg tablet 40 mg PO DAILY Blood Pressure 06/04/23
metoprolol succinate 100 mg tablet,extended release 24 hr (Toprol XL) 100 mg PO DAILY Blood Pressure ##0 05/09/24
metoprolol succinate 50 mg tablet,extended release 24 hr (Toprol XL) 50 mg PO QPM Blood Pressure ##0 05/09/24
amlodipine 5 mg tablet 5 mg PO DAILY #30 tabs 05/10/24
clonazepam 1 mg tablet (Klonopin) 1 mg PO HSPRN PRN sleep 05/10/24
rivaroxaban 20 mg tablet (Xarelto) 20 mg PO QPM Blood Clot Prevention/Tx 07/10/24
sotalol 120 mg tablet 120 mg PO BID Arrhythmia #60 tabs 07/13/24
aspirin 81 mg tablet 81 mg PO DAILY 09/10/24
Home Medication Changes
Pending Results: No
--- NOTE | 2024-09-11 09:23 | PTCARENOTE ---
Pt received this am in SR, rate in the 60's to 80's. OOB ad harmony, gait steady. Right groin site dressing dry and intact, site soft with no hematoma. Pt discharged to home with his son. Discharge instructions given and reviewed with good
understanding.
== END 2024-09-10 15:27 | disposition home or self-care (01) ==
LOC: CATH 07:03
PROVIDERS: ATTENDING PHYSICIAN Internal Medicine Cardiovascular Disease; FAMILY PHYSICIAN Family Medicine; REFERRING PHYSICIAN Internal Medicine Interventional Cardiology
DX: I48.0 Paroxysmal atrial fibrillation (principal); Z79.01 Long term (current) use of anticoagulants; Z95.5 Presence of coronary angioplasty implant and graft; I25.10 Atherosclerotic heart disease of native coronary artery without angina pectoris; I25.5 Ischemic cardiomyopathy; I10 Essential (primary) hypertension; E66.9 Obesity, unspecified; Z79.899 Other long term (current) drug therapy; I44.4 Left anterior fascicular block; I35.0 Nonrheumatic aortic (valve) stenosis; E78.00 Pure hypercholesterolemia, unspecified; E88.2 Lipomatosis, not elsewhere classified; I71.21 Aneurysm of the ascending aorta, without rupture; K86.1 Other chronic pancreatitis
CPT/HCPCS: C1894; C1730; C1769; C1892; C1733; C1766; 36415; 75572; 80048; 80053; 83735; 85025; 85027; 85347; 85610; 86850; 86900; 86901; 93005; 93656; C1732; G0378; Q9967

== ENCOUNTER 2025-02-15 14:28 | Emergency (ER) | payer OTHER, SELFPAY ==
[2025-02-15 14:36] VITALS: BP 158/75
[2025-02-15 15:02] LABS: Hematocrit 43.7 % (39.0-52.0); Hemoglobin 15.4 g/dL (13.0-18.0); Mean Corp Hgb Conc. 35.2 g/dL (33.0-37.0); Mean Corpuscular Volume 89.9 fL (80.0-94.0); Nucleated Red Blood Cells % 0 % (-); Platelet Count 167 10^3/uL (130-400); Red Cell Dist. Width 12.8 % (11.5-14.5)
[2025-02-15 15:06] VITALS: BMI 38.7
--- NOTE | 2025-02-15 15:51 | ED.GENMED ---
History of Present Illness
General
Chief Complaint: Nose Bleed
Time Seen by Provider: 02/15/25 15:30
History of Present Illness
History of Present Illness:
Patient is a 64-year-old male with past medical history of A-fib on Xarelto, CAD, hypertension who presents complaining of recurrent nosebleeds for the last several days. Contacted his primary care physician who told him if he had a subsequent
nosebleed he should present to the emergency department. Patient was concerned that he had lost a substantial amount of blood and wanted his hemoglobin checked. Denies any lightheadedness, dizziness fatigue, weakness or any other associated
symptoms. Has not had a nosebleed since 11 AM this morning.
Past History
Past History
ED Past Medical History: Arrthythmia (Atrial fibrillation), CAD, HTN, Hypercholesterolemia, NE (X 2) and Other (Back pain, Numbness in arms and legs)
ED Past Surgical History: Cardiac (Multiple stents) and Orthopedic (right knee surgery, Ulnar nerve removed Left elbow)
Social History
Tobacco: Non-smoker
Alcohol: Occasional
Drug: None
Personal:
Living: with family
Employment: Employed
Family History
Family History: Other (Mother with leukemia)
Phy Exam
General Physical Exam
General Presentation: well appearing and no apparent distress
General Skin: warm and dry
General Habitus: normal
General Mental: alert
General Hydration: appears well hydrated
ENT Exam
ENT Exam: EOMI, pharynx normal, neck supple and normocephalic
Additional ENT: No active bleeding, no clots
Eye Exam
Eye Exam: PERRL, cornea clear and conjunctiva normal
Cardiovascular Exam
Cardiovascular Exam: regular rate/rhythm, no edema, no murmur and normal peripheral pulses
Pulmonary Exam
Pulmonary Exam: lungs clear, no respiratory distress, no rales, no crackles, no rhonchi, no stridor, no wheezing and no cough
Gastrointestinal Exam
Gastrointestinal Exam: normal bowel sounds, non tender, soft, no organomegaly, no pulsatile mass and non distended
Neurological Exam
Neurological Exam: alert, oriented x3, no motor deficits and speech normal
Musculoskeletal Exam
Musculoskeletal Exam: full ROM and no edema
Skin Exam
Skin Exam: normal color, warm/dry, no rash and no petechia
Psychiatric Exam
Psychiatric Exam: normal mood/affect
Course
Orders/Labs/Results
Orders:
Orders
02/15/25 14:48
CBC/With Diff [Complete Blood Count/With Diff] Urgent
Abnormal Lab Results
02/15/25
14:48
MCH 31.7 H pg
(27.0-31.0)
Absolute Lymphs (auto) 0.8 L 10^3/uL
(1.2-3.4)
Absolute Monos (auto) 0.8 H 10^3/uL
(0.1-0.6)
Neutrophils % 77.9 H %
(42.2-75.2)
Lymphocytes % 10.5 L %
(20.5-51.1)
Monocytes % 9.9 H %
(1.7-9.3)
02/15/25 14:48
Vital Signs
Initial and Last Documented VS:
Initial Vital Signs
Temp Pulse Resp BP Pulse Ox
36.4 C 89 18 158/75 97
02/15/25 14:36 02/15/25 14:36 02/15/25 14:36 02/15/25 14:36 02/15/25 14:36
Last Documented Vital Signs
Temp Pulse Resp BP Pulse Ox
36.4 C 78 18 164/95 96
02/15/25 14:36 02/15/25 15:58 02/15/25 15:58 02/15/25 15:58 02/15/25 15:58
MDM/Problems Addressed
Differential Diagnosis Includes:
Epistaxis, anemia
MDM/Problems Addressed:
No evidence epistaxis since arrival in the emergency department. Says nosebleeds have all been self resolving with direct pressure after 25 to 30 minutes. CBC with hemoglobin of 15. In the absence of active epistaxis and no anemia no treatments
are indicated at this time. Discussed with patient using a humidifier and nasal saline to prevent nasal passages from becoming very dry. He should also follow-up with ENT should nosebleeds continue to recur which is already planned per his primary
physician.
*Pulse Oximetry
SaO2: 97
Oxygen Mode of Delivery: Room air
Patient hypoxic: no
*Critical Care Note
Total Time (30-74mins, 75-104mins- exclusive of procedures): Not Applicable
ED Attending Note
-
Portions of this chart may have been created with voice recognition software.� Occasional wrong word or��sound alike� substitutions may have occurred due to the inherent limitations of voice recognition software.
Discharge Plan
Departure
Patient Disposition: Home (Routine Discharge)
Date of Disposition: 02/15/25
Time of Disposition: 15:54
Patient with high blood pressure during this ER visit?: No
Discharge Problem:
Epistaxis, Chronic anticoagulation
Instructions: Nosebleeds (DC)
Prescriptions:
No Action
ezetimibe 10 MG tablet
10 mg PO DAILY
atorvastatin 80 MG tablet
80 mg PO DAILY
lisinopril 40 mg Tablet
40 mg PO DAILY
metoprolol succinate [Toprol XL] 50 mg Tablet Extended Release 24 Hr
50 mg PO QPM Qty: 0
metoprolol succinate [Toprol XL] 100 mg Tablet Extended Release 24 Hr
100 mg PO DAILY Qty: 0
clonazepam [Klonopin] 1 mg Tablet
1 mg PO HSPRN PRN (Reason: sleep)
amlodipine 5 mg tablet
5 mg PO DAILY Qty: 30 0RF
Xarelto 20 mg tablet
20 mg PO QPM
sotalol 120 mg Tablet
120 mg PO BID Qty: 60 11RF
aspirin 81 mg Tablet
81 mg PO DAILY
Referrals:
Dileep Ortiz MD [Family Provider, Family Practice]
Activity Restrictions/Additional Instructions:
You are seen in the emerged permit after multiple nosebleeds over the last several days. No active nosebleed while here in the emergency department. No anemia on blood work. Is important to keep her nasal passages moist especially in the cold dry
weather. You may use a humidifier in your room at night and saline nasal sprays. If your nosebleeds continue can follow-up with the ENT as an outpatient. Return to the emergency department if you develop nosebleeds that are not controlled direct
pressure after 30 minutes or are brisk in nature.
Interventions
Interventions:
*General Assessment Last Done: 02/15/25 14:36
*Neglect/Abuse Screening Last Done: 02/15/25 14:36
*ED COVID-19 Vaccine History Last Done: 02/15/25 14:36
*ED Influenza Vaccine History Last Done: 02/15/25 14:36
[facility] Risk Assessment Tool Last Done: 02/15/25 15:57
*Risk Screen - Suicide (C-SSRS) Last Done: 02/15/25 14:36
*Nursing Disposition Last Done: 02/15/25 16:04
ED-EENT Assessment Last Done: 02/15/25 15:57
Discharge Date and Time
Discharge Date/Time: 02/15/25 16:05
Print Language: SLOVAK
[2025-02-15 15:58] VITALS: BP 164/95
== END 2025-02-15 16:05 | disposition home or self-care (01) ==
LOC: EMR 14:28
PROVIDERS: Emergency Medicine; EMERGENCY PHYSICIAN Emergency Medicine; FAMILY PHYSICIAN Family Medicine
DX: R04.0 Epistaxis (principal); I25.10 Atherosclerotic heart disease of native coronary artery without angina pectoris; I48.91 Unspecified atrial fibrillation; E78.00 Pure hypercholesterolemia, unspecified; I10 Essential (primary) hypertension; I25.2 Old myocardial infarction; Z79.01 Long term (current) use of anticoagulants; Z95.5 Presence of coronary angioplasty implant and graft
CPT/HCPCS: 99283; 85025